=== PATIENT | male | born 1945 | race Caucasian/White ===

== ENCOUNTER → 2016-09-02 | Outpatient (CLI) | payer OTHER ==
[~2016-09-02] MED LIST: ADVIN25/60 INH; ADVIN25050 INH; CMBIN INH; IPRA1AER2 INH; LPT40 PO; LSN10 PO; LSX40 PO; MCRK20 PO; METO-217 PO; PRED10TA PO; TPRSR100 PO
[2016-09-02 17:03] LABS: BASO % 0.5 %; BASO ABS # 0.04 K/uL (0-0.2); COMPLETE YES; EOS % 3.8 %; HEMATOCRIT 44.5 % (42-52); IG% 0.3 %; LYMPH % 14.8 %; LYMPH ABS # 1.17 K/uL (1.2-3.4); MEAN CELL VOLUME 87.4 fL (80-100); MEAN CORPUSCULAR HEMOGLOBIN 29.3 pg (25-34); MEAN CORPUSCULAR HGB CONC 33.5 g/dl (32-36); MONO % 8.6 %; PLATELET COUNT 282 K/uL (130-400); RED BLOOD COUNT 5.09 M/uL (4.7-6.1); WHITE BLOOD COUNT 7.89 K/uL (4.8-10.8)
[2016-09-02 17:41] LABS: BLOOD UREA NITROGEN 13 mg/dl (7-18); BUN/CREATININE RATIO 15.2 (10-20); CALCIUM 9.3 mg/dl (8.5-10.1); CARBON DIOXIDE 27 mmol/L (21-32); CHLORIDE 104 mmol/L (98-107); CREATININE 0.88 mg/dl (0.60-1.40); GLUCOSE 67 mg/dl (70-99); POTASSIUM 4.9 mmol/L (3.5-5.1); SODIUM 141 mmol/L (136-145)
== END | disposition home or self-care (01) ==
LOC: C.LABBFT 17:10
PROVIDERS: ATTEND Internal Medicine
DX: Z00.00 Encounter for general adult medical examination without abnormal findings (principal); J44.9 Chronic obstructive pulmonary disease, unspecified; R06.09 Other forms of dyspnea; I10 Essential (primary) hypertension

== ENCOUNTER 2017-01-20 13:26 | Inpatient (IN) | payer OTHER ==
[~2017-01-20] VITALS: Ht 180.3 cm; Wt 111.7 kg
[~2017-01-20 13:26] MED LIST changes: -ADVIN25/60 INH; -LPT40 PO; -LSN10 PO; -LSX40 PO; -MCRK20 PO; -PRED10TA PO; -TPRSR100 PO
--- NOTE | 2017-01-20 14:25 | EMERGENCY ROOM VISIT NOTE ---
History Report prepared by George: Margarito Mariano Under the Supervision of: Dr. Tegan Jarrett D.O. First contact with patient: 14:00 Chief Complaint: SHORTNESS OF BREATH Stated Complaint: LEG SWELLING, SHORTNESS OF BREATH Nursing Triage Summary: triage note: pt to triage via wheelchair. pt reports "my legs are all swollen up and i can' t breathe i have inhalers but they are all empty, my leg swelling started about 1 week ago." pt reports hx of copd and chf. History of Present Illness The patient is a 71 year old male who presents to the Emergency Room with complaints of constant shortness of breath for the past week which is worsened with lying flat. Additionally, the patient states that he has been having leg swelling. The patient states that he has been coughing, and he is coughing up yellow-green and west sputum but this has been going on for weeks. He states that he uses inhalers, though one of them has run out. States as the week went on, he didn't feel that the nebs were helping as much. The patient states that he has been having some blood in his urine, though he does not have any hematochezia. The patient denies any history of CHF, and he states that his shortness of breath has never been this bad before. He states that he had heart surgery in 2000, and he had an AL and a CABG. The patient states that he is not on oxygen at home, and he is currently a smoker, down to 3 cigs per day. Pt denies headache, change in vision, fevers, chest pain, nausea, vomiting, diarrhea, pain with urination, and melena. Source of History: patient Onset: past week Position: other (global) Quality: other (shortness of breath) Timing: constant Modifying Factors (Worsening): other (lying flat) Note: Associated symptoms: Leg swelling Review of Systems See HPI for pertinent positives & negatives. A total of 10 systems reviewed and were otherwise negative. Past Medical & Surgical Medical Problems: (1) Chronic obstructive lung disease (2) Coronary artery bypass grafting (3) Coronary artery disease Social History Smoking Status: Current Every Day Smoker Marital Status: Occupation Status: employed Current/Historical Medications Scheduled Fluticasone Prop/Salmeterol (Advair Diskus 250/50 Mcg *), 1 PUFF INH BID Ipratropium-Albuterol (Combivent Respimat), 2 PUFFS INH QID Metoprolol Succinate (Toprol Xl), 100 MG PO DAILY Allergies Coded Allergies: Aspirin (Verified Allergy, Unknown, _, 12/16/14) TWO OCCASIONS OF RASH HAS TAKEN IT OTHER TIMES WITHOUT A RASH Physical Exam Vital Signs Date Time Temp Pulse Resp B/P (MAP) Pulse Ox O2 Delivery O2 Flow Rate FiO2 01/20/17 16:35 62 20 179/120 96 Nasal Cannula 1.0 01/20/17 15:17 61 20 142/87 96 Nasal Cannula 1.0 01/20/17 14:27 62 01/20/17 14:20 63 22 137/99 94 Room Air 01/20/17 14:20 94 Room Air 01/20/17 13:32 36.7 65 26 180/96 91 Room Air Physical Exam GENERAL: alert, well appearing, well nourished, no distress, non-toxic EYE EXAM: normal conjunctiva, PERRL and EOM's grossly intact OROPHARYNX: no exudate, no erythema, lips, buccal mucosa, and tongue normal and mucous membranes are moist NECK: supple, no nuchal rigidity, no adenopathy, non-tender LUNGS: Audible rales. Normal chest wall mechanics HEART: no murmurs, S1 normal and S2 normal ABDOMEN: abdomen soft, non-tender, normo-active bowel sounds, no masses, no rebound or guarding. BACK: Back is symmetrical on inspection and there is no deformity, no midline tenderness, no CVA tenderness. SKIN: no rashes and no bruising UPPER EXTREMITIES: upper extremities are grossly normal. LOWER EXTREMITIES: 3+ lower extremity edema. NEURO EXAM: Normal sensorium, cranial nerves II-XII grossly intact, normal speech, no gross weakness of arms, no gross weakness of legs. Gross sensation intact. Medical Decision & Procedures ER Provider Diagnostic Interpretation: Radiology results have been interpreted by the radiologist and reviewed by me. CHEST 2 VIEWS ROUTINE HISTORY: 71 years-old Male sob acute shortness of breath COMPARISON: Chest radiograph 03/14/2013 TECHNIQUE: AP and lateral views of the chest. FINDINGS: Cardiac silhouette is moderately enlarged. Prior median sternotomy. Atherosclerosis of the aorta. Lungs are hyperinflated and hyperlucent suggesting emphysema. Linear subsegmental opacities of the lung bases in the lateral mid lungs bilaterally suggest atelectasis with pleural parenchymal scarring. Mild blunting of the costophrenic angles suggests small effusions, unchanged. The bones of the chest are grossly intact. IMPRESSION: 1. Cardiomegaly without overt pulmonary edema. 2. Emphysema with unchanged blunting of the costophrenic angles suggesting scarring or trace effusions with bibasilar opacities likely reflecting atelectasis The above report was generated using voice recognition software. It may contain grammatical, syntax or spelling errors. Electronically signed by: Jose Mittal M.D. 01/20/2017 2:58 PM Dictated Date/Time: 01/20/2017 2:56 PM Laboratory Results 01/20/17 14:08 Red Blood Count 4.94, Mean Corpuscular Volume 90.3, Mean Corpuscular Hemoglobin 31.0, Mean Corpuscular Hemoglobin Concent 34.3, Mean Platelet Volume 10.1, Neutrophils (%) (Auto) 83.8, Lymphocytes (%) (Auto) 8.2, Monocytes (%) (Auto) 6.7, Eosinophils (%) (Auto) 0.9, Basophils (%) (Auto) 0.3, Neutrophils # (Auto) 8.03, Lymphocytes # (Auto) 0.79, Monocytes # (Auto) 0.64, Eosinophils # (Auto) 0.09, Basophils # (Auto) 0.03 01/20/17 14:08 Test 01/20/17 14:08 01/20/17 14:20 01/20/17 16:30 White Blood Count 9.59 K/uL (4.8-10.8) Red Blood Count 4.94 M/uL (4.7-6.1) Hemoglobin 15.3 g/dL (14.0-18.0) Hematocrit 44.6 % (42-52) Mean Corpuscular Volume 90.3 fL (80-100) Mean Corpuscular Hemoglobin 31.0 pg (25-34) Mean Corpuscular Hemoglobin Concent 34.3 g/dl (32-36) Platelet Count 216 K/uL (130-400) Mean Platelet Volume 10.1 fL (7.4-10.4) Neutrophils (%) (Auto) 83.8 % Lymphocytes (%) (Auto) 8.2 % Monocytes (%) (Auto) 6.7 % Eosinophils (%) (Auto) 0.9 % Basophils (%) (Auto) 0.3 % Neutrophils # (Auto) 8.03 K/uL (1.4-6.5) Lymphocytes # (Auto) 0.79 K/uL (1.2-3.4) Monocytes # (Auto) 0.64 K/uL (0.11-0.59) Eosinophils # (Auto) 0.09 K/uL (0-0.5) Basophils # (Auto) 0.03 K/uL (0-0.2) RDW Standard Deviation 48.9 fL (36.4-46.3) RDW Coefficient of Variation 14.8 % (11.5-14.5) Immature Granulocyte % (Auto) 0.1 % Immature Granulocyte # (Auto) 0.01 K/uL (0.00-0.02) Prothrombin Time 12.8 SECONDS (9.0-12.0) Prothromb Time International Ratio 1.2 (0.9-1.1) Anion Gap 9.0 mmol/L (3-11) Est Creatinine Clear Calc Drug Dose 97.6 ml/min Estimated GFR () 91.3 Estimated GFR (Non- 78.8 BUN/Creatinine Ratio 17.3 (10-20) Calcium Level 8.9 mg/dl (8.5-10.1) Magnesium Level 2.1 mg/dl (1.8-2.4) Total Bilirubin 1.1 mg/dl (0.2-1) Aspartate Amino Transf (AST/SGOT) 23 U/L (15-37) Alanine Aminotransferase (ALT/SGPT) 22 U/L (12-78) Alkaline Phosphatase 103 U/L (45-117) Troponin I 0.094 ng/ml (0-0.045) Pro-B-Type Natriuretic Peptide 87732 pg/ml (0-900) Total Protein 7.2 gm/dl (6.4-8.2) Albumin 3.7 gm/dl (3.4-5.0) Globulin 3.5 gm/dl (2.5-4.0) Albumin/Globulin Ratio 1.1 (0.9-2) Bedside Lactic Acid Venous 1.42 mmol/L (0.90-1.70) Urine Color YELLOW Urine Appearance CLEAR (CLEAR) Urine pH 5.5 (4.5-7.5) Urine Specific [place] 1.014 (1.000-1.030) Urine Protein TRACE (NEG) Urine Glucose (UA) NEG (NEG) Urine Ketones NEG (NEG) Urine Occult Blood NEG (NEG) Urine Nitrite NEG (NEG) Urine Bilirubin NEG (NEG) Urine Urobilinogen NEG (NEG) Urine Leukocyte Esterase NEG (NEG) Urine WBC (Auto) 0 /hpf (0-5) Urine RBC (Auto) 0-4 /hpf (0-4) Urine Hyaline Casts (Auto) 0 /lpf (0-5) Urine Epithelial Cells (Auto) 0-5 /lpf (0-5) Urine Bacteria (Auto) NEG (NEG) Laboratory results per my review. Medications Administered Medications (Trade) Dose Ordered Sig/Marni Route Start Time Stop Time Status Last Admin Dose Admin Furosemide (Lasix Inj) 40 mg NOW STAT IV 01/20/17 15:12 01/20/17 15:14 DC 01/20/17 15:22 40 MG ECG Indication: SOB/dyspnea Rate (beats per minute): 62 Rhythm: sinus rhythm Findings: PVC (occasional), RBBB, no acute ischemic change, left axis deviation , other (ST changes) Comparison ECG Date: 03/04/13 Change: ST changes are similar ED Course 1400: The patient was evaluated in room C4. A complete history and physical exam was performed. 1512: Lasix 40mg IV 1518: I reevaluated the patient, and I updated him on the treatment plan. He was agreeable and will be further evaluated. 1519: I reviewed the patient's case with Dr. Ash, [facility] [place]. She will evaluate the patient for further management. Medical Decision Differential diagnosis: Etiologies such as infections, reactive airway disease, pneumonia, pneumothorax , COPD, CHF, cardiac ischemia, pulmonary embolism, musculoskeletal, gastrointestinal, as well as others were entertained. Pt well appearing despite complaints. Doubt infectious etiology. Likely acute on chronic chf. Doubt acute COPD exacerbation although patient continues to smoke. No overt hypoxia at rest, however pt feels improved with minimal oxygen via nc. VS otw stable. Pt with ASA allergy. I feel elevated trop likely secondary to CHF, doubt primary ACS. Doubt PE. Small effusions chronic. Pt given dose of lasix in ER. Medication Reconcilliation Current Medication List: was personally reviewed by me Blood Pressure Screening Patient's blood pressure: Elevated blood pressure Monitored by the hospitalist Consults Time Called: [phone] Consulting Physician: SAVANA Cowan Returned Call: [phone] I reviewed the patient's case with SAVANA Cowan. She will evaluate the patient for further management. Impression Primary Impression: Dyspnea Additional Impressions: CHF (congestive heart failure) Elevated troponin Tobacco abuse Scribe Attestation The scribe's documentation has been prepared under my direction and personally reviewed by me in its entirety. I confirm that the note above accurately reflects all work, treatment, procedures, and medical decision making performed by me. Departure Information Dispostion Being Evaluated By Hospitalist Referrals Mary Kate Mireles M.D. (PCP) Patient Instructions [facility] Problem Qualifiers Primary Impression: Dyspnea Dyspnea type: dyspnea on exertion Qualified Codes: R06.09 - Other forms of dyspnea Additional Impressions: CHF (congestive heart failure) Congestive heart failure type: combined Congestive heart failure chronicity: acute on chronic Qualified Codes: I50.43 - Acute on chronic combined systolic (congestive) and diastolic (congestive) heart failure
[2017-01-20 14:29] LABS: BASO % 0.3 %; BASO ABS # 0.03 K/uL (0-0.2); COMPLETE YES; EOS % 0.9 %; HEMATOCRIT 44.6 % (42-52); IG% 0.1 %; LYMPH % 8.2 %; LYMPH ABS # 0.79 K/uL (1.2-3.4); MEAN CELL VOLUME 90.3 fL (80-100); MEAN CORPUSCULAR HGB CONC 34.3 g/dl (32-36); MEAN PLATELET VOLUME 10.1 fL (7.4-10.4); MONO % 6.7 %; NEUT % 83.8 %; PLATELET COUNT 216 K/uL (130-400); RED BLOOD COUNT 4.94 M/uL (4.7-6.1); WHITE BLOOD COUNT 9.59 K/uL (4.8-10.8)
[2017-01-20 14:38] LABS: INR 1.2 (0.9-1.1); PROTHROMBIN TIME (PATIENT) 12.8 SECONDS (9.0-12.0)
[2017-01-20 14:51] LABS: BUN/CREATININE RATIO 17.3 (10-20); CALCIUM 8.9 mg/dl (8.5-10.1); CREATININE 0.97 mg/dl (0.60-1.40); MAGNESIUM 2.1 mg/dl (1.8-2.4); POTASSIUM 4.1 mmol/L (3.5-5.1)
[2017-01-20 14:57] LABS: ALB/GLOB RATIO 1.1 (0.9-2)
--- NOTE | 2017-01-20 14:59 | DIAGNOSTIC IMAGING REPORT ---
CHEST 2 VIEWS ROUTINE HISTORY: 71 years-old Male sob acute shortness of breath COMPARISON: Chest radiograph 03/14/2013 TECHNIQUE: AP and lateral views of the chest. FINDINGS: Cardiac silhouette is moderately enlarged. Prior median sternotomy. Atherosclerosis of the aorta. Lungs are hyperinflated and hyperlucent suggesting emphysema. Linear subsegmental opacities of the lung bases in the lateral mid lungs bilaterally suggest atelectasis with pleural parenchymal scarring. Mild blunting of the costophrenic angles suggests small effusions, unchanged. The bones of the chest are grossly intact. IMPRESSION: 1. Cardiomegaly without overt pulmonary edema. 2. Emphysema with unchanged blunting of the costophrenic angles suggesting scarring or trace effusions with bibasilar opacities likely reflecting atelectasis The above report was generated using voice recognition software. It may contain grammatical, syntax or spelling errors. Electronically signed by: Jose Mittal M.D. 01/20/2017 2:58 PM Dictated Date/Time: 01/20/2017 2:56 PM
[2017-01-20] MEDS ORDERED: FUROSEMIDE 40 MG/4 ML VIAL IV STA (15:12)
[2017-01-20 16:46] LABS: MANUAL MICROSCOPIC REQUIRED? NO; REVIEW REQ? NO; URINE APPEARANCE CLEAR (CLEAR); URINE BILIRUBIN NEG (NEG); URINE COLOR YELLOW; URINE EPITHELIAL CELL AUTO 0-5 /lpf (0-5); URINE NITRITE NEG (NEG); URINE PH 5.5 (4.5-7.5); URINE SPECIFIC GRAVITY 1.014 (1.000-1.030); UROBILINOGEN NEG (NEG); ZZUR CULT IF INDIC CLEAN CATCH NO
[2017-01-20] MEDS ORDERED: ALUMINUM/MAGNESIUM/SIMETH (MAALOX MAX) 30 ML UDC PO PRN (18:45)
[2017-01-20] MEDS ORDERED: MAGNESIUM HYDROXIDE SUSP 30 ML UDC PO PRN (18:45)
[2017-01-20] MEDS ORDERED: ACETAMINOPHEN 325 MG TAB PO PRN (18:45)
[2017-01-20] MEDS ORDERED: POLYETHYLENE (MIRALAX) 17 GM PACK PO PRN (18:45)
[2017-01-20] MEDS ORDERED: ONDANSETRON INJ 2 MG/ML 2 ML VIAL IV PRN (18:45)
--- NOTE | 2017-01-20 18:58 | History and Physical ---
History & Physical Date & Time of Service: Jan 20, 2017 at 18:51 Chief Complaint: Leg Swelling, Shortness Of Breath Primary Care Physician: Mary Kate Mireles M.D. History of Present Illness Source: patient Mr. Gallego is a 71 y/o male with PMHx of CAD S/P IL and CABG (2000), COPD, and Neurocardiogenic Syncope who presents to the ED c/o progressive SOB x 1 week. Patient reports that he has had progressive CAMPO and orthopnea. He states he has some SOB at rest but is minimal. He states he can only walk about 3 steps before he needs to stop. During exam, he appeared SOB with limited movement in the bed. He states that his legs have been progressively swelling as well. He has been utilizing his home inhalers but reports that he had no relief from them. Also reports he currently ran out of medicine in them. He reports a cough that has been present for weeks and occasionally productive of green/yellow sputum. He feels that his chest is tight and cannot always expel sputum. He has noticed intermittent wheezing. He states he does not have a nebulizer machine at home. He currently smokes 3 cigarettes a day. He reports that he used to follow with cardiology for his syncopal episodes but denies knowledge of CHF. He reports taking a water pills for approx 8 days in the past but never on this type of medication [facility]. Per echocardiogram in 2009, patient has an EF 30-35% with moderate-severe global hypokinesis of LV, regional wall motion abnormalities, and apical akinesis. Patient reports starting Toprol XL for his syncopal episodes. He has not followed with cardiology since 2012. He received Lasix 40 mg IV x 1 dose in ED and diuresed for 2L and reporting improvement in symptoms. He also reports hematuria but denies further urinary symptoms. He denies fever/chills, CP, N/V, abdominal pain , diarrhea/constipation, melena/hematochezia. Past Medical/Surgical History Medical Problems: (1) Chronic obstructive lung disease Status: Chronic (2) Coronary artery bypass grafting Status: Chronic (3) Coronary artery disease Status: Chronic Neurocardiogenic syncope Chronic systolic CHF Family History Diabetes mellitus Heart Disese Hypertension Social History Smoking Status: Current Every Day Smoker (3 cigarettes a day) Alcohol Use: socially Drug Use: none Housing status: lives with friends (caregiver) Occupational Status: employed Immunizations History of Influenza Vaccine: No History of Tetanus Vaccine?: No History of Pneumococcal: No History of Hepatitis B Vaccine: No Multi-Drug Resistant Organisms History of MDRO: No Allergies Coded Allergies: Aspirin (Verified Allergy, Unknown, _, 12/16/14) TWO OCCASIONS OF RASH HAS TAKEN IT OTHER TIMES WITHOUT A RASH Home Medications Scheduled Fluticasone Prop/Salmeterol (Advair Diskus 250/50 Mcg *), 1 PUFF INH BID Ipratropium-Albuterol (Combivent Respimat), 2 PUFFS INH QID Metoprolol Succinate (Toprol Xl), 100 MG PO DAILY Review of Systems Constitutional: No fever, No chills ENT: No nasal symptoms, No sore throat, No trouble swallowing Respiratory: + cough, + sputum, + wheezing, + dyspnea on exertion, No dyspnea at rest, No hemoptysis Cardiovascular: + orthopnea, + edema (bilateral lower extremities), No chest pain, No palpitations Abdomen: No pain, No nausea, No vomiting, No diarrhea, No constipation, No GI bleeding Musculoskeletal: + swelling (bilateral lower extremities), No calf pain Genitourinary - Male: No dysuria Hematologic / Lymphatic: No abnormal bleeding/bruising, No clotting problems Integumentary: No rash Physical Exam Vital Signs Date Time Temp Pulse Resp B/P (MAP) Pulse Ox O2 Delivery O2 Flow Rate FiO2 01/20/17 18:28 68 01/20/17 18:06 65 20 164/101 95 Nasal Cannula 1.0 01/20/17 16:35 62 20 179/120 96 Nasal Cannula 1.0 01/20/17 15:17 61 20 142/87 96 Nasal Cannula 1.0 01/20/17 14:27 62 01/20/17 14:20 63 22 137/99 94 Room Air 01/20/17 14:20 94 Room Air 01/20/17 13:32 36.7 65 26 180/96 91 Room Air General Appearance: WD/WN, + mild distress (respiratory) Head: normocephalic, atraumatic Eyes: sclerae normal ENT: hearing grossly normal Neck: supple Respiratory/Chest: no accessory muscle use, + respiratory distress, + decreased breath sounds (diminished throughout), + wheezing, + pertinent finding (course breath sounds throughout) Cardiovascular: regular rate, rhythm, no gallop, no murmur Abdomen/GI: normal bowel sounds, non tender, soft Extremities/Musculoskelatal: no calf tenderness, + swelling (bilateral 3+ pitting edema extending to knees; skin dry and scaling) Neurologic/Psych: alert, oriented x 3, + facial droop (chronic L mouth) Skin: normal color, warm/dry Diagnostics Laboratory Results Results Past 24 Hours Test 01/20/17 14:08 01/20/17 14:20 01/20/17 16:30 Range/Units White Blood Count 9.59 4.8-10.8 K/uL Red Blood Count 4.94 4.7-6.1 M/uL Hemoglobin 15.3 14.0-18.0 g/dL Hematocrit 44.6 42-52 % Mean Corpuscular Volume 90.3 80-100 fL Mean Corpuscular Hemoglobin 31.0 25-34 pg Mean Corpuscular Hemoglobin Concent 34.3 32-36 g/dl Platelet Count 216 130-400 K/uL Mean Platelet Volume 10.1 7.4-10.4 fL Neutrophils (%) (Auto) 83.8 % Lymphocytes (%) (Auto) 8.2 % Monocytes (%) (Auto) 6.7 % Eosinophils (%) (Auto) 0.9 % Basophils (%) (Auto) 0.3 % Neutrophils # (Auto) 8.03 1.4-6.5 K/uL Lymphocytes # (Auto) 0.79 1.2-3.4 K/uL Monocytes # (Auto) 0.64 0.11-0.59 K/uL Eosinophils # (Auto) 0.09 0-0.5 K/uL Basophils # (Auto) 0.03 0-0.2 K/uL RDW Standard Deviation 48.9 36.4-46.3 fL RDW Coefficient of Variation 14.8 11.5-14.5 % Immature Granulocyte % (Auto) 0.1 % Immature Granulocyte # (Auto) 0.01 0.00-0.02 K/uL Prothrombin Time 12.8 9.0-12.0 SECONDS Prothromb Time International Ratio 1.2 0.9-1.1 Sodium Level 139 136-145 mmol/L Potassium Level 4.1 3.5-5.1 mmol/L Chloride Level 104 98-107 mmol/L Carbon Dioxide Level 26 21-32 mmol/L Anion Gap 9.0 3-11 mmol/L Blood Urea Nitrogen 17 7-18 mg/dl Creatinine 0.97 0.60-1.40 mg/dl Est Creatinine Clear Calc Drug Dose 97.6 ml/min Estimated GFR () 91.3 Estimated GFR (Non- 78.8 BUN/Creatinine Ratio 17.3 10-20 Random Glucose 70 70-99 mg/dl Calcium Level 8.9 8.5-10.1 mg/dl Magnesium Level 2.1 1.8-2.4 mg/dl Total Bilirubin 1.1 0.2-1 mg/dl Aspartate Amino Transf (AST/SGOT) 23 15-37 U/L Alanine Aminotransferase (ALT/SGPT) 22 12-78 U/L Alkaline Phosphatase 103 45-117 U/L Troponin I 0.094 0-0.045 ng/ml Pro-B-Type Natriuretic Peptide 98588 0-900 pg/ml Total Protein 7.2 6.4-8.2 gm/dl Albumin 3.7 3.4-5.0 gm/dl Globulin 3.5 2.5-4.0 gm/dl Albumin/Globulin Ratio 1.1 0.9-2 Bedside Lactic Acid Venous 1.42 0.90-1.70 mmol/L Urine Color YELLOW Urine Appearance CLEAR CLEAR Urine pH 5.5 4.5-7.5 Urine Specific [place] 1.014 1.000-1.030 Urine Protein TRACE NEG Urine Glucose (UA) NEG NEG Urine Ketones NEG NEG Urine Occult Blood NEG NEG Urine Nitrite NEG NEG Urine Bilirubin NEG NEG Urine Urobilinogen NEG NEG Urine Leukocyte Esterase NEG NEG Urine WBC (Auto) 0 0-5 /hpf Urine RBC (Auto) 0-4 0-4 /hpf Urine Hyaline Casts (Auto) 0 0-5 /lpf Urine Epithelial Cells (Auto) 0-5 0-5 /lpf Urine Bacteria (Auto) NEG NEG Diagnostic Radiology CHEST 2 VIEWS ROUTINE FINDINGS: Cardiac silhouette is moderately enlarged. Prior median sternotomy. Atherosclerosis of the aorta. Lungs are hyperinflated and hyperlucent suggesting emphysema. Linear subsegmental opacities of the lung bases in the lateral mid lungs bilaterally suggest atelectasis with pleural parenchymal scarring. Mild blunting of the costophrenic angles suggests small effusions, unchanged. The bones of the chest are grossly intact. IMPRESSION: 1. Cardiomegaly without overt pulmonary edema. 2. Emphysema with unchanged blunting of the costophrenic angles suggesting scarring or trace effusions with bibasilar opacities likely reflecting atelectasis EKG Sinus rhythm with occasional Premature ventricular complexes Right bundle branch block Left anterior fascicular block Bifascicular block Minimal voltage criteria for LVH, may be normal variant Septal infarct (cited on or before 21-APR-2011) Abnormal ECG When compared with ECG of 04-MAR-2013 12:19, T wave inversion no longer evident in Inferior leads T wave inversion less evident in Lateral leads Impression Assessment and Plan Mr. Gallego is a 71 y/o male with PMHx of CAD S/P IL and CABG (2000), COPD, and Neurocardiogenic Syncope who presents to the ED c/o progressive SOB x 1 week. Patient reports that he has had progressive CAMPO and orthopnea. Acute Systolic Congestive Heart Failure: - Echo from 2009 reveals EF 30-35% with global hypokinesis and wall motion abnormalities - Has been placed on Toprol XL for syncope episodes per his report - Obtain updated echo - results will help determine further medicinal intervention with possibe ACEI? - Daily weights and I&Os - continue heart healthy diet and low Na diet - Lasix 40 mg IV x 1 dose - diuresed for negative 2L - Consult cardiology - appreciate recommendations and re-establishment for outpatient management Acute COPD Exacerbation: Mild - Prednisone 60 mg po daily and taper over one week - Doxycycline 100 mg po BID - Duonebs [facility] and PRN - Mucinex BID Neurocardiogenic Syncope: - Toprol XL 100 mg daily DVT Prophylaxis: Heparin 5000 units SC Q8H Code Status: FULL RESUSCITATION Disposition: - Continue diuresis and await updated echo for further management - Patient lives at home with caregiver/friend Level of Care Telemetry Resuscitation Status FULL RESUSCITATION VTE Prophylaxis VTE Risk Assessment Done? Y/N: Yes Risk Level: Moderate Given or contraindicated: Unfractionated heparin SQ, SCD's Social Service Consult None Apply Reviewed: Pt Seen/Exam by Me History Physician Brand Activation Manager Supervision Note: I interviewed and examined the patient. Discussed with SHERRON Sanford and agree with findings and plan as documented in the note. Any exceptions or clarifications are listed here: This patient is a 71-year-old male with history of CAD and CABG in 2000, chronic systolic CHF, COPD, current smoker, who presents to the ER with 1 week of progressively worsening dyspnea on exertion, orthopnea, and lower extremity edema. He notes he is gained about 40 pounds in the last 9-10 months but a lot of that he thinks his fluid weight in the last week. He reports he always has a full 22 ounce water cup available for drinking when he is sitting in his chair watching TV. He also frequency the local bar couple times a week only drinking 3 beers at a sitting. He was found to be mildly hypoxic with a pulse ox of 91%, a markedly elevated proBNP of 27,000, chest x-ray with findings of CHF and small bilateral pleural effusions with cardiomegaly. He is being admitted for acute on chronic systolic CHF and likely COPD exacerbation as well. Chest x-ray, labs, and EKG all personally reviewed by me Vital signs reviewed No acute distress, obese Difficult to auscultate his heart sounds over diffuse rhonchi and wheezes, but no apparent murmur, regular rate and rhythm Lungs as above with diffuse extremity wheezes and with rhonchi, decreased breath sounds at the bases bilaterally Abdomen positive bowel sounds soft nontender nondistended obese Extremities 3+ pitting edema to the thighs bilaterally 71-year-old male with history of CAD and CABG, chronic systolic CHF, COPD, and current smoker, who is here with acute on chronic systolic CHF and COPD acute exacerbation. -Nebulizers, Solu-Medrol 1 dose now and then switched to by mouth prednisone in the morning, doxycycline for COPD exacerbation -Diurese with IV Lasix and he is artery responding nicely to the dose received in the ER -Follow renal function and electrolytes with diuresis -Strict I's and O's, daily weights, low sodium diet, fluid restriction- counseled patient on avoidance of excessive fluid especially with alcohol use -Strongly encouraged smoking cessation as well -Appreciate cardiology consultation -Updated echocardiogram in order -Heparin subcutaneous for DVT prophylaxis Documented By: Samantha Ash
[2017-01-20] MEDS ORDERED: ALBUT/IPRATROP 3MG/0.5MG NEB 3 ML VIAL INH PRN (19:00)
[2017-01-20] MEDS: ALBUT/IPRATROP 3MG/0.5MG NEB 3 ML VIAL NEB SCH (20:21)
[2017-01-20 20:25] VITALS: PULSE 82; O2SAT 94
[2017-01-20 20:47] VITALS: BP 166/95; PULSE 70; TEMP 36.5; O2SAT 98; Ht 180.3 cm; Wt 111.7 kg
[2017-01-20] MEDS ORDERED: INFLUENZA ADMINISTRATION CHARGE ONE (21:30)
[2017-01-20] MEDS ORDERED: INFLUENZA VACCINE HIGH DOSE 65+ 0.5 ML SYR IM. ONE (21:30)
[2017-01-20] MEDS ORDERED: PNEUMOCOCCAL ADMINISTRATION CHARGE ONE (21:30)
[2017-01-20] MEDS ORDERED: PNEUMOCOCCAL POLYSACCHARIDES 25 MCG/0.5 ML VIAL/SYR IM. ONE (21:30)
[2017-01-20] MEDS: DOXYCYCLINE HYCLATE 100 MG CAP PO SCH (22:23)
[2017-01-20] MEDS: FLUTICASONE/SALMETEROL 250/50 (ADVAIR) 14 PUFF/1 INHALER INH SCH (22:23)
[2017-01-20] MEDS: HEPARIN SOD 5000 UNIT/0.5 ML CARP SQ SCH (22:24)
[2017-01-20] MEDS ORDERED: METHYLPREDNISOLONE IV 125 MG in SYRINGE 0 ML IV SCH (23:00)
[2017-01-20 23:43] VITALS: BP 143/77; PULSE 78; TEMP 36.4; O2SAT 95
[2017-01-21] VITALS (14 sets, daily range): BP systolic 144–199; BP diastolic 79–143; PULSE 45–97; TEMP 36.2–36.9; O2SAT 91–98
[2017-01-21] MEDS: ALBUT/IPRATROP 3MG/0.5MG NEB 3 ML VIAL NEB SCH ×5 (02:57→19:24)
[2017-01-21] MEDS: HEPARIN SOD 5000 UNIT/0.5 ML CARP SQ SCH ×3 (06:24→20:56)
[2017-01-21 06:32] LABS: HEMATOCRIT 44.6 % (42-52); MEAN CELL VOLUME 89.9 fL (80-100); MEAN CORPUSCULAR HEMOGLOBIN 30.2 pg (25-34); MEAN CORPUSCULAR HGB CONC 33.6 g/dl (32-36); MEAN PLATELET VOLUME 10.2 fL (7.4-10.4); PLATELET COUNT 186 K/uL (130-400); RED BLOOD COUNT 4.96 M/uL (4.7-6.1); WHITE BLOOD COUNT 5.48 K/uL (4.8-10.8)
[2017-01-21 07:09] LABS: BUN/CREATININE RATIO 20.2 (10-20); CALCIUM 8.8 mg/dl (8.5-10.1); CREATININE 0.84 mg/dl (0.60-1.40); POTASSIUM 4.2 mmol/L (3.5-5.1)
[2017-01-21 07:13] LABS: CHOLESTEROL/HDL RATIO 3.7
[2017-01-21] MEDS: METOPROLOL SUCC 50MG EXT REL TAB PO SCH (07:34)
[2017-01-21] MEDS: FLUTICASONE/SALMETEROL 250/50 (ADVAIR) 14 PUFF/1 INHALER INH SCH ×2 (07:34→20:54)
[2017-01-21] MEDS: DOXYCYCLINE HYCLATE 100 MG CAP PO SCH ×2 (07:35→20:54)
[2017-01-21] MEDS: GUAIFENESIN 600 MG TABCR PO SCH ×2 (07:35→20:54)
[2017-01-21] MEDS: FUROSEMIDE INJ 40 MG in SYRINGE 0 ML IV SCH (07:46)
--- NOTE | 2017-01-21 10:55 | ECHOCARDIOGRAM REPORT ---
*NOTICE TO RECEIVING [employer] This information is strictly Confidential and protected under [place] law. [place] law prohibits you from making any further disclosure of this information unless further disclosure is expressly permitted by the written consent of the person to whom it pertains or is authorized by law. A general authorization for the release of medical or other information is not sufficient for this purpose. Hospital accepts no responsibility if the information is made available to any other person, INCLUDING THE PATIENT. Interpretation Summary * Name: ADRIA FERRERA Study Date: 01/21/2017 07:02 AM BP: 155/79 mmHg * Patient Location: .2T\S\S229\S\1 HR: 64 * : 1945 (M/d/yyy) Gender: Male Height: 72 in * Age: 71 yrs Ethnicity: CA Weight: 279 lb * Ordering Physician: Ana Rosa Sanford * Referring Physician: Mary Kate Mireles * Performed By: Latoya Sofia RDCS * * Reason For Study: Congestive heart failure * BSA: 2.5 m2 * -- Conclusions -- * 1. Left ventricle is not well visualized. Left ventricle appears moderately dilated with moderately to severely reduced systolic function. Estimated EF 35% (but poor image quality). Akinesis of apex, distal anterior, distal lateral, distal septal, and distal inferior wall segments. Otherwise, global hypokinesis. Type I diastolic dysfunction. * 2. Moderate to severe biatrial dilation. * 3. No significant valvular abnormalities visualized, but valves were not well seen. * 4. Technically difficult study with poor image quality. Image quality enhanced somewhat with IV Definity. * 5. Similar findings compared to prior study on 05/22/2009. Procedure Details * A complete two-dimensional transthoracic echocardiogram was performed (2D, M-mode, Doppler and color flow Doppler). * The study was technically limited. * The study was technically difficult. * Limited views were obtained. * There were technical limitations due to patient'sPoor acoustic windows secondary to severe lung disease. * A contrast injection of Definity was performed to improve assessment of LV function. * Contrast was injected into an intravenous site in the left arm. * One vial of Definity ultrasound contrast was diluted in normal saline to a total volume of 10 ml. A total of '3' ml of solution was administered during imaging. * Lot # [id number] of Definity utilized for procedure. * Expiration date MAR 13. * The attending nurse who injected the contrast agent was Leonard Graves RN. Left Ventricle * Left ventricle is not well visualized. Left ventricle appears moderately dilated with moderately to severely reduced systolic function. Estimated EF 35% (but poor image quality). Akinesis of apex, distal anterior, distal lateral, distal septal, and distal inferior wall segments. Type I diastolic dysfunction. Right Ventricle * The right ventricle is not well visualized. Atria * Moderate to severe left atrial dilation. * The right atrium is moderate to severely dilated. Mitral Valve * The mitral valve is grossly normal. * There is mild mitral annular calcification. * There is no mitral valve stenosis. * Significant mitral regurgitation is absent. Tricuspid Valve * The tricuspid valve is not well visualized. Aortic Valve * The aortic valve is not well visualized. * No hemodynamically significant valvular aortic stenosis. * There is no significant aortic regurgitation. Pulmonic Valve * The pulmonic valve is not well visualized. Great Vessels * The aortic root is not well visualized. Pericardium/Pleural * There is no pericardial effusion. Great Vessels * IVC not well visualized. Left Ventricular Diastolic Function * Grade I diastolic dysfunction, (abnormal relaxation pattern). MMode 2D Measurements and Calculations LVIDd 6.4 cm EDV(Teich) 205.4 ml EDV(cubed) 256.9 ml LVAd ap4 35.0 cm\S\2 LVLd ap4 8.6 cm EDV(MOD-sp4) 120.1 ml EDV(sp4-el) 121.5 ml LVAs ap4 27.8 cm\S\2 LVLs ap4 8.2 cm ESV(MOD-sp4) 76.5 ml ESV(sp4-el) 79.8 ml EF(MOD-sp4) 36.3 % EF(sp4-el) 34.3 % SV(MOD-sp4) 43.5 ml SI(MOD-sp4) 17.7 ml/m\S\2 SV(sp4-el) 41.7 ml SI(sp4-el) 17.0 ml/m\S\2 Doppler Measurements and Calculations MV E max jesse 76.2 cm/sec MV A max jesse 107.2 cm/sec MV E/A 0.71 MV dec time 0.12 sec Ao V2 max 103.9 cm/sec Ao max PG 4.3 mmHg Ao max PG (full) 2.1 mmHg LV V1 max PG 2.2 mmHg LV V1 max 74.2 cm/sec
[2017-01-21] MEDS ORDERED: LISINOPRIL 5 MG TAB PO ONE (11:45)
--- NOTE | 2017-01-21 12:42 | CARDIOLOGY CONSULTATION ---
DATE OF CONSULTATION: 01/21/2017 TIME: 11:49 a.m. PRIMARY SHEEP FARMER: Dr. Shane Skelton MD CONSULTING PHYSICIAN: Ana Rosa Sanford PA-C REASON FOR CONSULTATION: Systolic CHF. HISTORY OF PRESENT ILLNESS: Mr. Gallego is a pleasant 71-year-old gentleman with a history significant for CAD status post CABG x2 in 2000, ischemic cardiomyopathy, COPD, syncope, and hypertension. He had last been evaluated by Dr. Skelton in February of 2013 and has failed to show up to his last 2 scheduled appointments. He was seen acutely yesterday in the office of his PCP for shortness of breath. For the past week or so, he has had increased cough with yellow/west/green sputum, shortness of breath, orthopnea, PND, and edema. He estimates approximately 35-pound weight gain in the past few weeks. He states that he maintains a low sodium diet. He typically sleeps with 3 pillows, but has been sleeping in a recliner for the past week due to shortness of breath. Since being admitted, he has been given IV diuretics and is feeling somewhat better. Nursing staff reports that he is diuresing well. He has been diagnosed with neurocardiogenic syncope. He has not had a syncopal episode for at least 2 years. He states that syncope had improved following titration of beta giles therapy. He denies melena, hematochezia, hematuria, or other bleeding. He denies stroke, stroke-like symptoms, abdominal pain, nausea or vomiting. He has not required sleeping bag filler diuretic therapy in the past. He remembers being on diuretic transiently in the past when he had edema, but has not taken any standing doses of diuretics. REVIEW OF SYSTEMS: As above and review of systems negative or unremarkable. PAST MEDICAL HISTORY: 1. CAD status post CABG x2 in 2000. 2. Cardiac catheterization on 12/04/2000 demonstrated severe LMCA stenosis of 99% distally. There was also mild CAD involving the RCA. Collateral flow from the RCA to the LAD and circumflex marginal system. 3. Ischemic cardiomyopathy. 4. Syncope. 5. Hypertension. 6. COPD. 7. Tobacco abuse. 8. History of orthostatic hypotension. HOME MEDICATIONS: Include Advair Diskus, Combivent, and metoprolol succinate 100 mg daily. INPATIENT MEDICATIONS: Include Lasix 40 mg IV daily, heparin 5000 units subQ q. 8 hours, metoprolol succinate 100 mg daily, prednisone 60 mg daily, and Advair Diskus 1 puff b.i.d. ALLERGIES: LISTED ASPIRIN. HE STATES THAT HE TOOK MEDICATIONS WITH ASPIRIN IN THE PAST AND HAD RASH. He takes some medication products now with aspirin as well, but states he tolerates it. SOCIAL HISTORY: Continues to smoke approximately 3 cigarettes per day. He has smoked up to 1 pack per day in the past. Occasional alcohol. and lives with his . No children. Retired. Currently, unaccompanied in his hospital room. FAMILY HISTORY: Father had CAD. PHYSICAL EXAMINATION: VITAL SIGNS: Temperature 36.4 degrees, heart rate 97 beats per minute, respiratory rate 20, blood pressure 187/122 mmHg, and oxygen saturation 91% on room air. I's and O's negative 2 liters yesterday. Weight 118.7 kilograms down from 119.2 on presentation. GENERAL: In no acute distress. He is alert and oriented. HEENT: Anicteric sclerae. NECK: Thick. Hepatojugular reflux noted. No bruits. Normal carotid upstrokes bilaterally. CARDIAC EXAMINATION: PMI was nonpalpable. There was no ventricular heave. Regular with ectopy, normal S1 and S2. No audible murmurs, rubs or gallops. LUNGS: Expiratory wheezing bilaterally. ABDOMEN: Soft, nontender, and nondistended. Normoactive bowel sounds. No bruits noted. EXTREMITIES: 1+ bilateral lower extremity edema to above the knees. 2+ right radial pulse. Status post left radial artery harvest. Weak distal dorsalis pedis pulses bilaterally. No cyanosis. No palpable cords. PSYCHIATRIC: Affect appears appropriate. LABORATORY DATA: WBC 5.46, hemoglobin 15, and platelets 186. Sodium 140, potassium 4.2, BUN 17, and creatinine 0.84. Peak troponin 0.095. ProBNP 26,363. LDL 95, HDL 40, and triglycerides 66. Magnesium 2.1. Albumin 3.7. INR 1.2. Chest x-ray personally reviewed. No obvious infiltrate. Radiology as interpreted chest x-ray has cardiomegaly without overt pulmonary edema. Emphysema. Echocardiogram personally reviewed. Poor image quality, which may affect interpretation. Left ventricle appears moderately dilated with moderate to severe reduced systolic function. Estimated EF 35%. Distal wall segments and the apex appear akinetic. Otherwise, global hypokinesis. Type 1 diastolic dysfunction. Moderate to severe biatrial dilation. No significant valvular abnormalities visualized, but the valves are not well seen. ECG personally reviewed. ECG on 01/20/2017 at 14:19 demonstrated sinus rhythm with occasional PVCs. Right bundle branch block. Left anterior fascicular block. Telemetry personally reviewed. He had approximately 7 seconds of sinus bradycardia in the low 30s overnight. Otherwise, sinus with PVCs. No arrhythmia. ASSESSMENT AND PLAN: 1. Acute systolic congestive heart failure: It does not appear as though he has had heart failure issues in the past except for potentially one transient episode years ago. Low sodium diet, less than 2000 mg daily discussed and recommended. Check daily weights and strict I's and O's. Continue IV diuretic. Goal I's and O's negative 1-2 liters per day over the next 24 hours. Continue beta giles. TSH ordered. 2. Ischemic cardiomyopathy: Difficult to quantitate LV systolic function. EF was approximately 35%. Would recommend optimization of medications and repeat echo. If echocardiogram does not demonstrate improvement, would consider ICD for primary prevention. Continue metoprolol succinate at current dose. Start lisinopril. Consider Entresto in place of MAIKOL inhibitor if affordable. 3. Hypertension: MAIKOL inhibitor initiated today as noted above. Titrate medications as appropriate. 4. Coronary artery disease status post CABG x2: No angina. There is a concern for aspirin allergy; however, it is not known if he is truly allergic to aspirin. Recommend high intensity statin therapy. He is agreeable to try statins. He does not recall trying statin therapy in the past. Therefore, atorvastatin 40 mg once daily will be initiated. Continue beta giles. 5. Tobacco abuse: Recommended that he stop smoking. 6. Disposition: Continue diuresis and titration of medications as above. He apparently does have a history of orthostatic hypotension and therefore, we will titrate medications, assess for orthostatic symptoms. We will continue to follow. Thank you for allowing me to participate in care of Mr. Gallego. DON
--- NOTE | 2017-01-21 13:12 | Hospitalist Progress Note ---
Hospitalist Progress Note Date of Service Jan 21, 2017. (Ana Rosa Sanford PA-C) Subjective Pt evaluation today including: conversation w/ patient, physical exam, chart review, lab review, review of studies, review of inpatient medication list Patient seen and evaluated. Diuresed for - 2.2 L. Reporting improvement in respiratory status and legs overnight. Still requiring supplemental O2 and will wean as tolerated. Looks more comfortable respiratory diaz compared to yesterday. Troponins are trending down and likely demand ischemia. Patient verbalizes no other complaints. Constitutional: No fever, No chills Respiratory: + cough, + sputum, + dyspnea on exertion, No wheezing, No dyspnea at rest Abdomen: No pain, No nausea, No vomiting Male : No dysuria Heme: No abnormal bleeding/bruising Skin: No rash (Ana Rosa Sanford PA-C) Medications Current Inpatient Medications Medications (Trade) Dose Ordered Sig/Marni Route Start Time Stop Time Status Last Admin Dose Admin Heparin Sodium (Porcine) (Heparin Sq 5000 Unit/0.5ml) 5,000 unit Q8 SQ 01/20/17 22:00 02/19/17 21:59 01/21/17 06:24 5,000 UNIT Acetaminophen (Tylenol Tab) 650 mg Q4H PRN PO 01/20/17 18:45 02/19/17 18:44 Al Hydrox/Mg Hydrox/Simethicone (Maalox Max Susp) 15 ml Q4H PRN PO 01/20/17 18:45 02/19/17 18:44 Magnesium Hydroxide (Milk Of Magnesia Susp) 30 ml Q12H PRN PO 01/20/17 18:45 02/19/17 18:44 Ondansetron HCl (Zofran Inj) 4 mg Q6H PRN IV 01/20/17 18:45 02/19/17 18:44 Polyethylene (Miralax Powder Packet) 17 gm DAILY PRN PO 01/20/17 18:45 02/19/17 18:44 Albuterol/ Ipratropium (Duoneb) 3 ml Q6R NEB 01/20/17 21:00 02/19/17 20:59 01/21/17 02:57 3 ML Salmeterol Xinafoate/ Fluticasone (Advair Diskus 250/50 Inh) 1 puff BID INH 01/20/17 21:00 02/19/17 20:59 01/21/17 07:34 1 PUFF Metoprolol Succinate (Toprol Xl Tab) 100 mg DAILY PO 01/21/17 09:00 02/20/17 08:59 01/21/17 07:34 100 MG Furosemide 40 mg/ Syringe 4 ml @ 4 mls/min DAILY IV 01/21/17 09:00 02/20/17 08:59 01/21/17 07:46 4 MLS/MIN Albuterol/ Ipratropium (Duoneb) 3 ml Q2H PRN INH 01/20/17 19:00 02/19/17 18:59 Prednisone (PredniSONE TAB) 60 mg DAILY PO 01/21/17 09:00 02/20/17 08:59 01/21/17 07:35 60 MG Doxycycline Hyclate (Vibramycin Cap) 100 mg BID PO 01/20/17 21:00 01/27/17 20:59 01/21/17 07:35 100 MG Guaifenesin (Mucinex Contr Rel Tab) 600 mg Q12 PO 01/21/17 09:00 02/20/17 08:59 01/21/17 07:35 600 MG Lisinopril (Zestril Tab) 5 mg QAM PO 01/22/17 09:00 02/21/17 08:59 Atorvastatin Calcium (Lipitor Tab) 40 mg HS PO 01/21/17 21:00 02/20/17 20:59 (Ana Rosa Sanford, LANAC) Objective Vital Signs Date Time Temp Pulse Resp B/P (MAP) Pulse Ox O2 Delivery O2 Flow Rate FiO2 01/21/17 12:00 95 Nasal Cannula 2.0 01/21/17 11:41 36.4 97 20 187/122 (143) 91 Room Air 01/21/17 08:00 95 Nasal Cannula 2.0 01/21/17 07:46 36.2 86 22 199/143 (161) 95 Nasal Cannula 2.0 01/21/17 04:00 98 Room Air 2.0 Nasal Cannula 01/21/17 03:30 36.9 64 16 155/79 (104) 94 01/21/17 02:59 62 16 93 Nasal Cannula 1.5 01/21/17 00:00 98 Room Air 2.0 Nasal Cannula 01/20/17 23:43 36.4 78 18 143/77 (99) 95 2.0 01/20/17 20:47 36.5 70 18 166/95 98 Room Air 01/20/17 20:25 82 20 94 Room Air 01/20/17 20:08 75 22 157/110 95 01/20/17 18:28 68 01/20/17 18:06 65 20 164/101 95 Nasal Cannula 1.0 01/20/17 16:35 62 20 179/120 96 Nasal Cannula 1.0 01/20/17 15:17 61 20 142/87 96 Nasal Cannula 1.0 01/20/17 14:27 62 01/20/17 14:20 63 22 137/99 94 Room Air 01/20/17 14:20 94 Room Air 01/20/17 13:32 36.7 65 26 180/96 91 Room Air (Ana Rosa Sanford, PA-C) Physical Exam General Appearance: WD/WN, no apparent distress Eyes: sclerae normal ENT: hearing grossly normal Neck: supple, no JVD, trachea midline Respiratory/Chest: no respiratory distress, no accessory muscle use, + decreased breath sounds (diminished at bases with ) Cardiovascular: regular rate, rhythm, no gallop, no murmur Abdomen: normal bowel sounds, non tender, soft Extremities: + pertinent finding (chronic venous stasis findings with 2+ pitting edema b/l) Neurologic/Psychiatric: alert Skin: normal color, warm/dry (Ana Rosa Sanford, PA-C) Laboratory Results Last 24 Hours Test 01/20/17 14:08 01/20/17 14:20 01/20/17 16:30 01/20/17 21:07 White Blood Count 9.59 K/uL Red Blood Count 4.94 M/uL Hemoglobin 15.3 g/dL Hematocrit 44.6 % Mean Corpuscular Volume 90.3 fL Mean Corpuscular Hemoglobin 31.0 pg Mean Corpuscular Hemoglobin Concent 34.3 g/dl Platelet Count 216 K/uL Mean Platelet Volume 10.1 fL Neutrophils (%) (Auto) 83.8 % Lymphocytes (%) (Auto) 8.2 % Monocytes (%) (Auto) 6.7 % Eosinophils (%) (Auto) 0.9 % Basophils (%) (Auto) 0.3 % Neutrophils # (Auto) 8.03 K/uL Lymphocytes # (Auto) 0.79 K/uL Monocytes # (Auto) 0.64 K/uL Eosinophils # (Auto) 0.09 K/uL Basophils # (Auto) 0.03 K/uL RDW Standard Deviation 48.9 fL RDW Coefficient of Variation 14.8 % Immature Granulocyte % (Auto) 0.1 % Immature Granulocyte # (Auto) 0.01 K/uL Prothrombin Time 12.8 SECONDS Prothromb Time International Ratio 1.2 Sodium Level 139 mmol/L Potassium Level 4.1 mmol/L Chloride Level 104 mmol/L Carbon Dioxide Level 26 mmol/L Anion Gap 9.0 mmol/L Blood Urea Nitrogen 17 mg/dl Creatinine 0.97 mg/dl Est Creatinine Clear Calc Drug Dose 97.6 ml/min Estimated GFR () 91.3 Estimated GFR (Non- 78.8 BUN/Creatinine Ratio 17.3 Random Glucose 70 mg/dl Calcium Level 8.9 mg/dl Magnesium Level 2.1 mg/dl Total Bilirubin 1.1 mg/dl Aspartate Amino Transf (AST/SGOT) 23 U/L Alanine Aminotransferase (ALT/SGPT) 22 U/L Alkaline Phosphatase 103 U/L Troponin I 0.094 ng/ml 0.095 ng/ml Pro-B-Type Natriuretic Peptide 91434 pg/ml Total Protein 7.2 gm/dl Albumin 3.7 gm/dl Globulin 3.5 gm/dl Albumin/Globulin Ratio 1.1 Bedside Lactic Acid Venous 1.42 mmol/L Urine Color YELLOW Urine Appearance CLEAR Urine pH 5.5 Urine Specific [place] 1.014 Urine Protein TRACE Urine Glucose (UA) NEG Urine Ketones NEG Urine Occult Blood NEG Urine Nitrite NEG Urine Bilirubin NEG Urine Urobilinogen NEG Urine Leukocyte Esterase NEG Urine WBC (Auto) 0 /hpf Urine RBC (Auto) 0-4 /hpf Urine Hyaline Casts (Auto) 0 /lpf Urine Epithelial Cells (Auto) 0-5 /lpf Urine Bacteria (Auto) NEG Test 01/21/17 02:10 01/21/17 06:17 Troponin I 0.094 ng/ml 0.072 ng/ml White Blood Count 5.48 K/uL Red Blood Count 4.96 M/uL Hemoglobin 15.0 g/dL Hematocrit 44.6 % Mean Corpuscular Volume 89.9 fL Mean Corpuscular Hemoglobin 30.2 pg Mean Corpuscular Hemoglobin Concent 33.6 g/dl RDW Standard Deviation 48.4 fL RDW Coefficient of Variation 14.6 % Platelet Count 186 K/uL Mean Platelet Volume 10.2 fL Sodium Level 140 mmol/L Potassium Level 4.2 mmol/L Chloride Level 104 mmol/L Carbon Dioxide Level 26 mmol/L Anion Gap 10.0 mmol/L Blood Urea Nitrogen 17 mg/dl Creatinine 0.84 mg/dl Est Creatinine Clear Calc Drug Dose 107.2 ml/min Estimated GFR () 102.8 Estimated GFR (Non- 88.7 BUN/Creatinine Ratio 20.2 Random Glucose 119 mg/dl Calcium Level 8.8 mg/dl Triglycerides Level 66 mg/dl Cholesterol Level 148 mg/dl HDL Cholesterol 40 mg/dl LDL Cholesterol, Calculated 95 mg/dl VLDL Cholesterol, Calculated 13 mg/dl Cholesterol/HDL Ratio 3.7 (Ana Rosa Sanford, PA-C) Assessment and Plan Mr. Gallego is a 71 y/o male with PMHx of CAD S/P [place] and CABG (2000), COPD, and Neurocardiogenic Syncope who presents to the ED c/o progressive SOB x 1 week. Patient reports that he has had progressive CAMPO and orthopnea. Mixed Acute Systolic and Diastolic Congestive Heart Failure: IMPROVING - Echo with similar findings to previous - difficulty study but continued EF 30 % and type 1 diastolic dysfunction - Has been placed on Toprol XL for syncope episodes per his report and will continue with Toprol XL 100 mg daiy - Daily weights and I&Os - continue heart healthy diet and low Na diet - Lasix 40 mg IV daily - Consult cardiology - initiation of ACEI and atorvastatin Acute COPD Exacerbation: Mild - IMPROVING - Prednisone 60 mg po daily and taper over one week - Doxycycline 100 mg po BID - Neil MARNI and PRN - Mucinex BID Neurocardiogenic Syncope: - Toprol XL 100 mg daily DVT Prophylaxis: Heparin 5000 units SC Q8H Code Status: FULL RESUSCITATION Disposition: - Continue diuresis and monitor for new medication tolerance; possible D/C 1-[address] [facility] stay due to: multiple IV medications needed Discharge planning: home (Ana Rosa Sanford, PA-C) i personally examined pt and verified all yoo points w Yuli Sanford PAC feeling better breathing better vitals noted nad breathing unlabored acute on chronic systolic CHF - improving, diurese COPD exacerbation - improving, continue current management otherwise as above (Gaston Allen D.O.)
--- NOTE | 2017-01-21 15:26 | ECHOCARDIOGRAM REPORT ---
*NOTICE TO RECEIVING [employer] This information is strictly Confidential and protected under [place] law. [place] law prohibits you from making any further disclosure of this information unless further disclosure is expressly permitted by the written consent of the person to whom it pertains or is authorized by law. A general authorization for the release of medical or other information is not sufficient for this purpose. Hospital accepts no responsibility if the information is made available to any other person, INCLUDING THE PATIENT. Interpretation Summary * Name: ADRIA FERRERA Study Date: 01/21/2017 07:02 AM BP: 155/79 mmHg * Patient Location: .2T\S\S229\S\1 HR: 64 * : 1945 (M/d/yyy) Gender: Male Height: 72 in * Age: 71 yrs Ethnicity: [place] Weight: 279 lb * Ordering Physician: Ana Rosa Sanford * Referring Physician: Mary Kate Mireles * Performed By: Latoya Sofia RDCS * * Reason For Study: Congestive heart failure * BSA: 2.5 m2 * -- Conclusions -- * 1. Left ventricle is not well visualized. Left ventricle appears moderately dilated with moderately to severely reduced systolic function. Estimated EF 35% (but poor image quality). Akinesis of apex, distal anterior, distal lateral, distal septal, and distal inferior wall segments. Otherwise, global hypokinesis. Type I diastolic dysfunction. * 2. Moderate to severe biatrial dilation. * 3. No significant valvular abnormalities visualized, but valves were not well seen. * 4. Technically difficult study with poor image quality. Image quality enhanced somewhat with IV Definity. * 5. Similar findings compared to prior study on 05/22/2009. Procedure Details * A complete two-dimensional transthoracic echocardiogram was performed (2D, M-mode, Doppler and color flow Doppler). * The study was technically limited. * The study was technically difficult. * Limited views were obtained. * There were technical limitations due to patient'sPoor acoustic windows secondary to severe lung disease. * A contrast injection of Definity was performed to improve assessment of LV function. * Contrast was injected into an intravenous site in the left arm. * One vial of Definity ultrasound contrast was diluted in normal saline to a total volume of 10 ml. A total of '3' ml of solution was administered during imaging. * Lot # [id number] of Definity utilized for procedure. * Expiration date MAR 13. * The attending nurse who injected the contrast agent was Leonard Graves RN. Left Ventricle * Left ventricle is not well visualized. Left ventricle appears moderately dilated with moderately to severely reduced systolic function. Estimated EF 35% (but poor image quality). Akinesis of apex, distal anterior, distal lateral, distal septal, and distal inferior wall segments. Otherwise, global hypokinesis. Type I diastolic dysfunction. Right Ventricle * The right ventricle is not well visualized. Atria * Moderate to severe left atrial dilation. * The right atrium is moderate to severely dilated. Mitral Valve * The mitral valve is grossly normal. * There is mild mitral annular calcification. * There is no mitral valve stenosis. * Significant mitral regurgitation is absent. Tricuspid Valve * The tricuspid valve is not well visualized. Aortic Valve * The aortic valve is not well visualized. * No hemodynamically significant valvular aortic stenosis. * There is no significant aortic regurgitation. Pulmonic Valve * The pulmonic valve is not well visualized. Great Vessels * The aortic root is not well visualized. Pericardium/Pleural * There is no pericardial effusion. Great Vessels * IVC not well visualized. Left Ventricular Diastolic Function * Grade I diastolic dysfunction, (abnormal relaxation pattern). MMode 2D Measurements and Calculations LVIDd 6.4 cm EDV(Teich) 205.4 ml EDV(cubed) 256.9 ml LVAd ap4 35.0 cm\S\2 LVLd ap4 8.6 cm EDV(MOD-sp4) 120.1 ml EDV(sp4-el) 121.5 ml LVAs ap4 27.8 cm\S\2 LVLs ap4 8.2 cm ESV(MOD-sp4) 76.5 ml ESV(sp4-el) 79.8 ml EF(MOD-sp4) 36.3 % EF(sp4-el) 34.3 % SV(MOD-sp4) 43.5 ml SI(MOD-sp4) 17.7 ml/m\S\2 SV(sp4-el) 41.7 ml SI(sp4-el) 17.0 ml/m\S\2 Doppler Measurements and Calculations MV E max jesse 76.2 cm/sec MV A max jesse 107.2 cm/sec MV E/A 0.71 MV dec time 0.12 sec Ao V2 max 103.9 cm/sec Ao max PG 4.3 mmHg Ao max PG (full) 2.1 mmHg LV V1 max PG 2.2 mmHg LV V1 max 74.2 cm/sec
[2017-01-21] MEDS: ATORVASTATIN 40 MG TAB PO SCH (20:54)
[2017-01-22] VITALS (13 sets, daily range): BP systolic 120–155; BP diastolic 71–80; PULSE 50–91; TEMP 36.5–36.8; O2SAT 91–98
[2017-01-22] MEDS: ALBUT/IPRATROP 3MG/0.5MG NEB 3 ML VIAL NEB SCH ×4 (02:20→19:19)
[2017-01-22] MEDS: HEPARIN SOD 5000 UNIT/0.5 ML CARP SQ SCH ×3 (05:59→21:32)
[2017-01-22 06:35] LABS: MEAN CELL VOLUME 89.5 fL (80-100); MEAN CORPUSCULAR HEMOGLOBIN 29.8 pg (25-34); MEAN CORPUSCULAR HGB CONC 33.3 g/dl (32-36); MEAN PLATELET VOLUME 9.8 fL (7.4-10.4); PLATELET COUNT 172 K/uL (130-400); RED BLOOD COUNT 4.47 M/uL (4.7-6.1); WHITE BLOOD COUNT 9.05 K/uL (4.8-10.8)
[2017-01-22 07:09] LABS: CALCIUM 8.4 mg/dl (8.5-10.1); CREATININE 0.83 mg/dl (0.60-1.40); POTASSIUM 3.5 mmol/L (3.5-5.1)
[2017-01-22] MEDS: GUAIFENESIN 600 MG TABCR PO SCH ×2 (07:34→21:31)
[2017-01-22] MEDS: DOXYCYCLINE HYCLATE 100 MG CAP PO SCH ×2 (07:34→21:31)
[2017-01-22] MEDS: METOPROLOL SUCC 50MG EXT REL TAB PO SCH (07:35)
[2017-01-22] MEDS: FLUTICASONE/SALMETEROL 250/50 (ADVAIR) 14 PUFF/1 INHALER INH SCH ×2 (07:35→21:31)
[2017-01-22] MEDS: LISINOPRIL 5 MG TAB PO SCH (07:35)
[2017-01-22] MEDS: FUROSEMIDE INJ 40 MG in SYRINGE 0 ML IV SCH (07:54)
[2017-01-22] MEDS: POTASSIUM CHLORIDE 20 MEQ TABCR PO SCH (09:08)
--- NOTE | 2017-01-22 09:24 | Hospitalist Progress Note ---
Hospitalist Progress Note Date of Service Jan 22, 2017. (Ana Rosa Sanford PA-C) Subjective Pt evaluation today including: conversation w/ patient, physical exam, chart review, lab review, review of studies, review of inpatient medication list Patient seen and evaluated. Had 15 beat run of VT x 2 overnight. Reports he does not recall any symptoms when these occurred and believes he was asleep. He is currently off supplemental oxygen and feeling marked improvement in respiratory status. He has diuresed -4.6 L. Discussed with cardiology about possible need for ICD and increase in medications. Patient had some questions about the added medications and explained the reasoning for them and understands. He reports no further issues at this time. Constitutional: No fever, No chills Respiratory: + cough, + sputum, + dyspnea on exertion, No dyspnea at rest Cardiovascular: No chest pain, No palpitations Abdomen: No pain, No nausea, No vomiting Male : No dysuria Heme: No abnormal bleeding/bruising (Ana Rosa Sanford PA-C) Medications Current Inpatient Medications Medications (Trade) Dose Ordered Sig/Marni Route Start Time Stop Time Status Last Admin Dose Admin Heparin Sodium (Porcine) (Heparin Sq 5000 Unit/0.5ml) 5,000 unit Q8 SQ 01/20/17 22:00 02/19/17 21:59 01/22/17 05:59 5,000 UNIT Acetaminophen (Tylenol Tab) 650 mg Q4H PRN PO 01/20/17 18:45 02/19/17 18:44 Al Hydrox/Mg Hydrox/Simethicone (Maalox Max Susp) 15 ml Q4H PRN PO 01/20/17 18:45 02/19/17 18:44 Magnesium Hydroxide (Milk Of Magnesia Susp) 30 ml Q12H PRN PO 01/20/17 18:45 02/19/17 18:44 Ondansetron HCl (Zofran Inj) 4 mg Q6H PRN IV 01/20/17 18:45 02/19/17 18:44 Polyethylene (Miralax Powder Packet) 17 gm DAILY PRN PO 01/20/17 18:45 02/19/17 18:44 Albuterol/ Ipratropium (Duoneb) 3 ml Q6R NEB 01/20/17 21:00 02/19/17 20:59 01/22/17 07:12 3 ML Salmeterol Xinafoate/ Fluticasone (Advair Diskus 250/50 Inh) 1 puff BID INH 01/20/17 21:00 02/19/17 20:59 01/22/17 07:35 1 PUFF Furosemide 40 mg/ Syringe 4 ml @ 4 mls/min DAILY IV 01/21/17 09:00 02/20/17 08:59 01/22/17 07:54 4 MLS/MIN Albuterol/ Ipratropium (Duoneb) 3 ml Q2H PRN INH 01/20/17 19:00 02/19/17 18:59 Prednisone (PredniSONE TAB) 60 mg DAILY PO 01/21/17 09:00 02/20/17 08:59 01/22/17 07:35 60 MG Doxycycline Hyclate (Vibramycin Cap) 100 mg BID PO 01/20/17 21:00 01/27/17 20:59 01/22/17 07:34 100 MG Guaifenesin (Mucinex Contr Rel Tab) 600 mg Q12 PO 01/21/17 09:00 02/20/17 08:59 01/22/17 07:34 600 MG Lisinopril (Zestril Tab) 5 mg QAM PO 01/22/17 09:00 02/21/17 08:59 01/22/17 07:35 5 MG Atorvastatin Calcium (Lipitor Tab) 40 mg HS PO 01/21/17 21:00 02/20/17 20:59 01/21/17 20:54 40 MG Potassium Chloride (Klor-Con Tab) 20 meq QAM PO 01/22/17 09:00 02/21/17 08:59 01/22/17 09:08 20 MEQ Metoprolol Succinate (Toprol Xl Tab) 150 mg DAILY PO 01/23/17 09:00 02/20/17 08:59 (Ana Rosa Sanford, PAAmosC) Objective Vital Signs Date Time Temp Pulse Resp B/P (MAP) Pulse Ox O2 Delivery O2 Flow Rate FiO2 01/22/17 08:00 95 Nasal Cannula 2.0 01/22/17 07:41 36.5 91 22 155/77 (103) 97 Nasal Cannula 2.0 01/22/17 07:16 75 16 98 Nasal Cannula 2.0 01/22/17 05:12 36.5 50 18 129/71 (90) 96 Nasal Cannula 2.0 01/22/17 04:00 Nasal Cannula 2.0 01/22/17 02:20 63 16 93 Nasal Cannula 2.0 01/22/17 00:00 Nasal Cannula 2.0 01/21/17 23:08 36.5 45 20 144/89 (107) 97 Nasal Cannula 2.0 01/21/17 20:13 36.5 77 20 147/86 (106) 94 Nasal Cannula 2.0 01/21/17 20:00 Room Air 2.0 Nasal Cannula 01/21/17 19:26 72 16 94 Nasal Cannula 2.0 01/21/17 16:00 95 Nasal Cannula 2.0 01/21/17 15:22 36.6 72 20 153/96 (115) 96 Nasal Cannula 2.0 01/21/17 14:27 86 16 96 Nasal Cannula 2.0 01/21/17 12:00 95 Nasal Cannula 2.0 01/21/17 11:41 36.4 97 20 187/122 (143) 91 Room Air (Ana Rosa Sanford, PA-C) Physical Exam General Appearance: WD/WN, no apparent distress Neck: supple, no JVD, trachea midline Respiratory/Chest: no respiratory distress, no accessory muscle use, + crackles (bases bilat) Cardiovascular: regular rate, rhythm, no gallop, no murmur Abdomen: normal bowel sounds, non tender, soft Extremities: + swelling (bilateral lower extremity edema) Neurologic/Psychiatric: alert Skin: normal color (Ana Rosa aSnford, PA-C) Laboratory Results Last 24 Hours Test 01/21/17 16:19 01/22/17 06:22 Bedside Glucose 130 mg/dl White Blood Count 9.05 K/uL Red Blood Count 4.47 M/uL Hemoglobin 13.3 g/dL Hematocrit 40.0 % Mean Corpuscular Volume 89.5 fL Mean Corpuscular Hemoglobin 29.8 pg Mean Corpuscular Hemoglobin Concent 33.3 g/dl RDW Standard Deviation 48.3 fL RDW Coefficient of Variation 14.8 % Platelet Count 172 K/uL Mean Platelet Volume 9.8 fL Sodium Level 138 mmol/L Potassium Level 3.5 mmol/L Chloride Level 100 mmol/L Carbon Dioxide Level 32 mmol/L Anion Gap 6.0 mmol/L Blood Urea Nitrogen 20 mg/dl Creatinine 0.83 mg/dl Est Creatinine Clear Calc Drug Dose 108.0 ml/min Estimated GFR () 103.3 Estimated GFR (Non- 89.2 BUN/Creatinine Ratio 24.0 Random Glucose 107 mg/dl Calcium Level 8.4 mg/dl (Ana Rosa Sanford, PA-C) Assessment and Plan Mr. Gallego is a 71 y/o male with PMHx of CAD S/P OR and CABG (2000), COPD, and Neurocardiogenic Syncope who presents to the ED c/o progressive SOB x 1 week. Patient reports that he has had progressive CAMPO and orthopnea. Mixed Acute Systolic and Diastolic Congestive Heart Failure/Ischemic Cardiomyopathy/CAD S/P OR and CABG: IMPROVING - Echo with similar findings to previous - difficulty study but continued EF 30 % and type 1 diastolic dysfunction - Toprol XL 150 mg daily (increased 01/22) - Daily weights and I&Os - continue heart healthy diet and low Na diet - Lasix 40 mg IV daily - diuresed negative 4.6 L - continue to maintain 1-2 L diureses/day - Cardiology following - discussed with Dr. Strange - increased Metoprolol and continue ACEI and statin Acute COPD Exacerbation: Mild - IMPROVING - Prednisone 40 mg daily with taper - Doxycycline 100 mg po BID - Duonebs MARNI and PRN - Mucinex BID Non-Sustained Ventricular Tachycardia: - Patient unaware of episodes and believes he was sleeping when it happened - Continue to monitor on tele - may need ICD placement Neurocardiogenic Syncope: - Toprol XL 150 mg daily DVT Prophylaxis: Heparin 5000 units SC Q8H Code Status: FULL RESUSCITATION Disposition: - Continue diuresis of 1-2 L/day and possible need for ICD Continued [facility] stay due to: multiple IV medications needed Discharge planning: home (Ana Rosa Sanford, PA-C) i personally examined pt and verified all yoo points w Yuli Sanford PAC feeling better but still tight cough but otherwise breathing improved vitals noted nad breathing unlabored CHF exac - improving, as above COPD exac - improving, as above vtach - with cardiomyopathy, concerning - cardiology to continue to follow for ? ICD DVT proph - heparin SQ (Gaston Allen D.O.)
[2017-01-22] MEDS ORDERED: METOPROLOL SUCC 50MG EXT REL TAB PO STA (10:26)
--- NOTE | 2017-01-22 11:02 | CARDIOLOGY PROGRESS NOTE ---
DATE: 01/22/2017 TIME: 10:32 a.m. SUBJECTIVE: Mr. Gallego states that his breathing is better but not yet back to baseline. He did not try to lay flat in bed. He denies chest pain, syncope, near syncope, palpitations. He was asymptomatic during 2 episodes of ventricular tachycardia, this morning. He had 2 separate 15-beat runs earlier this morning. OBJECTIVE: VITAL SIGNS: Temperature 36.5 degrees, heart rate 91 beats per minute, respiration rate 22, blood pressure 155/77 mmHg, oxygen saturation 97% on 2 liters per nasal cannula. I's and O's negative 2.5 liters yesterday. Weight is 117.6 kg, down from admission rate of 119.2 kg. GENERAL: No acute distress. He is alert and oriented x3. NECK: Thick neck, no appreciable JVD. CARDIAC: No ventricular heave. Regular, normal S1, S2. No audible murmurs, rubs or gallops. LUNGS: Decreased breath sounds throughout with some expiratory wheezing and rales at bilateral bases. ABDOMEN: Soft, nontender, nondistended. Normoactive bowel sounds. EXTREMITIES: 1+ bilateral lower extremity edema to the knees. No cyanosis. PSYCHIATRIC: Affect appears appropriate. MEDICATIONS: Include atorvastatin 40 mg at bedtime, Lasix 40 mg IV daily, lisinopril 5 mg daily, metoprolol succinate 100 mg daily, potassium chloride 20 mEq daily, prednisone 60 mg daily, and Advair Diskus 1 puff b.i.d. TELEMETRY: Personally reviewed. Sinus rhythm with ectopy. Two separate episodes of ventricular tachycardia of 15 beats each. LABORATORY DATA: Sodium 138, potassium 3.5, BUN 20, creatinine 0.83. White blood cell count 9.05, hemoglobin 13.3, platelets 172. ASSESSMENT AND PLAN: 1. Acute systolic congestive heart failure: Still hypervolemic on exam. Continue Lasix. Goal negative fluid balance 1-2 liters today. If needs additional 40 mg of Lasix to reach that goal, this can be given by the hospitalist service later today. This was communicated with Ana Rosa Sanford of the primary hospitalist service. Low sodium diet, strict I's and O's and daily weights. TSH was unremarkable at 0.826. 2. Ischemic cardiomyopathy: Consider implantable cardioverter defibrillator. Continue optimization of medications. Will increase metoprolol succinate to 150 mg daily, given ventricular his tachycardia. Lisinopril was initiated yesterday and could be further titrated. Consider Entresto as an outpatient, if patient is agreeable and if the medication is reasonably affordable for him. 3. Hypertension: Metoprolol succinate increased. MAIKOL inhibitor started yesterday. 4. Coronary artery disease status post coronary artery bypass grafting x2: No angina. Aspirin is listed as an allergy; however, it is not clear if he is truly allergic to aspirin. This is according to him that he may not be truly allergic. This can be further considered by his primary media coordinator, Dr. Skelton when he returns tomorrow. Continue high intensity statin therapy which was started yesterday. Titrating beta giles as above. 5. Tobacco abuse: Stop smoking. 6. Ventricular tachycardia: Increasing beta giles to metoprolol succinate 150 mg once daily. This can be further titrated if tolerated. 7. Disposition: Dr. Skelton will return tomorrow and continue to follow from a cardiology standpoint. Plan of care discussed with Ana Rosa Sanford of the hospitalist service.
[2017-01-22] MEDS: ATORVASTATIN 40 MG TAB PO SCH (21:31)
[2017-01-23] VITALS (10 sets, daily range): BP systolic 121–157; BP diastolic 67–93; PULSE 50–69; TEMP 36.5–37; O2SAT 92–95
[2017-01-23] MEDS: ALBUT/IPRATROP 3MG/0.5MG NEB 3 ML VIAL NEB SCH ×4 (02:08→19:25)
[2017-01-23 05:41] LABS: HEMATOCRIT 40.8 % (42-52); MEAN CELL VOLUME 89.7 fL (80-100); MEAN CORPUSCULAR HEMOGLOBIN 29.7 pg (25-34); MEAN CORPUSCULAR HGB CONC 33.1 g/dl (32-36); MEAN PLATELET VOLUME 10.4 fL (7.4-10.4); PLATELET COUNT 194 K/uL (130-400); RED BLOOD COUNT 4.55 M/uL (4.7-6.1); WHITE BLOOD COUNT 8.93 K/uL (4.8-10.8)
[2017-01-23] MEDS: HEPARIN SOD 5000 UNIT/0.5 ML CARP SQ SCH ×3 (05:44→21:24)
[2017-01-23 06:00] LABS: BUN/CREATININE RATIO 24.3 (10-20); CALCIUM 8.5 mg/dl (8.5-10.1); CREATININE 0.92 mg/dl (0.60-1.40); POTASSIUM 3.9 mmol/L (3.5-5.1)
[2017-01-23] MEDS: POTASSIUM CHLORIDE 20 MEQ TABCR PO SCH (08:05)
[2017-01-23] MEDS: FLUTICASONE/SALMETEROL 250/50 (ADVAIR) 14 PUFF/1 INHALER INH SCH ×2 (08:05→21:21)
[2017-01-23] MEDS: LISINOPRIL 5 MG TAB PO SCH (08:06)
[2017-01-23] MEDS: METOPROLOL SUCC 50MG EXT REL TAB PO SCH (08:06)
[2017-01-23] MEDS: GUAIFENESIN 600 MG TABCR PO SCH ×2 (08:06→21:21)
[2017-01-23] MEDS: FUROSEMIDE INJ 40 MG in SYRINGE 0 ML IV SCH (08:07)
[2017-01-23] MEDS: DOXYCYCLINE HYCLATE 100 MG CAP PO SCH ×2 (08:07→21:21)
--- NOTE | 2017-01-23 09:27 | CARDIOLOGY PROGRESS NOTE ---
DATE: 01/23/2017 SUBJECTIVE: Mr. Gallego is resting comfortably in bed without complaints of chest pain or dyspnea. He feels that his edema is improving. He has been ambulatory without complaints. OBJECTIVE: VITAL SIGNS: Blood pressure 134/79 with a regular pulse of 55. Respiratory rate is 18. The patient is afebrile at 36.5 degrees Celsius. Saturations 93% on room air. Weight is 118 kg, down 8.7 kilograms. NECK: Supple with full carotid upstrokes. No obvious bruits. Jugular venous pressure is flat at 90 degrees. No thyromegaly. CARDIOVASCULAR: Reveals a regular rhythm with distant heart sounds. No obvious murmurs. LUNGS: Note decreased breath sounds at the bases but no rales, rhonchi, or wheezes. ABDOMEN: Obese without bruits. EXTREMITIES: Reveal 1+ pitting edema to the mid thighs bilaterally. LABORATORY DATA: CBC notes hemoglobin of 13.5, hematocrit 40.8, white count 8.9, platelet count 194,000. Electrolytes note a sodium of 139, potassium 3.9, chloride 101, bicarb 31, BUN 22, creatinine 0.9, glucose 103. satellite project site monitor notes PVCs and nonsustained ventricular tachycardia. IMPRESSION AND PLAN: 1. Acute on chronic systolic congestive heart failure -- patient continues to diurese. I suspect he is still significantly above his "dry" weight. Would continue intravenous furosemide. Tolerating increased dose of beta giles and his lisinopril. 2. Ischemic cardiomyopathy -- with an ejection fraction of 35% and a QRS duration shinto of 150 milliseconds. I have discussed the possibility of an implantable device; however, the patient refuses to proceed due to his insurance status. He may consider this in a later date. 3. Hypertension -- controlled. 4. Coronary artery disease -- status post coronary artery bypass graft x2. Apparently ALLERGIC TO ASPIRIN. May consider desensitization as an outpatient. 5. Ventricular dysrhythmia -- beta giles recently increased. We will continue to follow. 6. Tobacco abuse. MTDD
[2017-01-23] MEDS ORDERED: FUROSEMIDE INJ 40 MG in SYRINGE 0 ML IV ONE ×2 (12:30→17:00)
--- NOTE | 2017-01-23 14:04 | Hospitalist Progress Note ---
Hospitalist Progress Note Date of Service Jan 23, 2017. (Ana Rosa Sanford PA-C) Subjective Pt evaluation today including: conversation w/ patient, physical exam, chart review, lab review, review of studies, review of inpatient medication list Patient seen and evaluated. No acute events overnight. Had 3 beat PVC overnight. Continues to be NSR with PACs and PVCs. Bradycardic overnight. Reporting breathing at rest is almost to baseline but states he hasn't been moving much to assess CAMPO. Continues to adequately oxygenate on RA. At this time he does not want to pursue ICD implantation. Will add an additional Lasix dose today as he had a minimal negative balance. He remains -4.6 L during this admission. PT evaluated patient and recommends he can return home but to place two-step. Constitutional: No fever, No chills Respiratory: + cough, + sputum (intermittent but still difficulty expelling) , + wheezing (reports almost always has some wheezing), + dyspnea at rest ( [place] - not at baseline) Cardiovascular: No chest pain, No palpitations Abdomen: No pain, No nausea, No vomiting Heme: No abnormal bleeding/bruising (Ana Rosa Sanford PA-C) Medications Current Inpatient Medications Medications (Trade) Dose Ordered Sig/Marni Route Start Time Stop Time Status Last Admin Dose Admin Heparin Sodium (Porcine) (Heparin Sq 5000 Unit/0.5ml) 5,000 unit Q8 SQ 01/20/17 22:00 02/19/17 21:59 01/23/17 05:44 5,000 UNIT Acetaminophen (Tylenol Tab) 650 mg Q4H PRN PO 01/20/17 18:45 02/19/17 18:44 Al Hydrox/Mg Hydrox/Simethicone (Maalox Max Susp) 15 ml Q4H PRN PO 01/20/17 18:45 02/19/17 18:44 Magnesium Hydroxide (Milk Of Magnesia Susp) 30 ml Q12H PRN PO 01/20/17 18:45 02/19/17 18:44 Ondansetron HCl (Zofran Inj) 4 mg Q6H PRN IV 01/20/17 18:45 02/19/17 18:44 Polyethylene (Miralax Powder Packet) 17 gm DAILY PRN PO 01/20/17 18:45 02/19/17 18:44 Albuterol/ Ipratropium (Duoneb) 3 ml Q6R NEB 01/20/17 21:00 02/19/17 20:59 01/23/17 07:03 3 ML Salmeterol Xinafoate/ Fluticasone (Advair Diskus 250/50 Inh) 1 puff BID INH 01/20/17 21:00 02/19/17 20:59 01/23/17 08:05 1 PUFF Furosemide 40 mg/ Syringe 4 ml @ 4 mls/min DAILY IV 01/21/17 09:00 02/20/17 08:59 01/23/17 08:07 4 MLS/MIN Albuterol/ Ipratropium (Duoneb) 3 ml Q2H PRN INH 01/20/17 19:00 02/19/17 18:59 Doxycycline Hyclate (Vibramycin Cap) 100 mg BID PO 01/20/17 21:00 01/27/17 20:59 01/23/17 08:07 100 MG Guaifenesin (Mucinex Contr Rel Tab) 600 mg Q12 PO 01/21/17 09:00 02/20/17 08:59 01/23/17 08:06 600 MG Lisinopril (Zestril Tab) 5 mg QAM PO 01/22/17 09:00 02/21/17 08:59 01/23/17 08:06 5 MG Atorvastatin Calcium (Lipitor Tab) 40 mg HS PO 01/21/17 21:00 02/20/17 20:59 01/22/17 21:31 40 MG Potassium Chloride (Klor-Con Tab) 20 meq QAM PO 01/22/17 09:00 02/21/17 08:59 01/23/17 08:05 20 MEQ Metoprolol Succinate (Toprol Xl Tab) 150 mg DAILY PO 01/23/17 09:00 02/20/17 08:59 01/23/17 08:06 150 MG Prednisone (PredniSONE TAB) 40 mg Taper DAILY PO 01/23/17 09:00 01/31/17 08:59 01/23/17 08:06 40 MG Furosemide 40 mg/ Syringe 4 ml @ 4 mls/min 1700 ONCE IV 01/23/17 17:00 01/23/17 17:01 (Ana Rosa Sanford, LANAC) Objective Vital Signs Date Time Temp Pulse Resp B/P (MAP) Pulse Ox O2 Delivery O2 Flow Rate FiO2 01/23/17 12:00 Room Air 01/23/17 11:24 36.5 50 19 143/83 (103) 94 Room Air 01/23/17 08:00 Room Air 01/23/17 07:35 36.5 54 19 134/79 (97) 93 Room Air 01/23/17 07:07 59 16 93 Room Air 01/23/17 04:30 37.0 69 20 141/78 (99) 95 Room Air 01/23/17 04:00 Room Air 01/23/17 02:08 61 16 95 Room Air 01/23/17 00:02 Room Air 01/22/17 23:15 36.6 59 18 135/80 (98) 93 Room Air 01/22/17 20:00 Room Air 01/22/17 19:35 36.8 57 20 139/80 (99) 94 Room Air 01/22/17 19:21 59 16 94 Room Air 01/22/17 16:18 36.8 63 20 135/78 (97) 91 Room Air 01/22/17 16:00 95 Nasal Cannula 2.0 01/22/17 14:08 68 16 93 Room Air (Ana Rosa Sanford PA-C) Physical Exam General Appearance: WD/WN, no apparent distress Eyes: sclerae normal Neck: supple, no JVD, trachea midline Respiratory/Chest: no respiratory distress, no accessory muscle use, + crackles (bases b/l), + wheezing (b/l from bases to mid-lung) Cardiovascular: regular rate, rhythm, no gallop, no murmur Abdomen: normal bowel sounds, non tender, soft Extremities: + swelling (2+ pitting edema b/l with chronic venous stasis) Skin: normal color, warm/dry (Ana Rosa Sanford PA-C) Laboratory Results Last 24 Hours Test 01/23/17 05:13 White Blood Count 8.93 K/uL Red Blood Count 4.55 M/uL Hemoglobin 13.5 g/dL Hematocrit 40.8 % Mean Corpuscular Volume 89.7 fL Mean Corpuscular Hemoglobin 29.7 pg Mean Corpuscular Hemoglobin Concent 33.1 g/dl RDW Standard Deviation 47.9 fL RDW Coefficient of Variation 14.7 % Platelet Count 194 K/uL Mean Platelet Volume 10.4 fL Sodium Level 139 mmol/L Potassium Level 3.9 mmol/L Chloride Level 101 mmol/L Carbon Dioxide Level 31 mmol/L Anion Gap 7.0 mmol/L Blood Urea Nitrogen 22 mg/dl Creatinine 0.92 mg/dl Est Creatinine Clear Calc Drug Dose 97.4 ml/min Estimated GFR () 97.3 Estimated GFR (Non- 84.0 BUN/Creatinine Ratio 24.3 Random Glucose 103 mg/dl Calcium Level 8.5 mg/dl (Ana Rosa Sanford PA-C) Assessment and Plan Mr. Gallego is a 71 y/o male with PMHx of CAD S/P [place] and CABG (2000), COPD, and Neurocardiogenic Syncope who presents to the ED c/o progressive SOB x 1 week. Patient reports that he has had progressive CAMPO and orthopnea. Mixed Acute Systolic and Diastolic Congestive Heart Failure/Ischemic Cardiomyopathy/CAD S/P IL and CABG: IMPROVING - Echo with similar findings to previous - difficulty study but continued EF 30 % and type 1 diastolic dysfunction - Toprol XL 150 mg daily (increased 01/22) - Daily weights and I&Os - continue heart healthy diet and low Na diet - Lasix 40 mg IV daily - diuresed negative 4.6 L - continue to maintain 1-2 L diureses/day -- Will add an additional dose Lasix this evening - continue to monitor BMP - Cardiology following - recommending continued ACEI, BB, statin; discussed ICD but patient does not want to pursue at this time Acute COPD Exacerbation: Mild - IMPROVING - Prednisone taper over the next few days - Doxycycline 100 mg po BID - Neil [facility] and PRN - Mucinex BID Non-Sustained Ventricular Tachycardia: - Initially 15 beat x 2 episodes on 01/22 - tele today with 3 beat run PVCs - Continue to monitor on tele Neurocardiogenic Syncope: - Toprol XL 150 mg daily DVT Prophylaxis: Heparin 5000 units SC Q8H Code Status: FULL RESUSCITATION Disposition: - Continued diuresis and should obtain 2-step prior to D/C Continued [facility] stay due to: multiple IV medications needed Discharge planning: home (Ana Rosa Sanford PA-C) Reviewed: Pt Seen/Exam by Me (Samantha Ash MD) History Physician Oil Dipper Supervision Note: I interviewed and examined the patient. Discussed with SHERRON Sanford and agree with findings and plan as documented in the note. Any exceptions or clarifications are listed here: This patient is a 71-year-old male with history of CAD and CABG in 2000, chronic systolic CHF, COPD, current smoker, who presents to the ER with 1 week of progressively worsening dyspnea on exertion, orthopnea, and lower extremity edema. He notes he is gained about 40 pounds in the last 9-10 months but a lot of that he thinks his fluid weight in the last week. He reports he always has a full 22 ounce water cup available for drinking when he is sitting in his chair watching TV. He also frequency the local bar couple times a week only drinking 3 beers at a sitting. He was found to be mildly hypoxic with a pulse ox of 91%, a markedly elevated proBNP of 27,000, chest x-ray with findings of CHF and small bilateral pleural effusions with cardiomegaly. He was admitted for acute on chronic systolic CHF and likely COPD exacerbation as well. Today the patient reports he still coughing up a lot of yellow sputum, breathing feels better, he remains off oxygen. We discussed the indications for and benefits versus risks of ICD placement. He seems more open to it, but would like us to check into coverage by his insurance and says we would have to discuss the procedure with his . Vital signs reviewed No acute distress, obese Regular rate and rhythm, no murmurs gallops or rubs Lungs with a few scattered expiratory wheezes and crackles at the bases bilaterally, much improved air movement compared to on admission Abdomen positive bowel sounds soft nontender nondistended obese Extremities decreased to 1+ pitting edema to the knees bilaterally 71-year-old male with history of CAD and CABG, chronic systolic CHF, COPD, and current smoker, who is here with acute on chronic systolic CHF and COPD acute exacerbation. -Continue Nebulizers, prednisone taper, doxycycline for COPD exacerbation 7 days -Continue to Diurese with IV Lasix , however is much improved overall -Follow renal function and electrolytes with diuresis -Strict I's and O's, daily weights, low sodium diet, fluid restriction- counseled patient on avoidance of excessive fluid especially with alcohol use -Strongly encouraged smoking cessation as well -Appreciate cardiology consultation -Patient considering ICD placement-would like us to inquire with his insurance about coverage -Heparin subcutaneous for DVT prophylaxis Documented By: Samantha Ash (Samantha Ash MD)
[2017-01-23] MEDS: ATORVASTATIN 40 MG TAB PO SCH (21:21)
[2017-01-24] VITALS (9 sets, daily range): BP systolic 114–157; BP diastolic 69–96; PULSE 51–68; TEMP 36.4–36.8; O2SAT 90–98
[2017-01-24] MEDS: ALBUT/IPRATROP 3MG/0.5MG NEB 3 ML VIAL NEB SCH ×4 (01:53→21:24)
[2017-01-24] MEDS: HEPARIN SOD 5000 UNIT/0.5 ML CARP SQ SCH ×3 (05:54→21:13)
[2017-01-24 07:15] LABS: BUN/CREATININE RATIO 24.3 (10-20); CALCIUM 8.6 mg/dl (8.5-10.1); POTASSIUM 4.2 mmol/L (3.5-5.1)
[2017-01-24] MEDS: POTASSIUM CHLORIDE 20 MEQ TABCR PO SCH (08:14)
[2017-01-24] MEDS: FLUTICASONE/SALMETEROL 250/50 (ADVAIR) 14 PUFF/1 INHALER INH SCH ×2 (08:14→20:25)
[2017-01-24] MEDS: GUAIFENESIN 600 MG TABCR PO SCH ×2 (08:14→20:24)
[2017-01-24] MEDS: DOXYCYCLINE HYCLATE 100 MG CAP PO SCH ×2 (08:14→20:24)
[2017-01-24] MEDS: FUROSEMIDE INJ 40 MG in SYRINGE 0 ML IV SCH (08:15)
[2017-01-24] MEDS: LISINOPRIL 5 MG TAB PO SCH (08:15)
[2017-01-24] MEDS: METOPROLOL SUCC 50MG EXT REL TAB PO SCH (08:21)
--- NOTE | 2017-01-24 09:16 | CARDIOLOGY PROGRESS NOTE ---
DATE: 01/24/2017 SUBJECTIVE: Mr. Gallego is resting comfortably in bed without complaints of chest pain or dyspnea. He has been ambulatory without difficulty. OBJECTIVE: VITAL SIGNS: Blood pressure 145/78 with a regular pulse of 60. Respiratory rate is 16. The patient is afebrile at 36.4 degrees Celsius. Saturations 96% on room air. NECK: Supple with full carotid upstrokes. No carotid bruits. Jugular venous pressure is flat at 90 degrees. There is no thyromegaly. CARDIOVASCULAR: Reveals a regular rhythm with an occasional extrasystole. Heart sounds are distant. No obvious murmurs. LUNGS: Note decreased breath sounds at the bases but no rales, rhonchi, or wheezes. ABDOMEN: Obese without bruits. EXTREMITIES: Reveal 1+ pitting edema to the thighs bilaterally. DATA: Electrolytes note a sodium of 140, potassium 4.2, chloride 99, bicarbonate 35, BUN 24, creatinine 1.0, glucose 72. cad draftsman notes frequent PVCs, but no ventricular tachycardia. IMPRESSION AND PLAN: 1. Acute on chronic systolic congestive heart failure -- continues to diurese on intravenous furosemide. He is tolerating increased dose of beta glies and also his lisinopril. 2. Ischemic cardiomyopathy -- ejection fraction of 35% and the QRS duration of 150 milliseconds. I have again discussed the possibility of an implantable device, patient refuses at this time. Would like to consider it later as an outpatient. 3. Hypertension -- controlled. 4. Coronary artery disease -- status post coronary artery bypass graft x2. May consider aspirin desensitization as an outpatient. 5. Ventricular dysrhythmia -- beta giles increased. 6. Tobacco abuse.
--- NOTE | 2017-01-24 10:06 | DIAGNOSTIC IMAGING REPORT ---
TWO VIEW CHEST CLINICAL HISTORY: Follow-up CHF. Dyspnea.. FINDINGS: PA and lateral chest radiographs are compared to study dated 01/20/2017. The patient is status post midline sternotomy. The heart is enlarged and there is atherosclerotic calcification of the thoracic aorta. The pulmonary vascular structures noncongested. Enlargement the central pulmonary vessels suggests pulmonary artery hypertension. Emphysema is suspected. There is chronic interstitial thickening. Scarring is noted in the right midlung and at the right lung base. No airspace consolidation is seen typical for pneumonia. Nodularity is question the right midlung. Trace pleural effusions are suggested on the lateral view. There is no pneumothorax. The skeletal structures are osteopenic. Degenerative change is present in the spine. IMPRESSION: 1. Cardiomegaly. Mild pulmonary vascular congestion has resolved from 01/20/2017. 2. Suspect emphysema. 3. Trace pleural effusions are identified. 4. Suspect emphysema. A nodular density is questioned in the right midlung an age related to scarring. Correlation with a chest CT is recommended to exclude underlying pulmonary lesion. Electronically signed by: Brijesh Marx M.D. 01/24/2017 10:05 AM Dictated Date/Time: 01/24/2017 9:32 AM
--- NOTE | 2017-01-24 13:58 | Progress Note ---
Subjective Date of Service: Jan 24, 2017. Subjective Pt evaluation today including: conversation w/ patient, physical exam, chart review, lab review, review of studies, review of inpatient medication list Resting comfortably in bed No chest pain or shortness of breath Tolerating IV lasix No concerns noted at this time Pt reports he will consider defibrillator as outpatient Problem List Medical Problems: (1) CHF (congestive heart failure) Status: Acute (2) Dyspnea Status: Acute (3) Elevated troponin Status: Acute (4) Tobacco abuse Status: Acute Review of Systems Constitutional: No fever, No chills, No sweats, No weight loss ENT: No hearing loss, No unusual epistaxis, No nasal symptoms, No sore throat Respiratory: No cough, No sputum, No wheezing, No shortness of breath Cardiac: + edema, No chest pain, No orthopnea, No PND Abdomen: No pain, No nausea, No vomiting, No diarrhea, No constipation Musculoskeletal: No joint pain, No muscle pain, No swelling, No calf pain Male : No dysuria, No urinary frequency, No incontinence, No slowing stream Neurologic: No memory loss, No paralysis, No weakness, No numbness/tingling Psychiatric: No depression symptoms, No anhedonism, No anxiety, No insomnia Endo: No fatigue, No excessive thirst, No excessive urination Skin: No rash, No itch Objective Vital Signs Date Time Temp Pulse Resp B/P (MAP) Pulse Ox O2 Delivery O2 Flow Rate FiO2 01/24/17 12:00 Room Air 01/24/17 11:43 36.4 53 18 114/69 (84) 94 Room Air 01/24/17 08:00 Room Air 01/24/17 07:37 54 16 96 Room Air 01/24/17 07:16 36.4 52 19 145/78 (100) 93 Room Air 01/24/17 04:00 Room Air 01/24/17 03:46 36.6 68 20 146/96 (113) 93 Room Air 01/24/17 01:53 54 16 96 Room Air 01/24/17 00:00 Room Air 93 01/23/17 23:14 36.5 54 20 157/90 (112) 93 Room Air 01/23/17 20:00 Room Air 01/23/17 19:58 36.5 52 18 121/67 (85) 94 Room Air 01/23/17 19:25 57 16 94 Room Air 01/23/17 16:00 Room Air 01/23/17 15:22 36.7 50 20 147/93 (111) 93 Room Air 01/23/17 14:08 68 16 92 Room Air Physical Exam General Appearance: WD/WN, no apparent distress Eyes: normal inspection, PERRL, EOMI, sclerae normal Neck: supple, no adenopathy, thyroid normal, no JVD Respiratory/Chest: chest non-tender, lungs clear, normal breath sounds, no respiratory distress Cardiovascular: no gallop, no JVD, no murmur Abdomen: normal bowel sounds, non tender, soft, no organomegaly Extremities: normal range of motion, non-tender, normal inspection, + pedal edema Neurologic/Psychiatric: no motor/sensory deficits, alert, normal mood/affect, oriented x 3 Laboratory Results Last 24 Hours Test 01/24/17 05:33 Sodium Level 140 mmol/L Potassium Level 4.2 mmol/L Chloride Level 99 mmol/L Carbon Dioxide Level 35 mmol/L Anion Gap 6.0 mmol/L Blood Urea Nitrogen 24 mg/dl Creatinine 1.00 mg/dl Est Creatinine Clear Calc Drug Dose 88.3 ml/min Estimated GFR () 88.0 Estimated GFR (Non- 75.9 BUN/Creatinine Ratio 24.3 Random Glucose 72 mg/dl Calcium Level 8.6 mg/dl Assessment and Plan Mr. Gallego is a 71 y/o male with PMHx of CAD S/P NC and CABG (2000), COPD, and Neurocardiogenic Syncope who presents to the ED c/o progressive SOB x 1 week. Patient reports that he has had progressive CAMPO and orthopnea. Mixed Acute Systolic and Diastolic Congestive Heart Failure/Ischemic Cardiomyopathy/CAD S/P NC and CABG: IMPROVING - Echo with similar findings to previous - difficulty study but continued EF 30 % and type 1 diastolic dysfunction - Toprol XL 150 mg daily (increased 01/22) - Daily weights and I&Os - continue heart healthy diet and low Na diet - Lasix 40 mg IV daily - can likely switch to PO dosing soon, appropriate diuresis at this time - Cardiology following - recommending continued ACEI, BB, statin; discussed ICD but patient does not want to pursue at this time - Due to severe CHF, pt will require hospital bed at home as head of bed must be elevated over 30 degrees. Acute COPD Exacerbation: Mild - Resolved - Prednisone taper over the next few days - Doxycycline 100 mg po BID x 5 days total - Duonebs BENJI and PRN - Mucinex BID Non-Sustained Ventricular Tachycardia: - Initially 15 beat x 2 episodes on 01/22 - tele today with 3 beat run PVCs - Continue to monitor on tele Neurocardiogenic Syncope: - Toprol XL 150 mg daily DVT Prophylaxis: Heparin 5000 units SC Q8H Code Status: FULL RESUSCITATION Continued [facility] stay due to: multiple IV medications needed Discharge planning: home
[2017-01-24] MEDS: ATORVASTATIN 40 MG TAB PO SCH (20:24)
[2017-01-25] VITALS (11 sets, daily range): BP systolic 119–150; BP diastolic 65–84; PULSE 49–65; TEMP 36.5–36.8; O2SAT 91–98
[2017-01-25] MEDS: ALBUT/IPRATROP 3MG/0.5MG NEB 3 ML VIAL NEB SCH ×4 (02:01→19:10)
[2017-01-25] MEDS: HEPARIN SOD 5000 UNIT/0.5 ML CARP SQ SCH ×3 (05:42→20:02)
[2017-01-25 06:43] LABS: BUN/CREATININE RATIO 24.8 (10-20); CALCIUM 8.9 mg/dl (8.5-10.1); CREATININE 0.99 mg/dl (0.60-1.40); POTASSIUM 4.3 mmol/L (3.5-5.1)
[2017-01-25] MEDS: FUROSEMIDE INJ 40 MG in SYRINGE 0 ML IV SCH (08:05)
[2017-01-25] MEDS: FLUTICASONE/SALMETEROL 250/50 (ADVAIR) 14 PUFF/1 INHALER INH SCH ×2 (08:05→20:00)
[2017-01-25] MEDS: GUAIFENESIN 600 MG TABCR PO SCH ×2 (08:06→20:00)
[2017-01-25] MEDS: METOPROLOL SUCC 50MG EXT REL TAB PO SCH (08:06)
[2017-01-25] MEDS: DOXYCYCLINE HYCLATE 100 MG CAP PO SCH ×2 (08:07→20:00)
[2017-01-25] MEDS: POTASSIUM CHLORIDE 20 MEQ TABCR PO SCH (08:08)
[2017-01-25] MEDS: LISINOPRIL 10 MG TAB PO SCH (08:08)
--- NOTE | 2017-01-25 09:44 | CARDIOLOGY PROGRESS NOTE ---
DATE: 01/25/2017 SUBJECTIVE: Mr. Gallego is resting comfortably in bed without complaints of chest pain or dyspnea. He is anxious for hospital discharge. We have again discussed an implantable device. He would like to discuss this further with his . OBJECTIVE: VITAL SIGNS: Blood pressure is 150/70 with a regular pulse of 50. Respiratory rate is 20 and the patient is afebrile at 36.7 degrees Celsius. Saturation is 93% on room air. NECK: Supple with full carotid upstrokes. There are no carotid bruits. Jugular venous pressure is flat at 90 degrees. There is no thyromegaly. CARDIOVASCULAR: Reveals a regular rhythm with occasional extrasystole. Heart sounds are distant. No obvious murmurs. LUNGS: Clear without rales, rhonchi, or wheezes. ABDOMEN: Soft and nontender without bruits. EXTREMITIES: Reveal intact radial artery pulses bilaterally. 1+ pretibial edema is noted bilaterally. LABORATORY DATA: PRP notes a sodium of 170, potassium 4.3, chloride 99, bicarb 37, BUN 25, creatinine 0.99, and glucose of 70. adobe developer notes sinus bradycardia with frequent PACs and PVCs. No runs of ventricular tachycardia. IMPRESSION AND PLAN: 1. Acute on chronic systolic congestive heart failure -- the patient converted to oral furosemide. He continues a brisk diuresis. He is tolerating increased doses of metoprolol succinate and lisinopril. 2. Ischemic cardiomyopathy -- ejection fraction of 35% with a QRS duration of 150 milliseconds. As above, he would like to discuss the possibility of an implantable device with his family. 3. Hypertension -- controlled. 4. Coronary artery disease -- status post coronary artery bypass grafting x2. May consider aspirin desensitization as an outpatient. 5. Ventricular dysrhythmia -- beta giles increased. 6. Tobacco abuse.
--- NOTE | 2017-01-25 14:53 | Progress Note ---
Subjective Date of Service: Jan 25, 2017. Subjective Pt evaluation today including: conversation w/ patient, physical exam, chart review, lab review, review of studies, review of inpatient medication list Resting comfortably in bed Tolerating diuresis No shortness of breath or chest pain Reports lower extremity swelling improved No further concerns Problem List Medical Problems: (1) CHF (congestive heart failure) Status: Acute (2) Dyspnea Status: Acute (3) Elevated troponin Status: Acute (4) Tobacco abuse Status: Acute Review of Systems Constitutional: No fever, No chills, No sweats, No weakness Eyes: No worsening of vision, No eye pain, No redness, No discharge ENT: No hearing loss, No unusual epistaxis Respiratory: No cough, No sputum, No wheezing, No shortness of breath, No dyspnea on exertion Cardiac: + edema, No chest pain, No orthopnea, No PND, No claudication Abdomen: No pain, No nausea, No vomiting, No diarrhea, No constipation Musculoskeletal: No joint pain, No muscle pain, No swelling, No calf pain Male : No dysuria, No urinary frequency, No incontinence, No slowing stream Neurologic: No memory loss, No paralysis, No weakness, No numbness/tingling Psychiatric: No depression symptoms, No anhedonism, No anxiety, No insomnia Endo: No fatigue, No excessive thirst Skin: No rash, No itch Objective Vital Signs Date Time Temp Pulse Resp B/P (MAP) Pulse Ox O2 Delivery O2 Flow Rate FiO2 01/25/17 14:19 57 16 94 Room Air 01/25/17 12:00 Room Air 01/25/17 11:29 36.8 55 20 124/73 (90) 92 Room Air 01/25/17 08:00 Room Air 01/25/17 07:49 36.7 49 20 150/69 (96) 93 Room Air 01/25/17 07:17 63 16 98 Room Air 01/25/17 04:44 36.7 53 18 147/77 (100) 94 Room Air 01/25/17 04:00 Room Air 01/25/17 02:01 58 16 95 Room Air 01/25/17 00:07 36.8 60 18 147/84 (105) 95 Room Air 01/25/17 00:01 Room Air 01/24/17 21:24 55 16 94 Room Air 01/24/17 20:00 Room Air 01/24/17 19:54 36.8 51 19 137/71 (93) 94 Room Air 01/24/17 16:00 Room Air 01/24/17 15:46 36.7 60 22 157/79 (105) 90 Room Air Physical Exam General Appearance: WD/WN, no apparent distress Eyes: normal inspection, PERRL, EOMI, sclerae normal Neck: supple, no adenopathy, thyroid normal, no JVD Respiratory/Chest: chest non-tender, normal breath sounds, no respiratory distress, + decreased breath sounds Cardiovascular: regular rate, rhythm, no gallop, no JVD, no murmur Abdomen: normal bowel sounds, non tender, soft, no organomegaly Extremities: normal range of motion, non-tender, normal inspection, no pedal edema, + pedal edema Neurologic/Psychiatric: no motor/sensory deficits, alert, normal mood/affect, oriented x 3 Skin: normal color, warm/dry, no rash Lymphatic: no adenopathy Laboratory Results Last 24 Hours Test 01/25/17 05:23 Sodium Level 140 mmol/L Potassium Level 4.3 mmol/L Chloride Level 99 mmol/L Carbon Dioxide Level 37 mmol/L Anion Gap 4.0 mmol/L Blood Urea Nitrogen 25 mg/dl Creatinine 0.99 mg/dl Est Creatinine Clear Calc Drug Dose 88.9 ml/min Estimated GFR () 89.1 Estimated GFR (Non- 76.8 BUN/Creatinine Ratio 24.8 Random Glucose 70 mg/dl Calcium Level 8.9 mg/dl Chemistry Specimen Hemolysis Assessment and Plan Mr. Gallego is a 71 y/o male with PMHx of CAD S/P IN and CABG (2000), COPD, and Neurocardiogenic Syncope who presents to the ED c/o progressive SOB x 1 week. Patient reports that he has had progressive CAMPO and orthopnea. Mixed Acute Systolic and Diastolic Congestive Heart Failure/Ischemic Cardiomyopathy/CAD S/P IN and CABG: IMPROVING - Echo with similar findings to previous - difficulty study but continued EF 30 % and type 1 diastolic dysfunction - Toprol XL 150 mg daily (increased 01/22), increased lisinopril to 10 mg PO daily - Daily weights and I&Os - continue heart healthy diet and low Na diet - Lasix 40 mg IV daily now switched to lasix 20 mg PO daily, appropriate diuresis at this time, wt 119 kg -->113 kg - Cardiology following - recommending continued ACEI, BB, statin; discussed ICD but patient does not want to pursue at this time - Due to severe CHF, pt will require hospital bed at home as head of bed must be elevated over 30 degrees. Acute COPD Exacerbation: Mild - Resolved - Prednisone taper over the next few days - Doxycycline 100 mg po BID x 5 days total - Duonebs BENJI and PRN - Mucinex BID Non-Sustained Ventricular Tachycardia: - Initially 15 beat x 2 episodes on 01/22 - tele today with 3 beat run PVCs - Continue to monitor on tele Neurocardiogenic Syncope: - Toprol XL 150 mg daily DVT Prophylaxis: Heparin 5000 units SC Q8H Code Status: FULL RESUSCITATION Continued [facility] stay due to: multiple IV medications needed Discharge planning: home
[2017-01-25] MEDS: ATORVASTATIN 40 MG TAB PO SCH (20:00)
[2017-01-26] MEDS: ALBUT/IPRATROP 3MG/0.5MG NEB 3 ML VIAL NEB SCH ×2 (02:14→07:00)
[2017-01-26 03:45] VITALS: BP 122/71; PULSE 60; TEMP 36.6; O2SAT 94
[2017-01-26] MEDS: HEPARIN SOD 5000 UNIT/0.5 ML CARP SQ SCH (06:11)
[2017-01-26 06:29] LABS: HEMATOCRIT 42.7 % (42-52); MEAN CELL VOLUME 90.5 fL (80-100); MEAN CORPUSCULAR HEMOGLOBIN 29.7 pg (25-34); MEAN CORPUSCULAR HGB CONC 32.8 g/dl (32-36); MEAN PLATELET VOLUME 11.1 fL (7.4-10.4); PLATELET COUNT 191 K/uL (130-400); RED BLOOD COUNT 4.72 M/uL (4.7-6.1); WHITE BLOOD COUNT 7.56 K/uL (4.8-10.8)
[2017-01-26 07:01] VITALS: PULSE 64; O2SAT 95
[2017-01-26 07:07] LABS: BUN/CREATININE RATIO 28.3 (10-20); CALCIUM 8.5 mg/dl (8.5-10.1); CREATININE 0.88 mg/dl (0.60-1.40); POTASSIUM 3.9 mmol/L (3.5-5.1)
[2017-01-26] MEDS: DOXYCYCLINE HYCLATE 100 MG CAP PO SCH (07:21)
[2017-01-26] MEDS: FLUTICASONE/SALMETEROL 250/50 (ADVAIR) 14 PUFF/1 INHALER INH SCH (07:21)
[2017-01-26] MEDS: GUAIFENESIN 600 MG TABCR PO SCH (07:22)
[2017-01-26] MEDS: METOPROLOL SUCC 50MG EXT REL TAB PO SCH (07:22)
[2017-01-26] MEDS: POTASSIUM CHLORIDE 20 MEQ TABCR PO SCH (07:23)
[2017-01-26] MEDS: LISINOPRIL 10 MG TAB PO SCH (07:23)
[2017-01-26 08:19] VITALS: BP 153/94; PULSE 51; TEMP 36.7; O2SAT 94
[2017-01-26] MEDS ORDERED: LSN10 PO (08:41)
[2017-01-26] MEDS ORDERED: MCRK20 PO (08:41)
[2017-01-26] MEDS ORDERED: PRED10TA PO ×2 (08:41→08:51)
[2017-01-26] MEDS ORDERED: TPRSR100 PO (08:41)
[2017-01-26] MEDS ORDERED: LSX40 PO (08:41)
[2017-01-26] MEDS ORDERED: LPT40 PO (08:41)
--- NOTE | 2017-01-26 08:50 | Discharge Instructions ---
Discharge Instructions Date of Service Jan 26, 2017. Admission Reason for Admission: CHF Discharge Discharge Diagnosis / Problem: Acute on Chronic Systolic and Diastolic Congestive Heart Failure Discharge Goals Goal(s): Decrease discomfort, Improve function, Increase independence Activity Recommendations Activity Limitations: as noted below Lifting Limitations: gradually increase as tolerated Exercise/Sports Limitations: gradually increase as tolerated . Instructions / Follow-Up Instructions / Follow-Up Mixed Acute Systolic and Diastolic Congestive Heart Failure - IMPROVING - You were started on medications to help prevent issues with retaining fluids - These medications mostly are blood pressure medications but help with heart failure. -- These medications are used to ease the work burden of the heart. - Your metoprolol was increased from 100 mg daily to 150 mg daily - You were started on Lisinopril 10 mg daily - this is a blood pressure medication that will help your heart do what it needs to easier - Atorvastatin was started. This is a medication to help control cholesterol and reduce the risk of plaque build up in the vessels of your heart and throughout your body. Ventricular Tachycardia: - You had a rhythm on monitor called ventricular tachycardia. This can be a serious rhythm as it does not allow your body to get good blood circulating. - Please discuss with your and talk with your watch and clock maker and repairer about getting an ICD (implantable cardioverter defibrillator) - this device will monitor your heart rhythm and when a bad rhythm happens it can help shock it back into a good rhythm COPD Exacerbation: - You were also treated for a COPD exacerbation. You have finished a course of antibiotics. - You will need to complete a steroid taper -- Take 20 mg (2 tablets) on 01/27 and 01/28 -- Take 10 mg (1 tablet) on 01/29 and 01/30 "Please, follow up at [facility] with Linn Harrington PA-C on MondayFebruary 03 at 12:00 pm. *If you need to change this appointment you can call their office at . Please, follow up at [facility] with Dr. Skelton's medical records assistant, Nancy Uriarte PA-C, on MondayFebruary 13 at 1:00 pm. *If you need to change this appointment you can call the office at [phone]. " Call your Primary Care doctor if any of the following symptoms or problems start or get worse: * Shortness of breath or difficulty breathing * Wake up at night short of breath * Chest pain * Cough * Swelling of your hands, feet, or legs * More fatigued or tired with your normal activity * Palpitations - sudden fast heart beats WEIGHT * Weigh yourself every morning after using the bathroom. * Use the same scale. * Wear the same amount of clothing. * Write your weight down on a chart. * Call your Primary Care doctor if you gain more than 2-3 pounds in 1-2 days. MEDICATIONS * Use this discharge instruction sheet for medication instructions. * Take your medications at the time your doctor ordered. * Do not skip a dose of your medicines. * If you miss a dose of medicine, take it as soon as possible, but DO NOT DOUBLE A DOSE. * Read your medicine information when you get home. * Know all of the side effects of your medicine. If in doubt, ask your pharmacist * Call your Primary Care doctor's office if you have any side effects. * Be sure all of your doctors know what medicine and herbs you take (including cold, flu, and herbal medicine). Take the following with you to your follow-up doctor appointments: * Weight Chart * Medication List * List of questions Do not drink excessive alcohol, beer or wine. Current Hospital Diet Patient's current hospital diet: AHA Diet (Heart Healthy), Low Sodium Diet (2gm Na) Discharge Diet Recommended Diet: AHA Diet (Heart Healthy), Low Sodium Diet (2gm Na) Fluid Restriction: 1800 ml (7 cups) Pending Studies Studies pending at discharge: no Laboratory Results Lipid Panel Test 01/21/17 06:17 Range/Units Triglycerides Level 66 0-150 mg/dl Cholesterol Level 148 0-200 mg/dl HDL Cholesterol 40 mg/dl Cholesterol/HDL Ratio 3.7 LDL Cholesterol, Calculated 95 mg/dl Medical Emergencies . Who to Call and When: Call 911 or go to the Emergency Room if: * If at any time you feel your situation is an emergency * You have tightness or pain in your chest that does not go away with rest or Nitroglycerin * You are very short of breath even with rest . Non-Emergent Contact Non-Emergency issues call your: Primary Care Provider Call Non-Emergent contact if: you have a fever, your pain is concerning you, you have any medication questions . . "Provider Documentation" section prepared by Ana Rosa Sanford. . VTE Core Measure Inpt VTE Proph given/why not?: Unfractionated heparin SQ, SCD's
[2017-01-26] MEDS ORDERED: FUROSEMIDE 40 MG TAB PO SCH (09:00)
--- NOTE | 2017-01-26 09:37 | CARDIOLOGY PROGRESS NOTE ---
DATE: 01/26/2017 SUBJECTIVE: Mr. Gallego is resting comfortably in bed without complaints of chest pain, dyspnea, or palpitations. OBJECTIVE: VITAL SIGNS: Blood pressure is 150/90 with a regular pulse of 50-60. Respiratory rate is 18. The patient is afebrile at 36.7 degrees Celsius. Saturations 94% on room air. NECK: Supple with full carotid upstrokes. There are no carotid bruits. Jugular venous pressure is flat at 90 degrees. There is no thyromegaly. CARDIOVASCULAR: Reveals a regular rhythm with distant heart sounds. No obvious murmurs. LUNGS: Clear without rales, rhonchi, or wheezes. ABDOMEN: Soft, nontender without bruits. EXTREMITIES: Reveal intact radial artery pulses bilaterally. 1+ pretibial edema is noted. LABORATORY DATA: CBC notes hemoglobin 14.0, hematocrit 42.7, white count 7.5, platelet count 191,000. Electrolytes note a sodium of 139, potassium 3.9, chloride 100, bicarbonate 34, BUN 25, creatinine 0.88, glucose 69. assembler latches and springs notes sinus rhythm with occasional PACs and PVCs. No sustained ventricular tachycardia. IMPRESSION AND PLAN: 1. Acute on chronic systolic congestive heart failure -- the patient continues to diurese on oral furosemide. Tolerating metoprolol succinate and lisinopril without difficulty. 2. Ischemic cardiomyopathy -- ejection fraction of 35% with a QRS duration of 156 milliseconds. He is not interested in proceeding with a device at this time. He will discuss this further with his family and at our next office visit. 3. Hypertension -- controlled. 4. Coronary artery disease -- status post coronary artery bypass graft x2. May consider aspirin desensitization as an outpatient. 5. Ventricular dysrhythmia -- improved since increasing beta giles dose. 6. Tobacco abuse.
[2017-01-26] MEDS ORDERED: ADVIN25/60 INH (10:48)
[2017-01-26] MEDS ORDERED: IPRA1AER2 INH (10:48)
[2017-01-26 11:05] VITALS: BP 122/71; PULSE 51; TEMP 36.7; O2SAT 94
[2017-01-26 11:06] VITALS: BP 108/60; PULSE 54; TEMP 36.6; O2SAT 93
--- NOTE | 2017-01-26 14:53 | Discharge Summary ---
Discharge Summary Date of Service Jan 26, 2017. (Ana Rosa Sanford PA-C) Discharge Summary Admission Date: Jan 20, 2017 at 18:49 Discharge Date: Jan 26, 2017 Discharge Disposition: Home Principal Diagnosis: Acute Mixed Systolic and Diastolic CHF Problems/Secondary Diagnoses: 1. CAD S/P VA and CABG (2000) 2. COPD 3. Neurocardiogenic Syncope 4. Ventricular Tachycardia Immunizations: Have You Had Influenza Vaccine: No History of Tetanus Vaccine?: No History of Pneumococcal: No History of Hepatitis B Vaccine: No Procedures: CHEST 2 VIEWS ROUTINE FINDINGS: Cardiac silhouette is moderately enlarged. Prior median sternotomy. Atherosclerosis of the aorta. Lungs are hyperinflated and hyperlucent suggesting emphysema. Linear subsegmental opacities of the lung bases in the lateral mid lungs bilaterally suggest atelectasis with pleural parenchymal scarring. Mild blunting of the costophrenic angles suggests small effusions, unchanged. The bones of the chest are grossly intact. IMPRESSION: 1. Cardiomegaly without overt pulmonary edema. 2. Emphysema with unchanged blunting of the costophrenic angles suggesting scarring or trace effusions with bibasilar opacities likely reflecting atelectasis TWO VIEW CHEST FINDINGS: PA and lateral chest radiographs are compared to study dated 01/20/2017. The patient is status post midline sternotomy. The heart is enlarged and there is atherosclerotic calcification of the thoracic aorta. The pulmonary vascular structures noncongested. Enlargement the central pulmonary vessels suggests pulmonary artery hypertension. Emphysema is suspected. There is chronic interstitial thickening. Scarring is noted in the right midlung and at the right lung base. No airspace consolidation is seen typical for pneumonia. Nodularity is question the right midlung. Trace pleural effusions are suggested on the lateral view. There is no pneumothorax. The skeletal structures are osteopenic. Degenerative change is present in the spine. IMPRESSION: 1. Cardiomegaly. Mild pulmonary vascular congestion has resolved from 01/20/2017. 2. Suspect emphysema. 3. Trace pleural effusions are identified. 4. Suspect emphysema. A nodular density is questioned in the right midlung an age related to scarring. Correlation with a chest CT is recommended to exclude underlying pulmonary lesion. Consultations: 1. Cardiology (Ana Rosa Sanford PA-C) Medication Reconciliation New Medications: Atorvastatin (Atorvastatin Calcium) 40 Mg Tab 40 MG PO HS for 30 Days, #30 TAB Fluticasone Prop/Salmeterol (Advair Diskus 250/50 60 Dose) 1 Ea Aerp 1 PUFFS INH BID, #1 INHALER 0 Refills Furosemide (Furosemide) 40 Mg Tab 40 MG PO QAM for 30 Days, #30 TAB Lisinopril (Zestril) 10 Mg Tab 10 MG PO QAM for 30 Days, #30 TAB Potassium Chloride (Klor-Con M20) 20 Meq Tabcr 20 MEQ PO QAM for 30 Days, #30 TABS Prednisone Tab (Prednisone) 10 Mg Tab 10 MG PO DAILY, #6 TAB Take 2 tabs on 01/27- and then one tablet on 01/29- and stop Changed Medications: Metoprolol Succinate (Toprol Xl) 100 Mg Tabcr 150 MG PO DAILY for 30 Days, #45 TAB 0 Refills (Changed from: Metoprolol Succinate (Toprol Xl) 50 Mg Tabcr 100 Mg PO DAILY) Continued Medications: Ipratropium-Albuterol (Combivent Respimat) 1 Aer Aer 2 PUFFS INH QID, #1 INH (This prescription has been renewed) Discontinued Medications: Fluticasone Prop/Salmeterol (Advair Diskus 250/50 Mcg *) Aerp 1 PUFF INH BID, 0 Refills Discharge Exam Review of Systems: Constitutional: No fever, No chills ENT: No nasal symptoms, No sore throat, No trouble swallowing Respiratory: + cough, + sputum, No dyspnea on exertion, No dyspnea at rest Cardiovascular: No chest pain, No palpitations Abdomen: No pain, No nausea, No vomiting, No diarrhea, No constipation Musculoskeletal: + swelling (bilateral lower extremities - improving), No calf pain Genitourinary - Male: No dysuria Hematologic / Lymphatic: No abnormal bleeding/bruising Physical Exam: General Appearance: WD/WN, no apparent distress Eyes: sclerae normal ENT: hearing grossly normal Neck: supple, no JVD, trachea midline Respiratory/Chest: no respiratory distress, no accessory muscle use, + wheezing Cardiovascular: regular rate, rhythm, no gallop, no murmur Abdomen / GI: normal bowel sounds, non tender, soft Extremities: + swelling (bilateral pitting edema of lower extremities) Neurologic/Psychiatric: alert, oriented x 3 Skin: normal color, warm/dry (Ana Rosa Sanford, PA-C) Hospital Course ADMISSION: Mr. Gallego is a 71 y/o male with PMHx of CAD S/P VA and CABG ( 2000), COPD, and Neurocardiogenic Syncope who presents to the ED c/o progressive SOB x 1 week. Patient reports that he has had progressive CAMPO and orthopnea. He states he has some SOB at rest but is minimal. He states he can only walk about 3 steps before he needs to stop. During exam, he appeared SOB with limited movement in the bed. He states that his legs have been progressively swelling as well. He has been utilizing his home inhalers but reports that he had no relief from them. Also reports he currently ran out of medicine in them. He reports a cough that has been present for weeks and occasionally productive of green/yellow sputum. He feels that his chest is tight and cannot always expel sputum. He has noticed intermittent wheezing. He states he does not have a nebulizer machine at home. He currently smokes 3 cigarettes a day. He reports that he used to follow with cardiology for his syncopal episodes but denies knowledge of CHF. 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 Per echocardiogram in 2009, patient has an EF 30-35% with moderate-severe global hypokinesis of LV, regional wall motion abnormalities, and apical akinesis. Patient reports starting Toprol XL for his syncopal episodes. He has not followed with cardiology since 2012. He received Lasix 40 mg IV x 1 dose in ED and diuresed for 2L and reporting improvement in symptoms. He also reports hematuria but denies further urinary symptoms. He denies fever/chills, CP, N/V, abdominal pain, diarrhea/constipation, melena/hematochezia. HOSPITAL COURSE: Mr. Gallego was admitted for Acute Mixed Systolic and Diastolic Congestive Heart Failure and Mild COPD Exacerbation. Echocardiogram largely unchanged from 2010 which shows evidence of EF 30% and type 1 diastolic dysfunction. He diuresed for a negative balance of 11.6 L and is reporting baseline respiratory status. During admission he was noted to have two episodes of a 15 beat VT. This has improved since increased Toprol XL. ICD placement was discussed with him and he would like to discuss this further with his . He will be continued on Toprol XL 150 mg daily, Lisinopril 10 mg daily, Atorvastatin 40 mg daily, and Lasix 40 mg daily with K supplementation. He appeared to have a mild COPD exacerbation and will finish a short prednisone taper and completed Doxycycline 100 mg BID x 5 days. Patient is at baseline respiratory status and optimal for D/C home with PCP follow-up and cardiology follow-up. Total Time Spent: Greater than 30 minutes This includes examination of the patient, discharge planning, medication reconciliation, and communication with other providers. (Ana Rosa Sanford, CHANDLER) I agree with PA assessment and plan and have seen and examined pt myself Resting comfortably in bed No distress noted VSS Labs reviewed Acute exacerbation mixed CHF Diuresed well with IV lasix, converted to PO Increased lisinopril to 10 mg on DC as well Can f/u with cardiology on discharge (Tenzin Farris, D.O.) Discharge Instructions Please refer to the electronic Patient Visit Report (Discharge Instructions) for additional information. (Ana Rosa Sanford PA-C) Additional Copies To Mary Kate Mireles M.D.; Nancy Uriarte PA-C; Linn Harrington PA
== END 2017-01-26 15:01 | disposition home or self-care (01) | DRG 292 ==
LOC: C.EDB 13:28 → C.2T 18:49 → ENRESERV 19:37
PROVIDERS: ADMIT Family Medicine; ATTEND Hospitalist
DX: I50.43 Acute on chronic combined systolic (congestive) and diastolic (congestive) heart failure (principal); J44.1 Chronic obstructive pulmonary disease with (acute) exacerbation; I25.10 Atherosclerotic heart disease of native coronary artery without angina pectoris; I25.5 Ischemic cardiomyopathy; I25.2 Old myocardial infarction; R55 Syncope and collapse; F17.210 Nicotine dependence, cigarettes, uncomplicated; Z79.899 Other long term (current) drug therapy; Z95.1 Presence of aortocoronary bypass graft

== ENCOUNTER → 2017-02-15 | Outpatient (CLI) | payer OTHER ==
[~2017-02-15] MED LIST changes: +ADVIN25/60 INH; -ADVIN25050 INH; -CMBIN INH; +LPT40 PO; +LSN10 PO; +LSX40 PO; +MCRK20 PO; -METO-217 PO; +PRED10TA PO; +TPRSR100 PO
[2017-02-15 15:10] LABS: BLOOD UREA NITROGEN 25 mg/dl (7-18); BUN/CREATININE RATIO 25.9 (10-20); CALCIUM 9.2 mg/dl (8.5-10.1); CARBON DIOXIDE 28 mmol/L (21-32); CHLORIDE 102 mmol/L (98-107); CREATININE 0.95 mg/dl (0.60-1.40); GLUCOSE 78 mg/dl (70-99); POTASSIUM 4.7 mmol/L (3.5-5.1); SODIUM 137 mmol/L (136-145)
== END | disposition home or self-care (01) ==
LOC: C.LAB1850 12:54
PROVIDERS: ATTEND Internal Medicine
DX: I42.9 Cardiomyopathy, unspecified (principal)

== ENCOUNTER → 2017-04-10 | Outpatient (CLI) | payer OTHER ==
[2017-04-10 13:12] LABS: ALBUMIN 3.8 gm/dl (3.4-5.0); ALT/SGPT 30 U/L (12-78); AST/SGOT 20 U/L (15-37); BLOOD UREA NITROGEN 23 mg/dl (7-18); CALCIUM 9.4 mg/dl (8.5-10.1); CARBON DIOXIDE 28 mmol/L (21-32); GLUCOSE 95 mg/dl (70-99); POTASSIUM 4.4 mmol/L (3.5-5.1); SODIUM 137 mmol/L (136-145)
[2017-04-10 13:14] LABS: ALKALINE PHOSPHATASE 128 U/L (45-117); TOTAL PROTEIN 7.6 gm/dl (6.4-8.2)
== END | disposition home or self-care (01) ==
LOC: C.LABBFT 11:15
PROVIDERS: ATTEND Physician Assistant
DX: I42.9 Cardiomyopathy, unspecified (principal)

== ENCOUNTER 2018-05-17 11:57 | Inpatient (IN) ==
[2018-05-17] MEDS ORDERED: FUROSEMIDE 40 MG/4 ML VIAL IV STA (12:44)
[2018-05-17] MEDS ORDERED: NITROGLYCERIN 2% OINTMENT 30GM TUBE EXT STA (12:44)
[2018-05-17 13:04] LABS: Appearance Urine Clear (Clear); Blood Urine Negative (Negative); Color Urine Dark Yellow; Epithelial Cell Urine Auto 20-30 /lpf (0-5); Glucose Urine UA Negative (Negative); Ketones Urine Trace (Negative); Leukocyte Esterase Urine Negative (Negative); Nitrite Urine Positive (Negative); Protein Urine 2+ (Negative); RBC Urine Automated 0-4 /hpf (0-4); Specific Gravity Urine 1.029 (1.000-1.030); Urobilinogen Urine Negative (Negative)
[2018-05-17 13:08] LABS: Bilirubin Urine Negative (Negative); Ictotest Urine Negative (Negative)
[2018-05-17 13:13] LABS: Basophils # (auto) 0.02 K/uL (0-0.2); Basophils % (auto) 0.3 %; Eosinophils # (auto) 0.18 K/uL (0-0.5); Eosinophils % (auto) 2.4 %; Hematocrit (blood only) 44.1 % (42-52); Hemoglobin 14.4 g/dL (14.0-18.0); Immature Granulocytes # (auto) 0.02 K/uL (0.00-0.02); Immature Granulocytes % (auto) 0.3 %; Lymphocytes # (auto) 0.56 K/uL (1.2-3.4); Lymphocytes % (auto) 7.3 %; Mean Corpuscular Hgb Conc 32.7 g/dL (32-36); Mean Corpuscular Volume 91.7 fL (80-100); Mean Platelet Volume 10.2 fL (7.4-10.4); Monocytes % (auto) 7.9 %; Neutrophils # (auto) 6.26 K/uL (1.4-6.5); Neutrophils % (auto) 81.8 %; Platelet Count 239 K/uL (130-400); RDW Coefficient of Variation 15.3 % (11.5-14.5); RDW Standard Deviation 51.8 fL (36.4-46.3); Red Blood Count 4.81 M/uL (4.7-6.1); White Blood Count 7.64 K/uL (4.8-10.8)
--- NOTE | 2018-05-17 13:16 | XRay Report ---
XR chest 1V portable HISTORY: shortness of breath COMPARISON: Chest 01/13/2018. FINDINGS: No pneumothorax. Stable blunting of the costophrenic sulci, right greater the left. The hea rt remains moderately enlarged. There are poststernotomy changes. The upper lung zones are clear. Sca ttered linear densities within the bilateral mid to lower lung zones persist. No new focal lung conso lidations. No evidence for pulmonary edema. Overall, improved aeration within the lung bases compared to the prior study. IMPRESSION: 1. Overall, improved aeration within the lung bases. Persistent scarlike densities within the mid to lower lung zones are again noted. 2. Stable moderate cardiomegaly. Electronically signed by: Lio Gates M.D. 05/17/2018 1:14 PM
[2018-05-17 13:22] LABS: Albumin Level 3.2 gm/dl (3.4-5.0); BUN Creatinine Ratio 23.8 (10-20); Calcium 8.2 mg/dl (8.5-10.1); Creatinine Clr Calc Pharmacy 103.8 ml/min; Est GFR (African American) 99.5; Est GFR (Non-African American) 85.8; Magnesium 1.8 mg/dl (1.8-2.4); Potassium 4.2 mmol/L (3.5-5.1)
[2018-05-17 13:27] LABS: Albumin Globulin Ratio 0.9 (0.9-2); Bilirubin,Total 1.7 mg/dl (0.2-1); Globulin 3.4 gm/dl (2.5-4.0); Total Protein 6.6 gm/dl (6.4-8.2); Troponin I 0.062 ng/ml (0-0.045)
[2018-05-17 13:27] LABS: Cast Urine Automated >30 /lpf (0-5); Mucus Urine Present (None Prsent)
[2018-05-17 13:28] LABS: Bacteria Urine Automated 1+ (Negative)
[2018-05-17 13:34] LABS: INR 1.3 (0.9-1.1); Partial Thromboplastin Ratio 1.1; Partial Thromboplastin Time 30.6 Seconds (21.0-31.0); Prothrombin Time 13.3 Seconds (9.0-12.0)
[2018-05-17] MEDS ORDERED: cefTRIAXone SODIUM 1,000 MG/50 ML BAG IV STA (13:58)
--- NOTE | 2018-05-17 14:51 | History & Physical Report ---
Date of Service May 17, 2018 Assessment & Plan (1) Acute exacerbation of CHF (congestive heart failure): acute on chronic combined diastolic and systolic HF, last EF 35% markedly volume overloaded, weight is 275lbs, previous baseline 230lbs? that may not be true pitting edema to knees bilaterally will aggressively diurese with Lasix 40mg IV q6, place vazquez for accurate output daily weights in the morning, needs to be on standing scale fluid restriction to 1500cc/day continue Lisinopril, hold Metoprolol due to bradycardia check transthoracic echo consult cardiology, [facility] needs follow up with heart failure clinic concerned that patient cannot be in charge of his medications case management consulted (2) Cellulitis: right leg is very red and warm will treat with Rocephin and watch for clinical response (3) Hypertension: BP stable continue Lisinopril, Lasix hold Metoprolol due to bradycardia (4) Hyperlipidemia: continue statin (5) Mild cognitive impairment: has a history of such certainly has issues remembering medications did not understand the serious problem of being out of his medications for his heart failure patient really should not be in charge of his medications at home certainly needs home nursing at first but family member would need to take over that responsibility if possible (6) COPD (chronic obstructive pulmonary disease): patient has a mild productive cough, no wheezing he is not sure if he is out of his inhalers will resume Incruse Ellipta, Combivent, Advair (7) Arrhythmia: on the monitor there are occasional P waves but they are not there at other times has PVC's frequently will monitor on tele over night, try to determine rhythm, whether or not he has afib consistently defer to cardiology for further recommendations holding Metoprolol initially due to rates in 40-50's at times unsure that he has even been taking it at home (8) Abnormal urinalysis: ED gave patient a dose of Rocephin only 1-5 WBC so low suspicion for infection, no symptoms follow up on urine culture (9) DVT prophylaxis: Lovenox History of Present Illness Chief Complaint: I ran out of my medications Primary Care Provider: Mary Kate Mireles MD 73 yo male with history of combined heart failure, EF of 35% and COPD presents to the ED complaining of shortness of breath that has progressed over the past several days. He was seen in October of 2018 for the exact same presentation, his weight was up at 275lbs from reported baseline of 230lbs, he was diuresed 2.5 liters and discharged to home on increased dose of Lasix 60mg, up from 40mg. He says that over the past week or so he has felt more short of breath. He says that over the past few weeks he has seen more and more swelling in his legs and that over the past week the right leg has turned red. No fever or chills. When asked if he is taking his medications he says that he ran out of most of his medications. I asked him how long he has been out of them and he said he did not know. When asked why he ran out he said it was an issue with his insurance provider, something had changed. I asked if he saw his PCP for prescriptions and he said he did not know. He apparently is in charge of his own medications but he could not tell me what he is supposed to be taking. He admits that he drinks a lot of water during the day as well as black coffee in the morning and soda occasionally, always decaffeinated. He says he never adds salt to his food, but cannot tell me if he eats foods high in sodium. He does not weigh himself at home. In the ED he was obviously volume overloaded with pitting edema above the knees bilaterally. Lung sounds were diminished but he had rales. CXR with cardiomegaly and bilateral pulmonary edema. He was given a dose of Lasix 40mg IV and he urinated about 500cc total in one hour. Asked him who his application development specialist is, he first said Dr. Mcclain. Explained that he was a lung doctor who no longer practices here. He then said that he thinks he used to see Dr. Odonnell, but cannot remember the last time he saw him. He denies any chest pain or pressure today. No fever or chills. No abdominal pain, nausea, vomiting, diarrhea or constipation. He has the edema bilaterally and redness in his legs. Allergies Allergy/AdvReac Type Severity Reaction Status Date / Time aspirin Allergy Severe Hives Verified 05/17/18 13:07 Home Medications Home Medications Medication Instructions Recorded Confirmed Type atorvastatin 80 mg PO HS 01/14/18 05/17/18 History fluticasone-salmeterol [Advair 1 inh INHALATION BID 01/14/18 05/17/18 History Diskus] ipratropium-albuterol [Combivent 1 puff INHALATION Q4 01/14/18 05/17/18 History Respimat] lisinopril 20 mg PO QAM 01/14/18 05/17/18 History metoprolol succinate 200 mg PO QAM 01/14/18 05/17/18 History furosemide [Lasix] 40 mg PO QAM 05/17/18 05/17/18 History umeclidinium [Incruse Ellipta] 1 inh INHALATION QAM 05/17/18 05/17/18 History Past Med/Surg History Medical History COPD (chronic obstructive pulmonary disease) CHF (congestive heart failure) combined systolic and diastolic, last documented EF 35% Surgical History History of heart surgery Family History Other CAD (coronary artery disease) HTN (hypertension) Social History Current Living Situation: Spouse Feels Safe at Home: Yes Smoking Status: Current every day smoker Cigarettes per Day: 5 Second Hand Exposure: No ( quit smoking) Hx Alcohol Use: Yes Alcohol type: beer Alcohol Intake Frequency: a few times a week Hx Substance Use: No Beliefs That Will Affect Care: None Preferred Language: [place] Visual Impairment: No Limitations Review of Systems All systems reviewed & are unremarkable except as noted in HPI & below Physical Exam 2 Vital Signs (Past 24 Hours): Last Vital Signs Temp 36.7 C 05/17/18 12:17 Pulse 78 05/17/18 14:01 Resp 22 05/17/18 14:01 BP 160/89 H 05/17/18 14:01 Pulse Ox 93 05/17/18 14:01 Constitutional: WD/WN, vitals as above + obese Eyes: PERRL, conjunctivae normal, anicteric sclerae ENMT: external ear and nose normal, oropharynx normal Neck: trachea midline, no thyromegaly Respiratory: normal respiratory effort and + cough Auscultation: + diminished lung sounds and + rales (bases); no rhonchi and no wheezes Cardiovascular: Rate/Rhythm: + bradycardic; + abnormal rhythm (frequent PVCs) Heart Sounds: normal S1 and normal S2; no murmur Vessels: + JVD; no carotid bruit Extremities: + edema (pitting to knees bilaterally) Gastrointestinal (Abdomen): normal bowel sounds, soft, nontender, no hepatosplenomegaly Musculoskeletal: no cyanosis or clubbing, extremities motor strength 5/5 Skin: no rashes, warm and dry Neurologic: patellar DTR's 2+ bilat, sensation intact and PERRL, EOMI, accommodation nl, no face palsy, no dysarthria normal touch/pain/ proprioception Psychiatric: A+Ox3, euthymic affect Cognition: + recent memory not intact ( poor memory about medications, physicians) Insight: + limited insight Lymphatic: no cervical or axillary lymphadenopathy Results & Data Laboratory Results Laboratory Results - last 24 hr 05/17/18 05/17/18 05/17/18 12:20 12:45 12:45 WBC 7.64 RBC 4.81 Hgb 14.4 Hct 44.1 MCV 91.7 MCH 29.9 MCHC 32.7 RDW Std Deviation 51.8 H RDW Coeff of [place] 15.3 H Plt Count 239 MPV 10.2 Immature Gran % (Auto) 0.3 Neut % (Auto) 81.8 Lymph % (Auto) 7.3 [place] % (Auto) 7.9 Eos % (Auto) 2.4 Baso % (Auto) 0.3 Immature Gran # (Auto) 0.02 Neut # (Auto) 6.26 Lymph # (Auto) 0.56 L [place] # (Auto) 0.60 H Eos # (Auto) 0.18 Baso # (Auto) 0.02 PT 13.3 H INR 1.3 H APTT 30.6 PTT Ratio 1.1 Sodium Potassium Chloride Carbon Dioxide Anion Gap BUN Creatinine Est Cr Clr Drug Dosing Est GFR ( Amer) Est GFR (Non-Af Amer) BUN/Creatinine Ratio Glucose Calcium Magnesium Total Bilirubin AST ALT Alkaline Phosphatase Troponin I Total Protein Albumin Globulin Albumin/Globulin Ratio Specimen Hemolysis Urine Color Dark Yellow Urine Appearance Clear Urine pH 5.0 Ur Specific [place] 1.029 Urine Protein 2+ H Urine Glucose (UA) Negative Urine Ketones Trace H Urine Blood Negative Urine Nitrite Positive H Urine Bilirubin Negative Urine Urobilinogen Negative Ur Leukocyte Esterase Negative Urine WBC (Auto) 1-5 Urine RBC (Auto) 0-4 U Hyaline Cast (Auto) >30 H U Epithel Cells (Auto) 20-30 H Urine Bacteria (Auto) 1+ H Granular Casts 5-10 H Urine Mucus Present H 05/17/18 12:45 WBC RBC Hgb Hct MCV MCH MCHC RDW Std Deviation RDW Coeff of [place] Plt Count MPV Immature Gran % (Auto) Neut % (Auto) Lymph % (Auto) [place] % (Auto) Eos % (Auto) Baso % (Auto) Immature Gran # (Auto) Neut # (Auto) Lymph # (Auto) [place] # (Auto) Eos # (Auto) Baso # (Auto) PT INR APTT PTT Ratio Sodium 136 Potassium 4.2 Chloride 104 Carbon Dioxide 27 Anion Gap 5.0 BUN 21 H Creatinine 0.88 Est Cr Clr Drug Dosing 103.8 Est GFR ( Amer) 99.5 Est GFR (Non-Af Amer) 85.8 BUN/Creatinine Ratio 23.8 H Glucose 74 Calcium 8.2 L Magnesium 1.8 Total Bilirubin 1.7 H AST 22 ALT 19 Alkaline Phosphatase 107 Troponin I 0.062 H* Total Protein 6.6 Albumin 3.2 L Globulin 3.4 Albumin/Globulin Ratio 0.9 Specimen Hemolysis Urine Color Urine Appearance Urine pH Ur Specific [place] Urine Protein Urine Glucose (UA) Urine Ketones Urine Blood Urine Nitrite Urine Bilirubin Urine Urobilinogen Ur Leukocyte Esterase Urine WBC (Auto) Urine RBC (Auto) U Hyaline Cast (Auto) U Epithel Cells (Auto) Urine Bacteria (Auto) Granular Casts Urine Mucus Diagnostic Findings XR chest 1V portable HISTORY: shortness of breath COMPARISON: Chest 01/13/2018. FINDINGS: No pneumothorax. Stable blunting of the costophrenic sulci, right greater the left. The heart remains moderately enlarged. There are poststernotomy changes. The upper lung zones are clear. Scattered linear densities within the bilateral mid to lower lung zones persist. No new focal lung consolidations. No evidence for pulmonary edema. Overall, improved aeration within the lung bases compared to the prior study. IMPRESSION: 1. Overall, improved aeration within the lung bases. Persistent scarlike densities within the mid to lower lung zones are again noted. 2. Stable moderate cardiomegaly. ECG Indication: SOB/dyspnea Rhythm: other (rhythm undetermined, difficult to see P waves, frequent PVC) Code Status & VTE Plan Code Status full code VTE Prophylaxis Plan VTE Prophylaxis will be ordered: Yes _ (1) Acute exacerbation of CHF (congestive heart failure) Heart failure type: combined systolic and diastolic Qualified Code(s): I50.43 - Acute on chronic combined systolic (congestive) and diastolic ( congestive) heart failure
--- NOTE | 2018-05-17 15:28 | Emergency Department Note ---
Entered by Addy Pimentel acting as a scribe for Hector Ornelas MD ED Provider Note CHIEF COMPLAINT: Shortness of Breath and Dyspnea HISTORY OF PRESENT ILLNESS: Patient is a 73 year old male who presents himself the ER via EMS with complains of shortness of breath which has been going on for couple years. He has been to the ER for this same complaint 3-4 times before. Upon EMS arrival his pulse oximeter was noted at 89% and the patient also notes running out of his Lasix pills this last March. The EMS gave him nitro in the ambulance and that seemed to help. He currently states a 40 pound weight gain in the last 2 months. His PCP is Dr Mary Kate Mireles in [facility]. Pt denies, fevers, chills, diaphoresis, visual changes, neck pain,breathing difficulties, nausea, vomiting, abdominal pain, back pain, melena, hematochezia, urinary symptoms, numbness, weakness, lymphadenopathy, rash, or other complaints. REVIEW OF SYSTEMS: See HPI for pertinent positives and negatives. A total of ten systems were reviewed and were otherwise negative. PMHx/PSHx: -COPD -CHF SOCIAL HISTORY: Patient lives at home. PHYSICAL EXAM: GENERAL: Awake, alert, well-appearing, in no distress HENT: Normocephalic, atraumatic. Oropharynx unremarkable. EYES: Normal conjunctiva. Sclera non-icteric. NECK: Inspection normal. Non-tender. Supple. No nuchal rigidity. FROM. No masses. RESPIRATORY: Rales Bilaterally. No wheezes. No rales. Normal respiratory effort and Scattered Rales CARDIAC: Bradychardic irregular. Normal rhythm. No murmurs. No rubs. Extremities warm and well perfused. Pulses equal. No JVD. GI: Soft, non-distended. No tenderness to palpation. No rebound or guarding. No masses. RECTAL: Deferred. MUSCULOSKELETAL: Atraumatic. Chest examination reveals no tenderness. The back is symmetrical on inspection without obvious abnormality. There is no CVA tenderness to palpation. No joint edema. LOWER EXTREMITIES: Calves are equal size bilaterally and non-tender, 3+ Fitting edema to the knee. No discoloration. NEURO: Normal sensorium. No sensory or motor deficits noted. SKIN: No rash or jaundice noted. EMERGENCY DEPARTMENT COURSE: 1240: Past medical records reviewed. The patient was evaluated in room A12, and a complete history and physical examination were performed. 1400: I discussed the treatment with , [facility]. I reevaluated the patient and he is feeling better after his Lasixs pills were administered. 1405: I discussed the treatment plan with the patient and they verbalized agreement. The patient will be admitted under Dr. Callejas's care. MEDICAL DECISION MAKING: Triage Nursing notes reviewed. The patient's presentation and history were concerning for shortness of breath, leg swelling, and weight gain. Etiologies such as CHF, cardiac ischemia, pneumonia, reactive airway disease, pulmonary embolism, pneumothorax, COPD, musculoskeletal, infections, gastrointestinal, as well as others were entertained. Patient was evaluated. He was short of breath. EMS noted a saturation of 89% on room air. He was doing well on supplemental oxygen. He received nitro prehospital. The patient was given Nitropaste and IV Lasix here. He had significant lower extremity edema on examination. Chest x-ray does not reveal any evidence of significant pulmonary edema. Prior records were reviewed. The patient has been admitted in the past for CHF. Previous documentation noted an EF of 35%. He has not been taking his diuretic at home. After the IV Lasix the patient did urinate twice. The patient was feeling somewhat better. His ECG was concerning for a junctional rhythm. His troponin was mildly elevated. Chemistry panel revealed a normal creatinine. Urinalysis was concerning for infection. The patient was given IV Rocephin. There was no evidence of pneumonia on chest x-ray. Further evaluation and management will be necessary in the hospital. Consultation was made with Dr. Callejas of [facility] internal medicine. The patient was evaluated in the ER and admitted for further treatment. IMPRESSION: Acute CHF Lower Extremity Edema Elevated Troponin UTI PLAN: Admit The scribe's documentation has been prepared under my direction and personally reviewed by me in its entirety. I confirm that the note above accurately reflects all work, treatment, procedures, and medical decision making performed by me. 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, last documented EF 35% Surgical History History of heart surgery Family History Other CAD (coronary artery disease) HTN (hypertension) Social History Current Living Situation: Spouse Other Information That Helps Us Care for You: No Feels Safe at Home: Yes Safety Concerns: Feels Safe At This Time Smoking Status: Current every day smoker Tobacco Type: cigarettes Do You Dip or Chew Tobacco: No Tobacco Cessation Education Requested by Patient: No Hx Alcohol Use: Yes Alcohol type: beer Alcohol Intake Frequency: a few times a week Hx Substance Use: No Beliefs That Will Affect Care: None Preferred Language: Guyanese Communication Ability: Effective Continuous Improvement Coach Required: No Results & Data Vital Signs Vital Signs - 24 hr 05/17/18 12:05 05/17/18 12:15 05/17/18 12:17 Temperature 36.7 C Temperature Source Oral Sepsis Recent Fever Within 48 Hours No Sepsis Action Taken by Nursing No Action Required Pulse Rate 68 62 63 Pulse Rate [Radial] Pulse Rate from SpO2 Sensor 66 Pulse Rhythm Respiratory Rate 19 17 22 Respiratory Effort / Characteristics Respiratory Depth Respiratory Pattern Blood Pressure 153/97 H 153/97 H Blood Pressure [Left Arm] Blood Pressure [Right Arm] Blood Pressure Mean 115 115 Blood Pressure Mean [Left Arm] Blood Pressure Mean [Right Arm] Blood Pressure Position [Left Arm] Blood Pressure Position [Right Arm] Pulse Oximetry 98 89 L Oxygen Delivery Method Room Air Oxygen Flow Rate 05/17/18 12:30 05/17/18 12:53 05/17/18 13:00 Temperature Temperature Source Sepsis Recent Fever Within 48 Hours Sepsis Action Taken by Nursing Pulse Rate 59 L 70 Pulse Rate [Radial] Pulse Rate from SpO2 Sensor 49 L Pulse Rhythm Regular Respiratory Rate 22 20 Respiratory Effort / Characteristics Respiratory Depth Respiratory Pattern Blood Pressure Blood Pressure [Left Arm] Blood Pressure [Right Arm] Blood Pressure Mean Blood Pressure Mean [Left Arm] Blood Pressure Mean [Right Arm] Blood Pressure Position [Left Arm] Blood Pressure Position [Right Arm] Pulse Oximetry 97 99 Oxygen Delivery Method Nasal Cannula Nasal Cannula Oxygen Flow Rate 4 4 05/17/18 13:22 05/17/18 13:30 05/17/18 13:31 Temperature Temperature Source Sepsis Recent Fever Within 48 Hours Sepsis Action Taken by Nursing Pulse Rate 49 L 55 L 48 L Pulse Rate [Radial] Pulse Rate from SpO2 Sensor 48 L 57 L 42 L Pulse Rhythm Respiratory Rate 19 19 21 Respiratory Effort / Characteristics Respiratory Depth Respiratory Pattern Blood Pressure 147/75 H 133/64 Blood Pressure [Left Arm] Blood Pressure [Right Arm] Blood Pressure Mean 99 87 Blood Pressure Mean [Left Arm] Blood Pressure Mean [Right Arm] Blood Pressure Position [Left Arm] Blood Pressure Position [Right Arm] Pulse Oximetry 99 99 98 Oxygen Delivery Method Nasal Cannula Oxygen Flow Rate 4 05/17/18 14:00 05/17/18 14:01 05/17/18 16:09 Temperature 36.8 C Temperature Source Oral Sepsis Recent Fever Within 48 Hours Sepsis Action Taken by Nursing Pulse Rate 88 78 Pulse Rate [Radial] Pulse Rate from SpO2 Sensor 78 Pulse Rhythm Respiratory Rate 24 22 16 Respiratory Effort / Characteristics Non-Labored Respiratory Depth Normal Respiratory Pattern Regular Blood Pressure 160/89 H Blood Pressure [Left Arm] Blood Pressure [Right Arm] 148/60 H Blood Pressure Mean 112 Blood Pressure Mean [Left Arm] Blood Pressure Mean [Right Arm] 89 Blood Pressure Position [Left Arm] Blood Pressure Position [Right Arm] Sitting Pulse Oximetry 93 97 Oxygen Delivery Method Nasal Cannula Nasal Cannula Oxygen Flow Rate 4 4 05/17/18 17:15 05/17/18 18:36 Temperature 36.6 C Temperature Source Oral Sepsis Recent Fever Within 48 Hours Sepsis Action Taken by Nursing Pulse Rate Pulse Rate [Radial] 60 Pulse Rate from SpO2 Sensor Pulse Rhythm Respiratory Rate 18 Respiratory Effort / Characteristics Non-Labored Spontaneous Short of Breath SOB on Exertion Respiratory Depth Normal Respiratory Pattern Regular Blood Pressure Blood Pressure [Left Arm] 125/63 Blood Pressure [Right Arm] Blood Pressure Mean Blood Pressure Mean [Left Arm] 83 Blood Pressure Mean [Right Arm] Blood Pressure Position [Left Arm] Lying Blood Pressure Position [Right Arm] Pulse Oximetry 91 Oxygen Delivery Method Nasal Cannula Room Air Oxygen Flow Rate 3 Home Medications Current Medication List: was personally reviewed by me Laboratory Data Attestation: I reviewed the patient's lab results. Result diagrams: 05/17/18 12:45 05/17/18 12:45 Lab Results 05/17/18 05/17/18 05/17/18 Range/Units 12:20 12:45 12:45 WBC 7.64 (4.8-10.8) K/uL RBC 4.81 (4.7-6.1) M/uL Hgb 14.4 (14.0-18.0) g/dL Hct 44.1 (42-52) % MCV 91.7 (80-100) fL MCH 29.9 (25-34) pg MCHC 32.7 (32-36) g/dL RDW Std Deviation 51.8 H (36.4-46.3) fL RDW Coeff of Ryanne 15.3 H (11.5-14.5) % Plt Count 239 (130-400) K/uL MPV 10.2 (7.4-10.4) fL Immature Gran % (Auto) 0.3 % Neut % (Auto) 81.8 % Lymph % (Auto) 7.3 % [place] % (Auto) 7.9 % Eos % (Auto) 2.4 % Baso % (Auto) 0.3 % Immature Gran # (Auto) 0.02 (0.00-0.02) K/uL Neut # (Auto) 6.26 (1.4-6.5) K/uL Lymph # (Auto) 0.56 L (1.2-3.4) K/uL [place] # (Auto) 0.60 H (0.11-0.59) K/uL Eos # (Auto) 0.18 (0-0.5) K/uL Baso # (Auto) 0.02 (0-0.2) K/uL PT 13.3 H (9.0-12.0) Seconds INR 1.3 H (0.9-1.1) APTT 30.6 (21.0-31.0) Seconds PTT Ratio 1.1 Sodium (136-145) mmol/L Potassium (3.5-5.1) mmol/L Chloride (98-107) mmol/L Carbon Dioxide (21-32) mmol/L Anion Gap (3-11) BUN (7-18) mg/dl Creatinine (0.6-1.4) mg/dl Est Cr Clr Drug Dosing ml/min Est GFR ( Amer) Est GFR (Non-Af Amer) BUN/Creatinine Ratio (10-20) Glucose (70-99) mg/dl Calcium (8.5-10.1) mg/dl Magnesium (1.8-2.4) mg/dl Total Bilirubin (0.2-1) mg/dl AST (15-37) U/L ALT (12-78) U/L Alkaline Phosphatase (45-117) U/L Troponin I (0-0.045) ng/ml Total Protein (6.4-8.2) gm/dl Albumin (3.4-5.0) gm/dl Globulin (2.5-4.0) gm/dl Albumin/Globulin Ratio (0.9-2) Specimen Hemolysis Urine Color Dark Yellow Urine Appearance Clear (Clear) Urine pH 5.0 (4.5-7.5) Ur Specific [place] 1.029 (1.000-1.030) Urine Protein 2+ H (Negative) Urine Glucose (UA) Negative (Negative) Urine Ketones Trace H (Negative) Urine Blood Negative (Negative) Urine Nitrite Positive H (Negative) Urine Bilirubin Negative (Negative) Urine Urobilinogen Negative (Negative) Ur Leukocyte Esterase Negative (Negative) Urine WBC (Auto) 1-5 (0-5) /hpf Urine RBC (Auto) 0-4 (0-4) /hpf U Hyaline Cast (Auto) >30 H (0-5) /lpf U Epithel Cells (Auto) 20-30 H (0-5) /lpf Urine Bacteria (Auto) 1+ H (Negative) Granular Casts 5-10 H (0) /lpf Urine Mucus Present H (None Prsent) 05/17/18 Range/Units 12:45 WBC (4.8-10.8) K/uL RBC (4.7-6.1) M/uL Hgb (14.0-18.0) g/dL Hct (42-52) % MCV (80-100) fL MCH (25-34) pg MCHC (32-36) g/dL RDW Std Deviation (36.4-46.3) fL RDW Coeff of Ryanne (11.5-14.5) % Plt Count (130-400) K/uL MPV (7.4-10.4) fL Immature Gran % (Auto) % Neut % (Auto) % Lymph % (Auto) % [place] % (Auto) % Eos % (Auto) % Baso % (Auto) % Immature Gran # (Auto) (0.00-0.02) K/uL Neut # (Auto) (1.4-6.5) K/uL Lymph # (Auto) (1.2-3.4) K/uL [place] # (Auto) (0.11-0.59) K/uL Eos # (Auto) (0-0.5) K/uL Baso # (Auto) (0-0.2) K/uL PT (9.0-12.0) Seconds INR (0.9-1.1) APTT (21.0-31.0) Seconds PTT Ratio Sodium 136 (136-145) mmol/L Potassium 4.2 (3.5-5.1) mmol/L Chloride 104 (98-107) mmol/L Carbon Dioxide 27 (21-32) mmol/L Anion Gap 5.0 (3-11) BUN 21 H (7-18) mg/dl Creatinine 0.88 (0.6-1.4) mg/dl Est Cr Clr Drug Dosing 103.8 ml/min Est GFR ( Amer) 99.5 Est GFR (Non-Af Amer) 85.8 BUN/Creatinine Ratio 23.8 H (10-20) Glucose 74 (70-99) mg/dl Calcium 8.2 L (8.5-10.1) mg/dl Magnesium 1.8 (1.8-2.4) mg/dl Total Bilirubin 1.7 H (0.2-1) mg/dl AST 22 (15-37) U/L ALT 19 (12-78) U/L Alkaline Phosphatase 107 (45-117) U/L Troponin I 0.062 H* (0-0.045) ng/ml Total Protein 6.6 (6.4-8.2) gm/dl Albumin 3.2 L (3.4-5.0) gm/dl Globulin 3.4 (2.5-4.0) gm/dl Albumin/Globulin Ratio 0.9 (0.9-2) Specimen Hemolysis Urine Color Urine Appearance (Clear) Urine pH (4.5-7.5) Ur Specific [place] (1.000-1.030) Urine Protein (Negative) Urine Glucose (UA) (Negative) Urine Ketones (Negative) Urine Blood (Negative) Urine Nitrite (Negative) Urine Bilirubin (Negative) Urine Urobilinogen (Negative) Ur Leukocyte Esterase (Negative) Urine WBC (Auto) (0-5) /hpf Urine RBC (Auto) (0-4) /hpf U Hyaline Cast (Auto) (0-5) /lpf U Epithel Cells (Auto) (0-5) /lpf Urine Bacteria (Auto) (Negative) Granular Casts (0) /lpf Urine Mucus (None Prsent) Administered Medications Albuterol (Combivent Respimat) 1 puffs INH Q4 BENJI Stop: 06/16/18 16:06 Last Admin: 05/17/18 20:33 Dose: 1 puffs Admin: 05/17/18 19:15 Dose: 1 puffs Atorvastatin Calcium (Lipitor) 80 mg PO HS BENJI Stop: 06/16/18 20:59 Last Admin: 05/17/18 20:34 Dose: 80 mg Enoxaparin Sodium (Lovenox) 40 mg SQ Q24H BENJI Stop: 06/16/18 17:59 Last Admin: 05/17/18 19:13 Dose: 40 mg Furosemide 40 mg/ Syringe 4 mls @ 4 mls/min IV Q6H BENJI Stop: 06/16/18 17:59 Last Admin: 05/17/18 19:13 Dose: 4 mls/min Miscellaneous (Order Awaiting Action) 1 ea N/A QS BENJI Stop: 06/16/18 15:59 Last Admin: 05/17/18 19:04 Dose: Not Given Fluticasone/Salmeterol (Advair Diskus 250/50) 1 puffs INH BID BENJI Stop: 06/16/18 20:59 Last Admin: 05/17/18 19:16 Dose: Not Given Discontinued Medications Furosemide (Lasix) 40 mg IV NOW STA Stop: 05/17/18 12:45 Last Admin: 05/17/18 13:15 Dose: 40 mg Ceftriaxone Sodium (Rocephin) 1,000 mg in 50 mls @ 100 mls/hr IV NOW STA Stop: 05/17/18 14:27 Last Infusion: 05/17/18 14:50 Dose: 0 mls/hr Admin: 05/17/18 14:13 Dose: 100 mls/hr Nitroglycerin (Nitro-Bid 2%) 0.5 inch EXT NOW STA Stop: 05/17/18 12:45 Last Admin: 05/17/18 13:15 Dose: 0.5 inch Imaging Data Attestation: I personally reviewed and interpreted this imaging study as follows : Radiologist's Impression: Radiology results as stated below per my review and the radiologist's interpretation: XR chest 1V portable HISTORY: shortness of breath COMPARISON: Chest 01/13/2018. FINDINGS: No pneumothorax. Stable blunting of the costophrenic sulci, right greater the left. The heart remains moderately enlarged. There are poststernotomy changes. The upper lung zones are clear. Scattered linear densities within the bilateral mid to lower lung zones persist. No new focal lung consolidations. No evidence for pulmonary edema. Overall, improved aeration within the lung bases compared to the prior study. IMPRESSION: 1. Overall, improved aeration within the lung bases. Persistent scarlike densities within the mid to lower lung zones are again noted. 2. Stable moderate cardiomegaly. Electronically signed by: Lio Gates M.D. 05/17/2018 1:14 PM ECG Data Attestation: I personally reviewed and interpreted this ECG as follows: Indication: SOB/dyspnea Rate (beats per minute): 61 Rhythm: junctional Findings: + other (left axis deviation ), + PVC and + RBBB; no ST elevation Blood Pressure Blood Pressure Findings: Elevated blood pressure Blood Pressure Disposition: Referred to patients primary care provider Discharge Plan Visit Data *Final* Discharge Date/Time: 05/17/18 15:31 Chief Complaint: Shortness of Breath/Dyspnea Stated Complaint: respiratory distress ED Provider: Hector Ornelas Discharge Problem: Acute CHF, Bilateral edema of lower extremity, Elevated troponin, Acute UTI Patient Disposition: Admitted As Inpatient Discharge Instructions Interventions: ED Discharge Assessment Last Done: 05/17/18 15:31 The scribe's documentation has been prepared under my direction and personally reviewed by me in its entirety. I confirm that the note above accurately reflects all work, treatment, procedures, and medical decision making performed by me.
[2018-05-17] MEDS ORDERED: POLYETHYLENE (MIRALAX) 17 GM PACK PO PRN (16:07)
[2018-05-17] MEDS ORDERED: ACETAMINOPHEN 325 MG TAB PO PRN (16:07)
[2018-05-17] MEDS ORDERED: ONDANSETRON INJ 2 MG/ML 2 ML VIAL IV PRN (16:07)
[2018-05-17] MEDS: FUROSEMIDE 40 MG in SYRINGE 0 ML IV SCH ×2 (19:13→23:28)
[2018-05-17] MEDS: ENOXAPARIN INJ 40 MG/0.4 ML SYR SQ SCH (19:13)
[2018-05-17] MEDS: IPRATROPIUM BROMIDE/ALBUTEROL respimat INH INH SCH ×3 (19:15→23:27)
[2018-05-17] MEDS: FLUTICASONE/SALMETEROL 250/50 (ADVAIR) 14 PUFF/1 INHALER INH SCH (19:16)
[2018-05-17] MEDS: ATORVASTATIN 40 MG TAB PO SCH (20:34)
[2018-05-18] MEDS: IPRATROPIUM BROMIDE/ALBUTEROL respimat INH INH SCH ×6 (04:43→23:11)
[2018-05-18] MEDS: FUROSEMIDE 40 MG in SYRINGE 0 ML IV SCH ×4 (06:05→23:11)
[2018-05-18 06:31] LABS: Basophils # (auto) 0.06 K/uL (0-0.2); Basophils % (auto) 0.9 %; Eosinophils # (auto) 0.23 K/uL (0-0.5); Eosinophils % (auto) 3.5 %; Hematocrit (blood only) 39.5 % (42-52); Immature Granulocytes # (auto) 0.01 K/uL (0.00-0.02); Immature Granulocytes % (auto) 0.2 %; Lymphocytes # (auto) 0.71 K/uL (1.2-3.4); Lymphocytes % (auto) 10.8 %; Mean Corpuscular Hgb Conc 32.9 g/dL (32-36); Mean Platelet Volume 9.7 fL (7.4-10.4); Monocytes # (auto) 0.68 K/uL (0.11-0.59); Monocytes % (auto) 10.4 %; Neutrophils # (auto) 4.88 K/uL (1.4-6.5); Neutrophils % (auto) 74.2 %; Platelet Count 178 K/uL (130-400); RDW Coefficient of Variation 14.9 % (11.5-14.5); RDW Standard Deviation 50.5 fL (36.4-46.3); Red Blood Count 4.34 M/uL (4.7-6.1); White Blood Count 6.57 K/uL (4.8-10.8)
[2018-05-18 07:07] LABS: Calcium 7.9 mg/dl (8.5-10.1); Creatinine Clr Calc Pharmacy 93.1 ml/min; Est GFR (African American) 91.2; Est GFR (Non-African American) 78.7; Potassium 3.3 mmol/L (3.5-5.1)
[2018-05-18] MEDS ORDERED: POTASSIUM CHLORIDE 20 MEQ TABCR PO ONE (08:30)
[2018-05-18] MEDS ORDERED: PERFLUTREN LIPID MICROSPHERE (DEFINITY) IV ONE (08:52)
[2018-05-18] MEDS: LISINOPRIL 20 MG TAB PO SCH (09:19)
[2018-05-18] MEDS: FLUTICASONE/SALMETEROL 250/50 (ADVAIR) 14 PUFF/1 INHALER INH SCH ×2 (09:19→20:27)
[2018-05-18] MEDS: POTASSIUM CHLORIDE 20 MEQ TABCR PO SCH ×2 (10:17→20:23)
[2018-05-18] MEDS: cefTRIAXone SODIUM 1,000 MG in SODIUM CHLOR 0.9% AD-VAN 50 ML IV SCH (13:00)
--- NOTE | 2018-05-18 15:41 | Cardiology Consultation ---
Date of Consultation May 18, 2018 Assessment & Plan (1) Acute on chronic systolic CHF (congestive heart failure): He appears to be significantly hypervolemic, likely secondary to the fact that he has been noncompliant with medical therapy. Current diuretic dose appears reasonable as long as he continues to diurese. Would try to achieve at least 2 L negative fluid balance each day. If current diuretic regimen does not achieve this goal, would recommend increasing Lasix to 80 mg, or could also consider a Lasix drip. We discussed importance of a low-sodium diet. Check daily weights. Strict I&Os. Azul Johnson of the Heart failure program was asked to meet with him today so that she can be involved in his discharge process as well as follow-up care. Replete potassium as appropriate. Will defer potassium supplementation to primary service. (2) CAD (coronary artery disease), [place] coronary artery: No angina. He is not on aspirin secondary to aspirin allergy. Will resume beta-giles therapy in the form of metoprolol succinate 50 mg daily. His home doses 200 mg daily but he was significantly bradycardic this morning. Can further titrate beta-gilse as tolerated.Continue high-intensity statin therapy. (3) Tobacco abuse: Recommended that he stop smoking. (4) Hypertension: Blood pressure has been normotensive to mildly hypertensive. This should improve with further diuresis. Continue MAIKOL-inhibitor. Resume beta-giles if no contraindications. (5) Ventricular tachycardia: He gives a history of syncope without beta-giles therapy. He does have nonsustained ventricular tachycardia. Resume metoprolol succinate at lower dose , 50 mg once daily. This can be further titrated if his heart rate allows. (6) Ischemic cardiomyopathy: Image quality for echocardiogram was poor. LV systolic function appeared to be mildly reduced when visualized. Continue MAIKOL-inhibitor. Resume beta- giles as above. Disposition: Dr. Allen was contacted and we discussed patient care. I will be away from the hospital for the next [address] Zamarripa will be available for any assistance. Please call him for questions or concerns. Dr. Skelton will resume his cardiology care when he returns next week. Close follow-up with heart failure transitional program recommended. Thank you for allowing me to participate in the care of your patient. Please call for any other questions or concerns. Sincerely, Zain Strange M.D. History of Present Illness Reason for Consultation: Acute on chronic CHF Requesting Physician: Dr. Callejas Attending Physician: Gaston Allen DO History of Present Illness Mr. Gallego is a pleasant 73-year-old gentleman with a history significant for CAD status post CABG x2 in 2000, ischemic cardiomyopathy, COPD, syncope, systolic CHF, and hypertension. His primary neurophysiological technician is Dr. Skelton. He is not compliant with medical therapy or follow-up. He was last seen in the cardiology office on 04/20/2017. He did not show up for scheduled echo in June 2017, follow-up with Dr. Skelton in June of 2017, and then canceled his reschedule appointment in August of 2017 both for his echo and appointment with Dr. Skelton. He was last hospitalized for heart failure in December of 2017. He was diuresed and negative fluid balance of 2.5 L during a 2-3 hospital day stay. Since that time, he has not been compliant with medical therapy. He reports taking Combivent, Advair, as well as beta-giles. He does not believe that he has been taking his diuretic but cannot recall how long it has been since he took his diuretic. He states that he is having difficulty obtaining his medications from a financial standpoint. He maintains a low-sodium diet. He weighs himself and has gained approximately 40 -45 lb. He has noted increased lower extremity edema, orthopnea, PND, dyspnea with exertion. He denies chest pain, syncope, near-syncope, palpitations, melena, hematochezia. He has had occasional hematuria. He diuresed negative fluid balance of 2.3 L yesterday with intravenous diuretic therapy in the form of Lasix 40 mg IV Q 6 hours. He has not noted any significant improvement in his presenting symptoms as of yet. Review of systems: As above. Review of systems otherwise negative/ unremarkable. Social history: He smokes occasionally, but not every day. No alcohol or drugs. He lives at home with his . No children. There were no family members present at the bedside. Family history: Father had CAD. Allergies Allergy/AdvReac Type Severity Reaction Status Date / Time aspirin Allergy Severe Hives Verified 05/17/18 13:07 Home Medications Home Medications Medication Instructions Recorded Confirmed Type atorvastatin 80 mg PO HS 01/14/18 05/17/18 History fluticasone-salmeterol [Advair 1 inh INHALATION BID 01/14/18 05/17/18 History Diskus] ipratropium-albuterol [Combivent 1 puff INHALATION Q4 01/14/18 05/17/18 History Respimat] lisinopril 20 mg PO QAM 01/14/18 05/17/18 History metoprolol succinate 200 mg PO QAM 01/14/18 05/17/18 History furosemide [Lasix] 40 mg PO QAM 05/17/18 05/17/18 History umeclidinium [Incruse Ellipta] 1 inh INHALATION QAM 05/17/18 05/17/18 History Patient History Medical History COPD (chronic obstructive pulmonary disease) CHF (congestive heart failure) combined systolic and diastolic, last documented EF 35% CAD (coronary artery disease), [place] coronary artery Hypertension Ischemic cardiomyopathy Surgical History History of heart surgery S/P CABG x 2 Family History Other CAD (coronary artery disease) HTN (hypertension) Social History marital status: Current Living Situation: Spouse Other Information That Helps Us Care for You: No Feels Safe at Home: Yes Safety Concerns: Feels Safe At This Time Smoking Status: Current every day smoker Tobacco Type: cigarettes Do You Dip or Chew Tobacco: No Tobacco Cessation Education Requested by Patient: No Hx Alcohol Use: Yes Alcohol type: beer Alcohol Intake Frequency: a few times a week Hx Substance Use: No Beliefs That Will Affect Care: None Communication Ability: Effective Physical Exam 2 Vital Signs (Past 24 Hours): Last Vital Signs Temp 36.6 C 05/18/18 15:07 Pulse 58 L 05/18/18 15:07 Resp 18 05/18/18 15:07 BP 136/76 05/18/18 15:07 Pulse Ox 95 05/18/18 15:07 Intake & Output 05/16/18 05/17/18 05/18/18 05/19/18 06:59 06:59 06:59 06:59 Intake Total 480 / 480 865 / 865 Output Total 2775 / 2775 675 / 675 Balance -2295 / -2295 190 / 190 Weight 120.3 kg Physical Exam: Gen.: No acute distress. Alert and oriented. HEENT: Anicteric sclera. Neck: Thick neck but JVD alf to the mandible sitting nearly upright. No bruits. Normal carotid upstrokes bilaterally. Cardiac: PMI was nonpalpable . No ventricular heave. Regular with ectopy. Normal S1-S2. No murmurs, rubs, or gallops. Pulmonary: Bilateral expiratory wheezing. Abdomen: Soft, nontender, nondistended, with normoactive bowel sounds. No bruits noted. Extremities: 2+ right radial pulse. Status post left radial artery harvest. 2 + posterior tibialis pulses bilaterally. 3+ bilateral lower extremity edema to the knees. 1+ bilateral lower extremity edema from the knees to the hips. No cyanosis. Psychiatric: Affect appears appropriate. Results & Data Laboratory Results Laboratory Results - last 24 hr 05/18/18 05/18/18 06:00 06:00 WBC 6.57 RBC 4.34 L Hgb 13.0 L Hct 39.5 L MCV 91.0 MCH 30.0 MCHC 32.9 RDW Std Deviation 50.5 H RDW Coeff of Ryanne 14.9 H Plt Count 178 MPV 9.7 Immature Gran % (Auto) 0.2 Neut % (Auto) 74.2 Lymph % (Auto) 10.8 [place] % (Auto) 10.4 Eos % (Auto) 3.5 Baso % (Auto) 0.9 Immature Gran # (Auto) 0.01 Neut # (Auto) 4.88 Lymph # (Auto) 0.71 L [place] # (Auto) 0.68 H Eos # (Auto) 0.23 Baso # (Auto) 0.06 Sodium 139 Potassium 3.3 L D Chloride 104 Carbon Dioxide 29 Anion Gap 6.0 BUN 22 H Creatinine 0.96 Est Cr Clr Drug Dosing 93.1 Est GFR ( Amer) 91.2 Est GFR (Non-Af Amer) 78.7 BUN/Creatinine Ratio 23.0 H Glucose 65 L Calcium 7.9 L Diagnostic Findings Telemetry personally reviewed: Probable sinus rhythm. Sinus bradycardia in the 40s at 7:26 a.m.. Eight beat run of V-tach. Three beat run of V-tach. ECG personally reviewed: ECG 05/17/2018: For probable sinus rhythm with frequent PVCs. Left axis deviation. RBBB. Lateral T-wave inversion. Similar findings compared to 01/13. Chest x-ray 05/17/2018: Stable moderate cardiomegaly. Improved aeration within the lung bases per Radiology. No evidence of pulmonary edema. Echo 05/18/18: LV not well visualized. Probable mildly reduced systolic funcdtion. EF 40-45%. Akinesis of apex, mid to distal inferoseptum, and distal inferior wall. Otherwise, global HK with relative sparing of base to mid anterolateral wall. Dilated RV with reduced systolic function. Moderate left atrial dilation. Severe right atrial dilation. Valves were not well seen. No significant . Medications Administered Current Inpatient Medications Acetaminophen (Tylenol) 650 mg PO Q4H PRN PRN Reason: Pain or Fever Stop: 06/16/18 16:06 Albuterol (Combivent Respimat) 1 puffs INH Q4 [facility] Stop: 06/16/18 16:06 Last Admin: 05/18/18 12:05 Dose: 1 puffs Atorvastatin Calcium (Lipitor) 80 mg PO HS [facility] Stop: 06/16/18 20:59 Last Admin: 05/17/18 20:34 Dose: 80 mg Enoxaparin Sodium (Lovenox) 40 mg SQ Q24H [facility] Stop: 06/16/18 17:59 Last Admin: 05/17/18 19:13 Dose: 40 mg Furosemide 40 mg/ Syringe 4 mls @ 4 mls/min IV Q6H [facility] Stop: 06/16/18 17:59 Last Admin: 05/18/18 12:04 Dose: 4 mls/min Ceftriaxone Sodium 1,000 mg/ (Sodium Chloride) 50 mls @ 100 mls/hr IV Q24H [facility] Stop: 05/28/18 13:59 Last Infusion: 05/18/18 13:35 Dose: Infused Lisinopril (Zestril) 20 mg PO QAM [facility] Stop: 06/17/18 08:59 Last Admin: 05/18/18 09:19 Dose: 20 mg Metoprolol Succinate (Toprol Xl) 50 mg PO QAM [facility] Stop: 06/18/18 08:59 Miscellaneous (Order Awaiting Action) 1 ea N/A QS [facility] Stop: 06/16/18 15:59 Last Admin: 05/18/18 08:06 Dose: Not Given Ondansetron HCl (Zofran) 4 mg IV Q6H PRN PRN Reason: Nausea Stop: 06/16/18 16:06 Polyethylene Glycol (Miralax Powder Packet) 17 gm PO DAILY PRN PRN Reason: Constipation Stop: 06/16/18 16:06 Potassium Chloride (Klor-Con M20) 20 meq PO BID [facility] Stop: 06/17/18 08:59 Last Admin: 05/18/18 10:17 Dose: 20 meq Fluticasone/Salmeterol (Advair Diskus 250/50) 1 puffs INH BID [facility] Stop: 06/16/18 20:59 Last Admin: 05/18/18 09:19 Dose: 1 puffs
--- NOTE | 2018-05-18 17:32 | Family Medicine Progress Note ---
Date of Service May 18, 2018 Assessment & Plan (1) Acute exacerbation of CHF (congestive heart failure): 73 y/o M with PMH Heart Failure, COPD, HTN, HLD presents with an acute CHF exacerbation and cellulitis of LLE. 1) Acute exacerbation of CHF -significantly hypervolemic, likely 2/2 noncompliance with meds -cont IV Lasix 40 mg q6. If not diuresing well (~2 L/day), then increase to 80 mg, or consider drip, per Cards recs -Cont daily I/O's, wt checks, low-sodium diet, fluid restiction -Heart failure program on outpt -continue Lisinopril. Metoprolol reduced to 50 mg from 200 daily 2/2 bradycardia -ECHO- Image quality for echocardiogram was poor. LV systolic function appeared to be mildly reduced when visualized -CM consulted over concern that patient cannot be in charge of his medications-- > pt declined home nursing. On d/c, will have to have very clear/concrete instructions and f/u plans. 2) CAD -No ACS s/s at present. No ASA 2/2 to allergy. Cont metoprolol as above and atorvastatin 80 mg 3) HTN -stable. Cont metoprolol and lisinopril 20 mg qAM 4) Cellulitis -cont IV Rocephin, cont monitor improvement 5) COPD -stable -cont Incruse Ellipta, Combivent, Advair 6) Arrhythmia -tele demonstrates nonsustained ventricular tachycardia -cont metoprolol as above , titrate if his heart rate allows moving forward 7) Tobacco abuse -cont couseling on cessation FULL DVT prophylaxis: Lovenox Dispo: Tele Supervising Physician Co-Signing Physician Notes I personally examined the patient and verified all yoo points of history and exam, discussed case, and agree with decision making with Dr Dailey. Swollen, breathing a little better than when he came in Vitals noted, in general he is awake alert and oriented x3 pleasant no distress. Breathing shows diminished lung sounds bibasilar with rales about a third of the way up, clear at the top Acute on chronic systolic CHF�appearing to be almost entirely due to a combination of med and lifestyle noncompliance. We tried to discuss barriers to care, but he is entirely fixated on his insurance change from [employer] to whatever he has now, and that they wanted to get into his bank account for the mail order. We tried to discuss different options on things we tried to discuss cost of meds we tried to discuss outpatient utilization, as well as stressed the importance of staying on his meds, but he was also in that respect fixated entirely on talking about his inhalers not the rest of his meds. As far as his acute exacerbation, he is diuresing nicely we will continue current and try to educate/breakdown barriers while he is here. Subjective 73 y/o M found in bed this AM in NAD. Pt seems to have difficulty ascertaining what exactly brought him into hospital, seems aloof as to medication regimen. Underlying dementia? Otherwise, no issues voiding, ambulating. Tolerating PO intake. Pt has no other acute concerns or complaints. Review of Systems All systems reviewed & are unremarkable except as noted in HPI & below Physical Exam 2 Vital Signs (Past 24 Hours): Last Vital Signs Temp 36.6 C 05/18/18 15:07 Pulse 58 L 05/18/18 15:07 Resp 18 05/18/18 15:07 BP 136/76 05/18/18 15:07 Pulse Ox 95 05/18/18 15:07 Constitutional: WD/WN, vitals as above Eyes: PERRL, conjunctivae normal, anicteric sclerae ENMT: external ear and nose normal, oropharynx normal Respiratory: rales at bases b/l Cardiovascular: RRR, no murmur, no edema Gastrointestinal (Abdomen): normal bowel sounds, soft, nontender, no hepatosplenomegaly Skin: L LE medially warm, red, mottled appearance Psychiatric: A+Ox3, euthymic affect Insight: + poor insight Judgement: + limited judgement Lymphatic: LE edema b/l Results & Data Laboratory Results Laboratory Results - last 24 hr 05/18/18 05/18/18 06:00 06:00 WBC 6.57 RBC 4.34 L Hgb 13.0 L Hct 39.5 L MCV 91.0 MCH 30.0 MCHC 32.9 RDW Std Deviation 50.5 H RDW Coeff of [place] 14.9 H Plt Count 178 MPV 9.7 Immature Gran % (Auto) 0.2 Neut % (Auto) 74.2 Lymph % (Auto) 10.8 [place] % (Auto) 10.4 Eos % (Auto) 3.5 Baso % (Auto) 0.9 Immature Gran # (Auto) 0.01 Neut # (Auto) 4.88 Lymph # (Auto) 0.71 L [place] # (Auto) 0.68 H Eos # (Auto) 0.23 Baso # (Auto) 0.06 Sodium 139 Potassium 3.3 L D Chloride 104 Carbon Dioxide 29 Anion Gap 6.0 BUN 22 H Creatinine 0.96 Est Cr Clr Drug Dosing 93.1 Est GFR ( Amer) 91.2 Est GFR (Non-Af Amer) 78.7 BUN/Creatinine Ratio 23.0 H Glucose 65 L Calcium 7.9 L Medications Administered Current Inpatient Medications Acetaminophen (Tylenol) 650 mg PO Q4H PRN PRN Reason: Pain or Fever Stop: 06/16/18 16:06 Albuterol (Combivent Respimat) 1 puffs INH Q4 [facility] Stop: 06/16/18 16:06 Last Admin: 05/18/18 16:17 Dose: 1 puffs Atorvastatin Calcium (Lipitor) 80 mg PO HS [facility] Stop: 06/16/18 20:59 Last Admin: 05/17/18 20:34 Dose: 80 mg Enoxaparin Sodium (Lovenox) 40 mg SQ Q24H [facility] Stop: 06/16/18 17:59 Last Admin: 05/17/18 19:13 Dose: 40 mg Furosemide 40 mg/ Syringe 4 mls @ 4 mls/min IV Q6H [facility] Stop: 06/16/18 17:59 Last Admin: 05/18/18 12:04 Dose: 4 mls/min Ceftriaxone Sodium 1,000 mg/ (Sodium Chloride) 50 mls @ 100 mls/hr IV Q24H [facility] Stop: 05/28/18 13:59 Last Infusion: 05/18/18 13:35 Dose: Infused Lisinopril (Zestril) 20 mg PO QAM [facility] Stop: 06/17/18 08:59 Last Admin: 05/18/18 09:19 Dose: 20 mg Metoprolol Succinate (Toprol Xl) 50 mg PO QAM [facility] Stop: 06/18/18 08:59 Miscellaneous (Order Awaiting Action) 1 ea N/A QS [facility] Stop: 06/16/18 15:59 Last Admin: 05/18/18 16:16 Dose: Not Given Ondansetron HCl (Zofran) 4 mg IV Q6H PRN PRN Reason: Nausea Stop: 06/16/18 16:06 Polyethylene Glycol (Miralax Powder Packet) 17 gm PO DAILY PRN PRN Reason: Constipation Stop: 06/16/18 16:06 Potassium Chloride (Klor-Con M20) 20 meq PO BID [facility] Stop: 06/17/18 08:59 Last Admin: 05/18/18 10:17 Dose: 20 meq Fluticasone/Salmeterol (Advair Diskus 250/50) 1 puffs INH BID [facility] Stop: 06/16/18 20:59 Last Admin: 05/18/18 09:19 Dose: 1 puffs Resident Activity Tracking Resident Involvement: Resident Care Provided Care Provided: Adult [facility] _ (1) Acute exacerbation of CHF (congestive heart failure) Heart failure type: combined systolic and diastolic Qualified Code(s): I50.43 - Acute on chronic combined systolic (congestive) and diastolic ( congestive) heart failure
[2018-05-18] MEDS: ENOXAPARIN INJ 40 MG/0.4 ML SYR SQ SCH (17:33)
[2018-05-18] MEDS: ATORVASTATIN 40 MG TAB PO SCH (20:23)
[2018-05-19] MEDS: IPRATROPIUM BROMIDE/ALBUTEROL respimat INH INH SCH ×6 (03:13→23:13)
[2018-05-19 05:57] LABS: Basophils # (auto) 0.02 K/uL (0-0.2); Basophils % (auto) 0.3 %; Eosinophils # (auto) 0.23 K/uL (0-0.5); Eosinophils % (auto) 3.6 %; Hematocrit (blood only) 39.4 % (42-52); Hemoglobin 13.1 g/dL (14.0-18.0); Immature Granulocytes # (auto) 0.02 K/uL (0.00-0.02); Immature Granulocytes % (auto) 0.3 %; Lymphocytes # (auto) 0.73 K/uL (1.2-3.4); Lymphocytes % (auto) 11.5 %; Mean Corpuscular Hgb Conc 33.2 g/dL (32-36); Mean Corpuscular Volume 89.7 fL (80-100); Mean Platelet Volume 9.8 fL (7.4-10.4); Monocytes # (auto) 0.89 K/uL (0.11-0.59); Neutrophils # (auto) 4.46 K/uL (1.4-6.5); Neutrophils % (auto) 70.3 %; Platelet Count 216 K/uL (130-400); RDW Coefficient of Variation 15.2 % (11.5-14.5); RDW Standard Deviation 49.7 fL (36.4-46.3); Red Blood Count 4.39 M/uL (4.7-6.1); White Blood Count 6.35 K/uL (4.8-10.8)
[2018-05-19] MEDS: FUROSEMIDE 40 MG in SYRINGE 0 ML IV SCH ×4 (06:10→23:13)
[2018-05-19 06:29] LABS: Albumin Globulin Ratio 0.9 (0.9-2); Albumin Level 2.8 gm/dl (3.4-5.0); BUN Creatinine Ratio 17.9 (10-20); Bilirubin,Total 1.1 mg/dl (0.2-1); Est GFR (African American) 78.2; Est GFR (Non-African American) 67.5; Potassium 3.5 mmol/L (3.5-5.1); Total Protein 5.8 gm/dl (6.4-8.2)
[2018-05-19] MEDS: FLUTICASONE/SALMETEROL 250/50 (ADVAIR) 14 PUFF/1 INHALER INH SCH ×2 (07:25→20:47)
[2018-05-19] MEDS: LISINOPRIL 20 MG TAB PO SCH (07:26)
[2018-05-19] MEDS: METOPROLOL SUCC 50MG EXT REL TAB PO SCH (07:26)
[2018-05-19] MEDS: POTASSIUM CHLORIDE 20 MEQ TABCR PO SCH ×2 (07:27→20:48)
--- NOTE | 2018-05-19 09:31 | Family Medicine Progress Note ---
Date of Service May 19, 2018 Assessment & Plan (1) Acute on chronic systolic CHF (congestive heart failure): Mr. Gallego is a 73yo M with a PMHx of HFrEF 40-45%, HTN, and HLD who admitted for acute on chronic CHR exacerbation and LLE cellulitis. Acute on Chronic CHF with EF 40-45% - Diuresing adequately (>2L/day) with lasix 40mg Q6H. Continue 40mg Q6H, may increase to 80mg if needed. - Weight 117.4kg from 124.3 on admit; net -3690mL since admit. - Continues to have evidence of hypervolemia including rales, bilateral leg edema, mild JVD - Continue daily I/O's, wt checks, low-sodium diet, fluid restiction - Will followup with heart failure program on outpt - Continue Lisinopril 20mg daily - Metoprolol reduced to 50 mg from 200 daily 2/2 bradycardia, 60-110's overnight. No syncopal/hypotensive symptoms, although has had ns-VT as noted below. Continue metoprolol 50mg for now, may benefit from increase in other antihypertensives and possible entresto in the future. -ECHO- Image quality for echocardiogram was poor. LV systolic function mildly reduced, EF ~40-45% with apex akineses, global hypoknesis sparing anterolateral wall. Cards consulted, recommend medical management for potential ischemic cardiomyopathy with MAIKOL, BB. -Case management consulted over ability to manage medications. Pt declines home nursing. 2) CAD - No angina, no symptoms of ACS - Trop 0.062 - Not on aspirin due to allergy (hives) - Metoprolol as below as above - Atorvastatin 80mg daily HTN - Currently well controlled - Metoprolol as above - Lisinopril as above Cellulitis - Improved today. Mild erythema, no pain, no warmth in LLE - Recommend conversion to oral Keflex 500mg QID for 5-10 day course of tx COPD - No acute exacerbation - Continue umeclidinium daily - Continue Ipratropium-Albuterol 1 puff Q4H - Continue Advair 1 puff twice daily 6) Arrhythmia - Sinus 60s-110s overnight with nonsustained VT - 12 second run of VT this morning, asymptomatic - Continue metoprolol titration as above, titrate to HR - Nonsustained VT in the setting of HFrEF. No VT <30 seconds, no indication for lifevest/ICD at this time. 7) Tobacco abuse - Continue tobacco cessation counseling FULL DVT prophylaxis: Lovenox Dispo: Tele (2) CAD (coronary artery disease), [place] coronary artery: (3) Hypertension: (4) Cellulitis: (5) Arrhythmia: (6) Tobacco abuse: Supervising Physician Co-Signing Physician Notes I personally examined the patient and verified all yoo points of history and exam, discussed case, and agree with decision making with Dr Valdes. Feeling better feeling less swollen breathing better, continue to try to discuss breaking down barriers to have him be able to take care of himself, at this time able to achieve today is that while he felt that he could only get his medications through the mail order pharmacy, he does note that at times he has gotten them from [facility], and I tried to emphasize this could be a way for him to not run out of his meds altogether. He then retorts that the company will not give him his meds unless he gets it through the mail order, I believe this is not the case, but we will further discussions Vitals noted, in general he is awake alert oriented pleasant no distress. His swelling is going down. His lungs show better air entry and with that better air entry well but he is no longer diminished at the bases he has rales at the bases, and a little bit of a wet sounding wheeze predominantly on the left Acute on chronic systolic CHF� -continue acute diuresis -Work on ways for better compliance at home -Review and consider adjusting med management (possibly titrate ACEs and arbs, spironolactone, possibly Entresto.) Otherwise as above Subjective Mr. Gallego reports he felt OK overnight. Sitting up in bed in NAD. Reports he has been peeing well overnight. Feels his breathing is a little better today than yesterday after his morning medications Denies chest pain, chest pressure, dizziness, syncope, presyncope, vertigo Endorses mild lightheadedness while standing suddenly this morning which resolved in less than a minute, otherwise no lightheadedness. No fevers, chills, sweats No leg pain Endorses chronic leg swelling, improved from yesterday No abdominal pain, nausea, vomiting, diarrhea Voices no questions or concerns at time of visit Telemetry reports 12 second run of non-sustained VT. Several smaller runs of VT , asympatomatic. Review of Systems All systems reviewed & are unremarkable except as noted in HPI & below Physical Exam 2 Vital Signs (Past 24 Hours): Last Vital Signs Temp 36.6 C 05/19/18 06:59 Pulse 72 05/19/18 06:59 Resp 20 05/19/18 06:59 BP 121/70 05/19/18 06:59 Pulse Ox 93 05/19/18 06:59 Physical Exam: General: A&Ox3. NAD. Cooperative. HEENT: Atraumatic, normocephalic. Pulm: Light rales LLL>RLL. on room air. Symmetrical chest rise. No increase work of breathing. No respiratory distress. Cardiac: RRR, -mrg. Radial pulses intact and symmetrical.VD present to 1-2cm below the angle of the mandible. Abdominal: Nontender, nondistended, soft. BS present. Extremity: 2-3+ pitting edema to the knee bilaterally. RLE with chonic venous stasis, no erythema, no warmth, nontender. LLE with mild erythema, no warmth, nontender. Results & Data Laboratory Results Abnormal lab results 05/19/18 05/19/18 Range/Units 05:14 05:14 RBC 4.39 L (4.7-6.1) M/uL Hgb 13.1 L (14.0-18.0) g/dL Hct 39.4 L (42-52) % RDW Std Deviation 49.7 H (36.4-46.3) fL RDW Coeff of Ryanne 15.2 H (11.5-14.5) % Lymph # (Auto) 0.73 L (1.2-3.4) K/uL [place] # (Auto) 0.89 H (0.11-0.59) K/uL BUN 19 H (7-18) mg/dl Calcium 8.0 L (8.5-10.1) mg/dl Total Bilirubin 1.1 H (0.2-1) mg/dl Total Protein 5.8 L (6.4-8.2) gm/dl Albumin 2.8 L (3.4-5.0) gm/dl Medications Administered Current Inpatient Medications Acetaminophen (Tylenol) 650 mg PO Q4H PRN PRN Reason: Pain or Fever Stop: 06/16/18 16:06 Albuterol (Combivent Respimat) 1 puffs INH Q4 [facility] Stop: 06/16/18 16:06 Last Admin: 05/19/18 07:25 Dose: 1 puffs Atorvastatin Calcium (Lipitor) 80 mg PO HS [facility] Stop: 06/16/18 20:59 Last Admin: 05/18/18 20:23 Dose: 80 mg Enoxaparin Sodium (Lovenox) 40 mg SQ Q24H [facility] Stop: 06/16/18 17:59 Last Admin: 05/18/18 17:33 Dose: 40 mg Furosemide 40 mg/ Syringe 4 mls @ 4 mls/min IV Q6H [facility] Stop: 06/16/18 17:59 Last Admin: 05/19/18 06:10 Dose: 4 mls/min Ceftriaxone Sodium 1,000 mg/ (Sodium Chloride) 50 mls @ 100 mls/hr IV Q24H [facility] Stop: 05/28/18 13:59 Last Infusion: 05/18/18 13:35 Dose: Infused Lisinopril (Zestril) 20 mg PO QAM [facility] Stop: 06/17/18 08:59 Last Admin: 05/19/18 07:26 Dose: 20 mg Metoprolol Succinate (Toprol Xl) 50 mg PO QAM [facility] Stop: 06/18/18 08:59 Last Admin: 05/19/18 07:26 Dose: 50 mg Miscellaneous (Order Awaiting Action) 1 ea N/A QS [facility] Stop: 06/16/18 15:59 Last Admin: 05/18/18 23:11 Dose: Not Given Ondansetron HCl (Zofran) 4 mg IV Q6H PRN PRN Reason: Nausea Stop: 06/16/18 16:06 Polyethylene Glycol (Miralax Powder Packet) 17 gm PO DAILY PRN PRN Reason: Constipation Stop: 06/16/18 16:06 Potassium Chloride (Klor-Con M20) 20 meq PO BID [facility] Stop: 06/17/18 08:59 Last Admin: 05/19/18 07:27 Dose: 20 meq Fluticasone/Salmeterol (Advair Diskus 250/50) 1 puffs INH BID [facility] Stop: 06/16/18 20:59 Last Admin: 05/19/18 07:25 Dose: 1 puffs Resident Activity Tracking Resident Involvement: Resident Care Provided Care Provided: Adult Hospital Medicine
--- NOTE | 2018-05-19 11:21 | Cardiology Progress Note ---
Date of Service May 19, 2018 Assessment & Plan (1) Acute on chronic systolic CHF (congestive heart failure): He still has an element of edema, but appears to be diuresing well on the current medical regimen. Renal function and electrolytes appear stable. I think continuing this current regimen monitoring these factors closely would be reasonable. Clinically improved. (2) CAD (coronary artery disease), [place] coronary artery: No angina. He is not on aspirin secondary to aspirin allergy. Patient on lower dose of beta-giles currently. Overall heart rates appear adequate. (3) Tobacco abuse: Recommended that he stop smoking. (4) Hypertension: Overall blood pressures improved. Continue current medical regimen. (5) Ventricular tachycardia: Some nonsustained VT overnight. Continue beta-blockade. Will continue monitoring on telemetry. (6) Ischemic cardiomyopathy: Will continue on beta-blockade and Steve inhibition. He has mildly reduced LV systolic function. Based on his ejection fraction, he does not meet criteria for implantation of an ICD for primary prevention. In the setting of syncope with intermediate degrees of LV dysfunction, electrophysiologic testing could be done in order to further risk stratify him for an ICD. Subjective This morning the patient did complain of some reflux, but otherwise was feeling well. Did not report difficulty sleeping. Feels that his leg edema has improved. He has an occasional cough. Overall he claims to be feeling better versus yesterday. Physical Exam 2 Vital Signs (Past 24 Hours): Last Vital Signs Temp 36.6 C 05/19/18 06:59 Pulse 72 05/19/18 06:59 Resp 20 05/19/18 06:59 BP 121/70 05/19/18 06:59 Pulse Ox 93 05/19/18 06:59 Physical Exam: The patient is alert and oriented. Mood and affect appeared normal. He answered all questions appropriately. HEENT: Pupils are equal and reactive to light and accommodation. Extraocular movements are intact. The sclerae are anicteric. Neuro: Cranial nerves intact Neck: Patient's neck is supple. He has palpable carotid pulses bilaterally without bruits on auscultation. The thyroid is not enlarged. Lungs: Occasional crackle in the base with some mild expiratory wheezing. Cardiac: Heart demonstrates a regular rate and rhythm. Occasional ectopy. Pulses: The patient has palpable radial pulses bilaterally that are equal in intensity Extremities: There was no evidence of hypoperfusion. There is no cyanosis or clubbing. He has marked edema in the lower extremities with erythema on both lower legs. Skin: I did not appreciate any rashes on examination today. Results & Data Laboratory Results Abnormal Lab Results 05/19/18 05/19/18 05:14 05:14 WBC 6.35 RBC 4.39 L Hgb 13.1 L Hct 39.4 L MCV 89.7 MCH 29.8 MCHC 33.2 RDW Std Deviation 49.7 H RDW Coeff of [place] 15.2 H Plt Count 216 MPV 9.8 Immature Gran % (Auto) 0.3 Neut % (Auto) 70.3 Lymph % (Auto) 11.5 [place] % (Auto) 14.0 Eos % (Auto) 3.6 Baso % (Auto) 0.3 Immature Gran # (Auto) 0.02 Neut # (Auto) 4.46 Lymph # (Auto) 0.73 L [place] # (Auto) 0.89 H Eos # (Auto) 0.23 Baso # (Auto) 0.02 Sodium 140 Potassium 3.5 Chloride 102 Carbon Dioxide 32 Anion Gap 6.0 BUN 19 H Creatinine 1.09 Est Cr Clr Drug Dosing 81.0 Est GFR ( Amer) 78.2 Est GFR (Non-Af Amer) 67.5 BUN/Creatinine Ratio 17.9 Glucose 86 Calcium 8.0 L Total Bilirubin 1.1 H AST 21 ALT 16 Alkaline Phosphatase 94 Total Protein 5.8 L Albumin 2.8 L Globulin 3.0 Albumin/Globulin Ratio 0.9 Specimen Hemolysis ECG Additional Comments: Telemetry did demonstrate an episode of nonsustained ventricular tachycardia
[2018-05-19] MEDS: cefTRIAXone SODIUM 1,000 MG in SODIUM CHLOR 0.9% AD-VAN 50 ML IV SCH (14:40)
[2018-05-19] MEDS: ENOXAPARIN INJ 40 MG/0.4 ML SYR SQ SCH (17:09)
[2018-05-19] MEDS: cephALEXin 500 MG CAP PO SCH (20:47)
[2018-05-19] MEDS: ATORVASTATIN 40 MG TAB PO SCH (20:48)
[2018-05-20] MEDS: IPRATROPIUM BROMIDE/ALBUTEROL respimat INH INH SCH ×5 (03:39→20:18)
[2018-05-20] MEDS: FUROSEMIDE 40 MG in SYRINGE 0 ML IV SCH ×3 (05:13→15:59)
[2018-05-20 07:17] LABS: Mean Corpuscular Hgb Conc 32.6 g/dL (32-36); Mean Corpuscular Volume 90.7 fL (80-100); Mean Platelet Volume 9.5 fL (7.4-10.4); Platelet Count 225 K/uL (130-400); RDW Coefficient of Variation 15.4 % (11.5-14.5); RDW Standard Deviation 51.2 fL (36.4-46.3); Red Blood Count 4.74 M/uL (4.7-6.1); White Blood Count 6.13 K/uL (4.8-10.8)
[2018-05-20] MEDS: FLUTICASONE/SALMETEROL 250/50 (ADVAIR) 14 PUFF/1 INHALER INH SCH ×2 (07:41→20:20)
[2018-05-20] MEDS: METOPROLOL SUCC 50MG EXT REL TAB PO SCH (07:42)
[2018-05-20] MEDS: cephALEXin 500 MG CAP PO SCH ×4 (07:42→20:20)
[2018-05-20] MEDS: LISINOPRIL 20 MG TAB PO SCH (07:42)
[2018-05-20 07:43] LABS: BUN Creatinine Ratio 16.8 (10-20); Calcium 8.9 mg/dl (8.5-10.1); Creatinine Clr Calc Pharmacy 86.4 ml/min; Est GFR (African American) 85.7; Potassium 4.3 mmol/L (3.5-5.1)
[2018-05-20] MEDS: POTASSIUM CHLORIDE 20 MEQ TABCR PO SCH ×2 (07:43→20:19)
--- NOTE | 2018-05-20 10:34 | Cardiology Progress Note ---
Date of Service May 20, 2018 Assessment & Plan (1) Acute on chronic systolic CHF (congestive heart failure): He is affecting a very aggressive diuresis. While his renal function is stable, I think his overall diuretic dose could be reduced to perhaps 40 milligrams of Lasix twice daily. He has had some subjective and objective improvement in his edema. (2) CAD (coronary artery disease), [place] coronary artery: No angina. He is not on aspirin secondary to aspirin allergy. Patient on lower dose of beta-giles currently. Overall heart rates appear adequate. (3) Tobacco abuse: Recommended that he stop smoking. (4) Hypertension: Overall blood pressures improved. Continue current medical regimen. (5) Ventricular tachycardia: Some nonsustained VT overnight. Continue beta-blockade. Will continue monitoring on telemetry. (6) Ischemic cardiomyopathy: Will continue on beta-blockade and Steve inhibition. He has mildly reduced LV systolic function. Based on his ejection fraction, he does not meet criteria for implantation of an ICD for primary prevention. In the setting of syncope with intermediate degrees of LV dysfunction, electrophysiologic testing could be done in order to further risk stratify him for an ICD. Subjective This morning the patient claims to be feeling better. He states that he is feeling improved from admission with respect to breathing and lower extremity edema. He is tolerating regular diet. He has been ambulatory around his room without significant dizziness or lightheadedness. Physical Exam 2 Vital Signs (Past 24 Hours): Last Vital Signs Temp 36.5 C 05/20/18 10:30 Pulse 46 L 05/20/18 10:30 Resp 19 05/20/18 10:30 BP 132/72 05/20/18 10:30 Pulse Ox 96 05/20/18 10:30 Physical Exam: The patient is alert and oriented. Mood and affect appeared normal. He answered all questions appropriately. HEENT: Pupils are equal and reactive to light and accommodation. Extraocular movements are intact. The sclerae are anicteric. Neuro: Cranial nerves intact There is no evidence of jugular venous distention. The thyroid is not enlarged. Lungs: Occasional crackles at the bases bilaterally. Cardiac: Heart demonstrates a regular rate and rhythm with frequent ectopy per. Normal S1 and S2. Pulses: The patient has palpable radial pulses bilaterally that are equal in intensity Extremities: There was no evidence of hypoperfusion. There is no cyanosis or clubbing. Moderate bilateral lower extremity edema. Skin: I did not appreciate any rashes on examination today. He has some trophic changes on his lower extremities bilaterally Results & Data Laboratory Results Abnormal Lab Results 05/20/18 05/20/18 06:57 06:57 WBC 6.13 RBC 4.74 Hgb 14.0 Hct 43.0 MCV 90.7 MCH 29.5 MCHC 32.6 RDW Std Deviation 51.2 H RDW Coeff of [place] 15.4 H Plt Count 225 MPV 9.5 Sodium 138 Potassium 4.3 D Chloride 97 L Carbon Dioxide 35 H Anion Gap 6.0 BUN 17 Creatinine 1.01 Est Cr Clr Drug Dosing 86.4 Est GFR ( Amer) 85.7 Est GFR (Non-Af Amer) 74.0 BUN/Creatinine Ratio 16.8 Glucose 88 Calcium 8.9 ECG Additional Comments: Review of telemetry reveals a few beats of ventricular tachycardia which occurred around midnight.
--- NOTE | 2018-05-20 14:31 | Family Medicine Progress Note ---
Date of Service May 20, 2018 Assessment & Plan (1) Acute on chronic systolic CHF (congestive heart failure): Mr. Gallego is a 73yo M with a PMHx of HFrEF 40-45%, HTN, and HLD who admitted for acute on chronic CHR exacerbation and LLE cellulitis. Acute on Chronic CHF with EF 40-45% - Diuresing aggressively with lasix 40mg Q6H. Decreased to 40mg BID, may increase to Q6H or 80mg BID if UOP becomes inadequate. Kidney function tolerating. - Weight 117.4kg from 124.3 on admit; net -3690mL since admit. - Continues to have evidence of hypervolemia including rales, bilateral leg edema, mild JVD, although improved from yesterday - Continue daily I/O's, wt checks, low-sodium diet, fluid restiction - Will followup with heart failure program on outpt - Continue Lisinopril 20mg daily - Metoprolol reduced to 50 mg from 200 daily 2/2 bradycardia, 57-90 overnight. No syncopal/hypotensive symptoms, although has had ns-VT as noted below. Continue metoprolol 50mg for now, may benefit from increase in other antihypertensives and possible entresto in the future. -ECHO- Image quality for echocardiogram was poor. LV systolic function mildly reduced, EF ~40-45% with apex akineses, global hypoknesis sparing anterolateral wall. Cards consulted, recommend medical management for potential ischemic cardiomyopathy with MAIKOL, BB. -Case management consulted over ability to manage medications. Pt declines home nursing. 2) CAD - No angina, no symptoms of ACS - Chronic mild elevation in trop at baseline - Not on aspirin due to allergy (hives) - Metoprolol as below as above - Atorvastatin 80mg daily HTN - Currently well controlled - Metoprolol as above - Lisinopril as above Cellulitis - Improved today. Mild erythema, no pain, no warmth in LLE - Continue Keflex 500mg QID for 5-10 day course of tx COPD - No acute exacerbation - Continue umeclidinium daily - Continue Ipratropium-Albuterol 1 puff Q4H - Continue Advair 1 puff twice daily 6) Arrhythmia - Sinus with nonsustained VT - 12 second run of VT 05/20, asymptomatic - Continue metoprolol titration as above, titrate to HR - Nonsustained VT in the setting of HFrEF. No VT <30 seconds, no indication for lifevest/ICD at this time. Per cards EF does not meet criteria for ICD, could electrophysiologic testing could be considered in the future to risk stratify. 7) Tobacco abuse - Continue tobacco cessation counseling FULL DVT prophylaxis: Lovenox Dispo: Tele (2) CAD (coronary artery disease), [place] coronary artery: (3) Hypertension: (4) Cellulitis: (5) Arrhythmia: (6) Tobacco abuse: Supervising Physician Co-Signing Physician Notes I personally examined the patient and verified all yoo points of history and exam, discussed case, and agree with decision making with Dr Valdes. Breathing better and swelling goes down. Vitals noted, in general he is awake alert oriented pleasant no distress. His swelling continues to go down. Lungs may be faint basilar rales otherwise clear. Acute on chronic systolic CHF� -continue acute diuresis until he shows euvolemic, or his creatinine starts to rise -Continue to work on ways for better compliance at home, although he seems to present significant roadblocks. -Continue to review and consider adjusting med management (possibly titrate ACEs and arbs, spironolactone, possibly Entresto.) Otherwise as above Subjective Mr. Gallego feels similar to yesterday, maybe a little improved. Thinks the swelling in his legs is a little better. Still having some shortness of breath, but has been getting out of bed more to walk around whereas he felt more limited to bed yesterday. No shortness of breath/chest pain/dyspnea at time of visit. No fevers, chills, night sweats. No leg pain, leg tenderness. Endorses continued leg swelling. Endorses occasional cough productive for clear mucous. Denies abdominal pain, nausea/vomiting/diarrhea/constipation. no episodes of incontinence overnight. Peeing well without dysuria. No questions or concerns at time of visit. Review of Systems See HPI Physical Exam 2 Vital Signs (Past 24 Hours): Last Vital Signs Temp 36.8 C 05/20/18 07:19 Pulse 62 05/20/18 07:19 Resp 20 05/20/18 07:19 BP 130/65 05/20/18 07:19 Pulse Ox 91 05/20/18 03:34 Physical Exam: General: A&Ox3. NAD. Cooperative. HEENT: Atraumatic, normocephalic. Pulm: Light rales bilaterally. On room air. Symmetrical chest rise. No increase work of breathing. No respiratory distress. Cardiac: RRR, -mrg. Radial pulses intact and symmetrical.VD present to 2-3cm below the angle of the mandible, slightly improved from yesterday. Abdominal: Nontender, nondistended, soft. BS present. Extremity: 2+ pitting edema to the knee bilaterally. RLE with chonic venous stasis, no erythema, no warmth, nontender. LLE with mild erythema, improved from yesterday, and without warmth + nontender. Results & Data Laboratory Results 05/20/18 05/20/18 Range/Units 06:57 06:57 WBC 6.13 (4.8-10.8) K/uL RBC 4.74 (4.7-6.1) M/uL Hgb 14.0 (14.0-18.0) g/dL Hct 43.0 (42-52) % MCV 90.7 (80-100) fL MCH 29.5 (25-34) pg MCHC 32.6 (32-36) g/dL RDW Std Deviation 51.2 H (36.4-46.3) fL RDW Coeff of [place] 15.4 H (11.5-14.5) % Plt Count 225 (130-400) K/uL MPV 9.5 (7.4-10.4) fL Sodium 138 (136-145) mmol/L Potassium 4.3 D (3.5-5.1) mmol/L Chloride 97 L (98-107) mmol/L Carbon Dioxide 35 H (21-32) mmol/L Anion Gap 6.0 (3-11) BUN 17 (7-18) mg/dl Creatinine 1.01 (0.6-1.4) mg/dl Est Cr Clr Drug Dosing 86.4 ml/min Est GFR ( Amer) 85.7 Est GFR (Non-Af Amer) 74.0 BUN/Creatinine Ratio 16.8 (10-20) Glucose 88 (70-99) mg/dl Calcium 8.9 (8.5-10.1) mg/dl Medications Administered Current Inpatient Medications Acetaminophen (Tylenol) 650 mg PO Q4H PRN PRN Reason: Pain or Fever Stop: 06/16/18 16:06 Albuterol (Combivent Respimat) 1 puffs INH Q4 [facility] Stop: 06/16/18 16:06 Last Admin: 05/20/18 11:57 Dose: 1 puffs Atorvastatin Calcium (Lipitor) 80 mg PO HS [facility] Stop: 06/16/18 20:59 Last Admin: 05/19/18 20:48 Dose: 80 mg Cephalexin HCl (Keflex) 500 mg PO QID [facility]; Protocol Stop: 05/29/18 20:59 Last Admin: 05/20/18 11:58 Dose: 500 mg Enoxaparin Sodium (Lovenox) 40 mg SQ Q24H [facility] Stop: 06/16/18 17:59 Last Admin: 05/19/18 17:09 Dose: 40 mg Furosemide 40 mg/ Syringe 4 mls @ 4 mls/min IV Q6H [facility] Stop: 06/16/18 17:59 Last Admin: 05/20/18 11:58 Dose: 4 mls/min Lisinopril (Zestril) 20 mg PO QAM [facility] Stop: 06/17/18 08:59 Last Admin: 05/20/18 07:42 Dose: 20 mg Metoprolol Succinate (Toprol Xl) 50 mg PO QAM [facility] Stop: 06/18/18 08:59 Last Admin: 05/20/18 07:42 Dose: 50 mg Miscellaneous (Order Awaiting Action) 1 ea N/A QS [facility] Stop: 06/16/18 15:59 Last Admin: 05/19/18 23:14 Dose: Not Given Ondansetron HCl (Zofran) 4 mg IV Q6H PRN PRN Reason: Nausea Stop: 06/16/18 16:06 Polyethylene Glycol (Miralax Powder Packet) 17 gm PO DAILY PRN PRN Reason: Constipation Stop: 06/16/18 16:06 Potassium Chloride (Klor-Con M20) 20 meq PO BID [facility] Stop: 06/17/18 08:59 Last Admin: 05/20/18 07:43 Dose: 20 meq Fluticasone/Salmeterol (Advair Diskus 250/50) 1 puffs INH BID [facility] Stop: 06/16/18 20:59 Last Admin: 05/20/18 07:41 Dose: 1 puffs Resident Activity Tracking Resident Involvement: Resident Care Provided Care Provided: Adult Hospital Medicine
[2018-05-20] MEDS: ENOXAPARIN INJ 40 MG/0.4 ML SYR SQ SCH (16:01)
[2018-05-20] MEDS: ATORVASTATIN 40 MG TAB PO SCH (20:19)
[2018-05-21] MEDS: IPRATROPIUM BROMIDE/ALBUTEROL respimat INH INH SCH ×6 (00:03→21:23)
[2018-05-21 06:05] LABS: Hematocrit (blood only) 41.1 % (42-52); Hemoglobin 13.4 g/dL (14.0-18.0); Mean Corpuscular Hgb Conc 32.6 g/dL (32-36); Mean Corpuscular Volume 90.7 fL (80-100); Mean Platelet Volume 9.8 fL (7.4-10.4); Platelet Count 222 K/uL (130-400); RDW Coefficient of Variation 15.2 % (11.5-14.5); RDW Standard Deviation 50.9 fL (36.4-46.3); Red Blood Count 4.53 M/uL (4.7-6.1); White Blood Count 6.39 K/uL (4.8-10.8)
[2018-05-21 06:41] LABS: BUN Creatinine Ratio 15.7 (10-20); Calcium 8.5 mg/dl (8.5-10.1); Est GFR (African American) 82.7; Est GFR (Non-African American) 71.4; Potassium 4.2 mmol/L (3.5-5.1)
[2018-05-21] MEDS: POTASSIUM CHLORIDE 20 MEQ TABCR PO SCH ×2 (07:59→21:24)
[2018-05-21] MEDS: FUROSEMIDE 40 MG in SYRINGE 0 ML IV SCH ×2 (07:59→17:10)
[2018-05-21] MEDS: cephALEXin 500 MG CAP PO SCH ×4 (07:59→21:24)
[2018-05-21] MEDS: FLUTICASONE/SALMETEROL 250/50 (ADVAIR) 14 PUFF/1 INHALER INH SCH ×2 (08:00→21:23)
[2018-05-21] MEDS: LISINOPRIL 20 MG TAB PO SCH (08:00)
[2018-05-21] MEDS: METOPROLOL SUCC 50MG EXT REL TAB PO SCH (08:00)
--- NOTE | 2018-05-21 15:10 | Family Medicine Progress Note ---
Date of Service May 21, 2018 Assessment & Plan (1) Acute on chronic systolic CHF (congestive heart failure): Mr. Gallego is a 73yo M with a PMHx of HFrEF 40-45%, HTN, and HLD who admitted for acute on chronic CHR exacerbation and LLE cellulitis. Acute on Chronic CHF with EF 40-45% - Diuresing with lasix 40mg BID. Kidney function tolerating. - Weight 112kg from 125.5 on admit; net -9654mL since admit. - Continue daily I/O's, wt checks, low-sodium diet, fluid restiction - Will followup with heart failure program on outpt - Continue Lisinopril 20mg daily - Yesterday, Metoprolol reduced to 50 mg from 200 daily 2/2 bradycardia, 50s overnight. No syncopal/hypotensive symptoms, although has had ns-VT as noted below. Continue metoprolol 50mg for now, may benefit from increase in other antihypertensives and possible entresto in the future. -ECHO- Image quality for echocardiogram was poor. LV systolic function mildly reduced, EF ~40-45% with apex akineses, global hypoknesis sparing anterolateral wall. Cards consulted, recommend medical management for potential ischemic cardiomyopathy with MAIKOL, BB. -Case management consulted over ability to manage medications. Pt declines home nursing. 2) CAD - No angina, no symptoms of ACS - Chronic mild elevation in trop at baseline - Not on aspirin due to allergy (hives) - Metoprolol as below as above - Atorvastatin 80mg daily HTN - Currently well controlled - Metoprolol as above - Lisinopril as above Cellulitis - Improved today. Mild erythema, no pain, no warmth in LLE. Discoloration is post-inflammatory and will be present for likely months. - Continue Keflex 500mg QID for 5-10 day course of tx COPD - No acute exacerbation - Continue umeclidinium daily - Continue Ipratropium-Albuterol 1 puff Q4H - Continue Advair 1 puff twice daily 6) Arrhythmia - Sinus with nonsustained VT - 12 second run of VT 05/20, asymptomatic; 5 beat run of vtach yesterday evening. - Continue metoprolol titration as above, titrate to HR - Nonsustained VT in the setting of HFrEF. No VT <30 seconds, no indication for lifevest/ICD at this time. Per cards EF does not meet criteria for ICD, could electrophysiologic testing could be considered in the future to risk stratify. 7) Tobacco abuse - Continue tobacco cessation counseling FULL DVT prophylaxis: Lovenox Dispo: Tele (2) CAD (coronary artery disease), [place] coronary artery: (3) Hypertension: (4) Cellulitis: (5) Arrhythmia: (6) Tobacco abuse: Supervising Physician Co-Signing Physician Notes I saw the patient with Dr. Simon and confirmed yoo portions of the history and physical exam. According to the chart, he is approaching 30 pounds in fluid weight loss since admission. The patient estimates that his normal "dry" weight is between 230 and 240; admittedly, a wide range, so if we aim for 235, we are looking to drop another 10 pounds. This may be reasonable as despite aggressive diuretics, his kidney function has not bumped. Continue diuresis. Continue antibiotics for cellulitis. Discussed MAIKOL/Aldactone/Entresto as possible additions, but the patient is non compliant with even the basics - Lasix. Discussed this with the patient and seems as if there is some misconceptions regarding his insurance coverage. Subjective Ti states his dyspnea has improved since admission. He states he has not seen improvement in leg swelling or discoloration of lower extremities. He has no chest pain, nausea, vomiting, diarrhea. He continues to urinate without difficulty. He states that he would like to get home medications through mail order as he does not want to pay out of pocket for meds at a local pharmacy. Physical Exam 2 Vital Signs (Past 24 Hours): Last Vital Signs Temp 36.6 C 05/21/18 11:27 Pulse 50 L 05/21/18 11:27 Resp 18 05/21/18 11:27 BP 125/82 05/21/18 11:27 Pulse Ox 94 05/21/18 11:27 Constitutional: WD/WN, vitals as above Eyes: + anicteric sclerae and EOM intact bilaterally Neck: normal visual inspection and trachea midline Respiratory: bilateral coarse breath sounds at posterior bases bilaterally Cardiovascular: Rate/Rhythm: regular rate Vessels: dorsalis pedis pulses present Extremities: + edema (2+ pitting) irregularly irregular rhythm Gastrointestinal (Abdomen): Inspection/Auscultation: normal bowel sounds Percussion/Palpation: abdomen nontender Musculoskeletal: Head/Neck/Chest: normocephalic and head atraumatic Skin: erythema of lower legs of distal 2/3 with pitting edema, no warmth Neurologic: moves all extremities and awake Psychiatric: Orientation: alert and oriented x 3 Affect: euthymic affect Insight: + poor insight Results & Data Laboratory Results Laboratory Results - last 24 hr 05/21/18 05/21/18 05:24 05:24 WBC 6.39 RBC 4.53 L Hgb 13.4 L Hct 41.1 L MCV 90.7 MCH 29.6 MCHC 32.6 RDW Std Deviation 50.9 H RDW Coeff of [place] 15.2 H Plt Count 222 MPV 9.8 Sodium 136 Potassium 4.2 Chloride 96 L Carbon Dioxide 34 H Anion Gap 6.0 BUN 16 Creatinine 1.04 Est Cr Clr Drug Dosing 83.0 Est GFR ( Amer) 82.7 Est GFR (Non-Af Amer) 71.4 BUN/Creatinine Ratio 15.7 Glucose 77 Calcium 8.5 Specimen Hemolysis Medications Administered Albuterol (Combivent Respimat) 1 puffs INH Q4 BENJI Stop: 06/16/18 16:06 Last Admin: 05/21/18 13:09 Dose: 1 puffs Admin: 05/21/18 07:59 Dose: 1 puffs Admin: 05/21/18 03:20 Dose: 1 puffs Admin: 05/21/18 00:03 Dose: 1 puffs Admin: 05/20/18 20:18 Dose: 1 puffs Admin: 05/20/18 15:59 Dose: 1 puffs Admin: 05/20/18 11:57 Dose: 1 puffs Admin: 05/20/18 07:40 Dose: 1 puffs Admin: 05/20/18 03:39 Dose: 1 puffs Admin: 05/19/18 23:13 Dose: 1 puffs Admin: 05/19/18 20:47 Dose: 1 puffs Admin: 05/19/18 16:09 Dose: 1 puffs Admin: 05/19/18 11:27 Dose: 1 puffs Admin: 05/19/18 07:25 Dose: 1 puffs Admin: 05/19/18 03:13 Dose: 1 puffs Admin: 05/18/18 23:11 Dose: 1 puffs Admin: 05/18/18 20:27 Dose: 1 puffs Admin: 05/18/18 16:17 Dose: 1 puffs Admin: 05/18/18 12:05 Dose: 1 puffs Admin: 05/18/18 09:18 Dose: 1 puffs Admin: 05/18/18 04:43 Dose: 1 puffs Admin: 05/17/18 23:27 Dose: 1 puffs Admin: 05/17/18 20:33 Dose: 1 puffs Admin: 05/17/18 19:15 Dose: 1 puffs Atorvastatin Calcium (Lipitor) 80 mg PO HS BENJI Stop: 06/16/18 20:59 Last Admin: 05/20/18 20:19 Dose: 80 mg Admin: 05/19/18 20:48 Dose: 80 mg Admin: 05/18/18 20:23 Dose: 80 mg Admin: 05/17/18 20:34 Dose: 80 mg Cephalexin HCl (Keflex) 500 mg PO QID [facility]; Protocol Stop: 05/29/18 20:59 Last Admin: 05/21/18 13:09 Dose: 500 mg Admin: 05/21/18 07:59 Dose: 500 mg Admin: 05/20/18 20:20 Dose: 500 mg Admin: 05/20/18 16:01 Dose: 500 mg Admin: 05/20/18 11:58 Dose: 500 mg Admin: 05/20/18 07:42 Dose: 500 mg Admin: 05/19/18 20:47 Dose: 500 mg Enoxaparin Sodium (Lovenox) 40 mg SQ Q24H [facility]JI Stop: 06/16/18 17:59 Last Admin: 05/20/18 16:01 Dose: 40 mg Admin: 05/19/18 17:09 Dose: 40 mg Admin: 05/18/18 17:33 Dose: 40 mg Admin: 05/17/18 19:13 Dose: 40 mg Furosemide 40 mg/ Syringe 4 mls @ 4 mls/min IV [id number] BENJI Stop: 06/19/18 16:59 Last Admin: 05/21/18 07:59 Dose: 4 mls/min Admin: 05/20/18 15:59 Dose: 4 mls/min Lisinopril (Zestril) 20 mg PO QAM [facility]JI Stop: 06/17/18 08:59 Last Admin: 05/21/18 08:00 Dose: 20 mg Admin: 05/20/18 07:42 Dose: 20 mg Admin: 05/19/18 07:26 Dose: 20 mg Admin: 05/18/18 09:19 Dose: 20 mg Metoprolol Succinate (Toprol Xl) 50 mg PO QAM [facility]JI Stop: 06/18/18 08:59 Last Admin: 05/21/18 08:00 Dose: 50 mg Admin: 05/20/18 07:42 Dose: 50 mg Admin: 05/19/18 07:26 Dose: 50 mg Miscellaneous (Order Awaiting Action) 1 ea N/A QS [facility] Stop: 06/16/18 15:59 Last Admin: 05/21/18 08:00 Dose: Not Given Admin: 05/21/18 00:04 Dose: Not Given Admin: 05/20/18 19:03 Dose: Not Given Admin: 05/20/18 19:02 Dose: Not Given Admin: 05/19/18 23:14 Dose: Not Given Admin: 05/19/18 19:06 Dose: Not Given Admin: 05/19/18 19:06 Dose: Not Given Admin: 05/18/18 23:11 Dose: Not Given Admin: 05/18/18 16:16 Dose: Not Given Admin: 05/18/18 08:06 Dose: Not Given Admin: 05/17/18 23:28 Dose: Not Given Admin: 05/17/18 19:04 Dose: Not Given Potassium Chloride (Klor-Con M20) 20 meq PO BID BENJI Stop: 06/17/18 08:59 Last Admin: 05/21/18 07:59 Dose: 20 meq Admin: 05/20/18 20:19 Dose: 20 meq Admin: 05/20/18 07:43 Dose: 20 meq Admin: 05/19/18 20:48 Dose: 20 meq Admin: 05/19/18 07:27 Dose: 20 meq Admin: 05/18/18 20:23 Dose: 20 meq Admin: 05/18/18 10:17 Dose: 20 meq Fluticasone/Salmeterol (Advair Diskus 250/50) 1 puffs INH BID BENJI Stop: 06/16/18 20:59 Last Admin: 05/21/18 08:00 Dose: 1 puffs Admin: 05/20/18 20:20 Dose: 1 puffs Admin: 05/20/18 07:41 Dose: 1 puffs Admin: 05/19/18 20:47 Dose: 1 puffs Admin: 05/19/18 07:25 Dose: 1 puffs Admin: 05/18/18 20:27 Dose: 1 puffs Admin: 05/18/18 09:19 Dose: 1 puffs Admin: 05/17/18 19:16 Dose: Not Given
[2018-05-21] MEDS: ENOXAPARIN INJ 40 MG/0.4 ML SYR SQ SCH (17:09)
[2018-05-21] MEDS: ATORVASTATIN 40 MG TAB PO SCH (21:24)
[2018-05-22] MEDS: IPRATROPIUM BROMIDE/ALBUTEROL respimat INH INH SCH ×6 (00:10→19:47)
[2018-05-22 07:16] LABS: Calcium 8.5 mg/dl (8.5-10.1); Est GFR (African American) 91.2; Est GFR (Non-African American) 78.7
[2018-05-22] MEDS: METOPROLOL SUCC 50MG EXT REL TAB PO SCH (08:28)
[2018-05-22] MEDS: FUROSEMIDE 40 MG in SYRINGE 0 ML IV SCH ×2 (08:28→17:02)
[2018-05-22] MEDS: FLUTICASONE/SALMETEROL 250/50 (ADVAIR) 14 PUFF/1 INHALER INH SCH ×2 (08:29→19:47)
[2018-05-22] MEDS: cephALEXin 500 MG CAP PO SCH ×4 (08:29→19:47)
[2018-05-22] MEDS: POTASSIUM CHLORIDE 20 MEQ TABCR PO SCH ×2 (08:29→19:48)
[2018-05-22] MEDS: LISINOPRIL 20 MG TAB PO SCH (08:30)
--- NOTE | 2018-05-22 14:52 | Family Medicine Progress Note ---
Date of Service May 22, 2018 Assessment & Plan (1) Acute on chronic systolic CHF (congestive heart failure): Mr. Gallego is a 73yo M with a PMHx of HFrEF 40-45%, HTN, and HLD who admitted for acute on chronic CHR exacerbation and LLE cellulitis. Acute on Chronic CHF with EF 40-45% - Diuresing with lasix 40mg BID. Kidney function tolerating well. Still expect 5lb decrease with further diuresing. - Weight 109.7kg from 125.5 on admit; net -[id number] since admit. - Continue daily I/O's, wt checks, low-sodium diet, fluid restriction - Will followup with heart failure program on outpt - Continue Lisinopril 20mg daily - Two days ago, Metoprolol reduced to 50 mg from 200 daily 2/2 bradycardia, 50s overnight. No syncopal/hypotensive symptoms, although has had ns-VT as noted below. Continue metoprolol 50mg for now, may benefit from increase in other antihypertensives and possible entresto in the future. -ECHO- Image quality for echocardiogram was poor. LV systolic function mildly reduced, EF ~40-45% with apex akineses, global hypoknesis sparing anterolateral wall. Cards consulted, recommend medical management for potential ischemic cardiomyopathy with MAIKOL, BB. -Case management consulted over ability to manage medications. Pt declines home nursing. 2) CAD - No angina, no symptoms of ACS - Chronic mild elevation in trop at baseline - Not on aspirin due to allergy (hives) - Metoprolol as below as above - Atorvastatin 80mg daily 3) HTN - Currently well controlled - Metoprolol as above - Lisinopril as above 4) Cellulitis - Mild erythema, no pain, no warmth in LLE. Discoloration is post-inflammatory and will be present for likely months. - Continue Keflex 500mg QID for 5-10 day course of tx 5) COPD - No acute exacerbation - Continue umeclidinium daily - Continue Ipratropium-Albuterol 1 puff Q4H - Continue Advair 1 puff twice daily 6) Arrhythmia - Sinus with nonsustained VT - 12 second run of VT 05/20, asymptomatic; 5 beat run of vtach yesterday evening. - Continue metoprolol titration as above, titrate to HR - Nonsustained VT in the setting of HFrEF. No VT <30 seconds, no indication for lifevest/ICD at this time. Per cards EF does not meet criteria for ICD, could electrophysiologic testing could be considered in the future to risk stratify. 7) Tobacco abuse - Continue tobacco cessation counseling FULL DVT prophylaxis: Lovenox Dispo: Tele (2) CAD (coronary artery disease), [place] coronary artery: (3) Hypertension: (4) Cellulitis: (5) Arrhythmia: (6) Tobacco abuse: Supervising Physician Co-Signing Physician Notes I saw the patient with Dr. Simon and confirmed yoo portions of the history and physical exam. I agree with the impression and plan as noted above. Patient's admission weight was 276 pounds, and he weighs 241 pounds today, so he is down 35 pounds and about 11L. His kidney function remains about his baseline, and his "dry" weight, the best I can tell, is about 235 pounds. IMPRESSION/PLAN Acute on chronic CHF Continue IV diuresis Consider change to PO tomorrow Non compliance Consult case management to address obstacles (financial or logistical) to home medications CKD stage II Monitor BMP daily Treat comorbidities Cellulitis Continue Keflex Subjective Ti states his dyspnea has improved since admission. He has no chest pain, nausea, vomiting, diarrhea. He continues to urinate without difficulty. He notes that he does not have any prescription daily meds at home and that he ran out. Physical Exam 2 Vital Signs (Past 24 Hours): Last Vital Signs Temp 36.6 C 05/22/18 11:49 Pulse 76 05/22/18 11:49 Resp 18 05/22/18 11:49 BP 114/67 05/22/18 11:49 Pulse Ox 94 05/22/18 11:49 Constitutional: WD/WN, vitals as above Eyes: + anicteric sclerae and EOM intact bilaterally Neck: normal visual inspection and trachea midline Respiratory: no respiratory distress and does not use accessory muscles increased air movement today with mild crackles at posterior bases bilaterally Cardiovascular: Rate/Rhythm: regular rate Vessels: dorsalis pedis pulses present Extremities: + edema (2+ pitting) Gastrointestinal (Abdomen): Inspection/Auscultation: normal bowel sounds Percussion/Palpation: abdomen nontender Musculoskeletal: Head/Neck/Chest: normocephalic and head atraumatic erythema of distal 2/3 of bilateral legs without warmth or tenderness Neurologic: moves all extremities and awake Psychiatric: Orientation: alert and oriented x 3 Affect: euthymic affect Insight: + poor insight Results & Data Laboratory Results Laboratory Results - last 24 hr 05/22/18 05:45 Sodium 137 Potassium 4.0 Chloride 97 L Carbon Dioxide 34 H Anion Gap 6.0 BUN 16 Creatinine 0.96 Est Cr Clr Drug Dosing 89.0 Est GFR ( Amer) 91.2 Est GFR (Non-Af Amer) 78.7 BUN/Creatinine Ratio 17.0 Glucose 86 Calcium 8.5 Medications Administered Albuterol (Combivent Respimat) 1 puffs INH Q4 BENJI Stop: 06/16/18 16:06 Last Admin: 05/22/18 13:06 Dose: 1 puffs Admin: 05/22/18 08:29 Dose: 1 puffs Admin: 05/22/18 04:00 Dose: 1 puffs Admin: 05/22/18 00:10 Dose: 1 puffs Admin: 05/21/18 21:23 Dose: 1 puffs Admin: 05/21/18 17:10 Dose: 1 puffs Admin: 05/21/18 13:09 Dose: 1 puffs Admin: 05/21/18 07:59 Dose: 1 puffs Admin: 05/21/18 03:20 Dose: 1 puffs Admin: 05/21/18 00:03 Dose: 1 puffs Admin: 05/20/18 20:18 Dose: 1 puffs Admin: 05/20/18 15:59 Dose: 1 puffs Admin: 05/20/18 11:57 Dose: 1 puffs Admin: 05/20/18 07:40 Dose: 1 puffs Admin: 05/20/18 03:39 Dose: 1 puffs Admin: 05/19/18 23:13 Dose: 1 puffs Admin: 05/19/18 20:47 Dose: 1 puffs Admin: 05/19/18 16:09 Dose: 1 puffs Admin: 05/19/18 11:27 Dose: 1 puffs Admin: 05/19/18 07:25 Dose: 1 puffs Admin: 05/19/18 03:13 Dose: 1 puffs Admin: 05/18/18 23:11 Dose: 1 puffs Admin: 05/18/18 20:27 Dose: 1 puffs Admin: 05/18/18 16:17 Dose: 1 puffs Admin: 05/18/18 12:05 Dose: 1 puffs Admin: 05/18/18 09:18 Dose: 1 puffs Admin: 05/18/18 04:43 Dose: 1 puffs Admin: 05/17/18 23:27 Dose: 1 puffs Admin: 05/17/18 20:33 Dose: 1 puffs Admin: 05/17/18 19:15 Dose: 1 puffs Atorvastatin Calcium (Lipitor) 80 mg PO HS BENJI Stop: 06/16/18 20:59 Last Admin: 05/21/18 21:24 Dose: 80 mg Admin: 05/20/18 20:19 Dose: 80 mg Admin: 05/19/18 20:48 Dose: 80 mg Admin: 05/18/18 20:23 Dose: 80 mg Admin: 05/17/18 20:34 Dose: 80 mg Cephalexin HCl (Keflex) 500 mg PO QID BENJI; Protocol Stop: 05/29/18 20:59 Last Admin: 05/22/18 13:06 Dose: 500 mg Admin: 05/22/18 08:29 Dose: 500 mg Admin: 05/21/18 21:24 Dose: 500 mg Admin: 05/21/18 17:10 Dose: 500 mg Admin: 05/21/18 13:09 Dose: 500 mg Admin: 05/21/18 07:59 Dose: 500 mg Admin: 05/20/18 20:20 Dose: 500 mg Admin: 05/20/18 16:01 Dose: 500 mg Admin: 05/20/18 11:58 Dose: 500 mg Admin: 05/20/18 07:42 Dose: 500 mg Admin: 05/19/18 20:47 Dose: 500 mg Enoxaparin Sodium (Lovenox) 40 mg SQ Q24H BENJI Stop: 06/16/18 17:59 Last Admin: 05/21/18 17:09 Dose: 40 mg Admin: 05/20/18 16:01 Dose: 40 mg Admin: 05/19/18 17:09 Dose: 40 mg Admin: 05/18/18 17:33 Dose: 40 mg Admin: 05/17/18 19:13 Dose: 40 mg Furosemide 40 mg/ Syringe 4 mls @ 4 mls/min IV [id number] BENJI Stop: 06/19/18 16:59 Last Admin: 05/22/18 08:28 Dose: 4 mls/min Admin: 05/21/18 17:10 Dose: 4 mls/min Admin: 05/21/18 07:59 Dose: 4 mls/min Admin: 05/20/18 15:59 Dose: 4 mls/min Lisinopril (Zestril) 20 mg PO [facility] Stop: 06/17/18 08:59 Last Admin: 05/22/18 08:30 Dose: 20 mg Admin: 05/21/18 08:00 Dose: 20 mg Admin: 05/20/18 07:42 Dose: 20 mg Admin: 05/19/18 07:26 Dose: 20 mg Admin: 05/18/18 09:19 Dose: 20 mg Metoprolol Succinate (Toprol Xl) 50 mg PO [facility] Stop: 06/18/18 08:59 Last Admin: 05/22/18 08:28 Dose: 50 mg Admin: 05/21/18 08:00 Dose: 50 mg Admin: 05/20/18 07:42 Dose: 50 mg Admin: 05/19/18 07:26 Dose: 50 mg Miscellaneous (Order Awaiting Action) 1 ea N/A QS [facility] Stop: 06/16/18 15:59 Last Admin: 05/22/18 16:04 Dose: Not Given Admin: 05/22/18 08:30 Dose: Not Given Admin: 05/22/18 00:10 Dose: Not Given Admin: 05/21/18 17:10 Dose: Not Given Admin: 05/21/18 08:00 Dose: Not Given Admin: 05/21/18 00:04 Dose: Not Given Admin: 05/20/18 19:03 Dose: Not Given Admin: 05/20/18 19:02 Dose: Not Given Admin: 05/19/18 23:14 Dose: Not Given Admin: 05/19/18 19:06 Dose: Not Given Admin: 05/19/18 19:06 Dose: Not Given Admin: 05/18/18 23:11 Dose: Not Given Admin: 05/18/18 16:16 Dose: Not Given Admin: 05/18/18 08:06 Dose: Not Given Admin: 05/17/18 23:28 Dose: Not Given Admin: 05/17/18 19:04 Dose: Not Given Potassium Chloride (Klor-Con M20) 20 meq PO BID BENJI Stop: 06/17/18 08:59 Last Admin: 05/22/18 08:29 Dose: 20 meq Admin: 05/21/18 21:24 Dose: 20 meq Admin: 05/21/18 07:59 Dose: 20 meq Admin: 05/20/18 20:19 Dose: 20 meq Admin: 05/20/18 07:43 Dose: 20 meq Admin: 05/19/18 20:48 Dose: 20 meq Admin: 05/19/18 07:27 Dose: 20 meq Admin: 05/18/18 20:23 Dose: 20 meq Admin: 05/18/18 10:17 Dose: 20 meq Fluticasone/Salmeterol (Advair Diskus 250/50) 1 puffs INH BID [facility]ENJI Stop: 06/16/18 20:59 Last Admin: 05/22/18 08:29 Dose: 1 puffs Admin: 05/21/18 21:23 Dose: 1 puffs Admin: 05/21/18 08:00 Dose: 1 puffs Admin: 05/20/18 20:20 Dose: 1 puffs Admin: 05/20/18 07:41 Dose: 1 puffs Admin: 05/19/18 20:47 Dose: 1 puffs Admin: 05/19/18 07:25 Dose: 1 puffs Admin: 05/18/18 20:27 Dose: 1 puffs Admin: 05/18/18 09:19 Dose: 1 puffs Admin: 05/17/18 19:16 Dose: Not Given
--- NOTE | 2018-05-22 16:45 | Heart Failure Progress Note ---
Date of Service May 22, 2018 Assessment & Plan (1) Acute on chronic systolic CHF (congestive heart failure): Patient has had an excellent response to current diuretic therapy. He was reduced to 40 mg IV of Lasix yesterday. His diuresis did slow a bit today compared to previous days. Will continue to closely monitor his volume status. Symptomatically he is improving. His BUN/Cr have remained stable. Patient has a history of non-compliance. It is strongly recommended that the patient go home with home nursing however he has currently declined. He feels that his will be able to monitor his weights and medications. We discussed the importance of daily weights. He was instructed to bring them to each follow up appointment. We also reviewed low sodium diet and fluid restriction. It was recommended that he follow up closely with the heart failure program upon discharge. He is agreeable. Anticipate follow up with CHF clinic within 7 days of discharge. (2) Ischemic cardiomyopathy: EF is 40-45% on recent echocardiogram. He should continue guideline based medications- Lisinopril 20 mg daily and Metoprolol 50 mg daily. May continue to titrate as an outpatient as long as kidney function and BP allow. Based on his ejection fraction, he does not meet criteria for implantation of an ICD for primary prevention. In the setting of syncope with intermediate degrees of LV dysfunction, electrophysiologic testing could be done in order to further risk stratify him for an ICD. Subjective Mr. Gallego is a pleasant 73-year-old gentleman with a history significant for CAD status post CABG x2 in 2000, ischemic cardiomyopathy, COPD, syncope, systolic CHF, and hypertension. His primary panel sewer is Dr. Skelton. Patient is feeling better overall. His edema has improved significantly since I first saw him on Monday. He is currently comfortable and sitting up in bed. He has sigificantly diuresed over 11 L since admission and is down almost 35 lbs. He has been sleeping in a reclined position, mainly due to his back issues. He denies chest pain, lightheadedness, or PND. Physical Exam Vital Signs (Past 24 Hours): Last Vital Signs Temp 36.6 C 05/22/18 15:04 Pulse 50 L 05/22/18 15:04 Resp 18 05/22/18 15:04 BP 127/73 05/22/18 15:04 Pulse Ox 93 05/22/18 15:04
[2018-05-22] MEDS: ENOXAPARIN INJ 40 MG/0.4 ML SYR SQ SCH (17:03)
[2018-05-22] MEDS: ATORVASTATIN 40 MG TAB PO SCH (19:47)
[2018-05-23] MEDS: IPRATROPIUM BROMIDE/ALBUTEROL respimat INH INH SCH ×7 (00:10→23:06)
[2018-05-23 06:52] LABS: BUN Creatinine Ratio 19.2 (10-20); Calcium 8.8 mg/dl (8.5-10.1); Creatinine Clr Calc Pharmacy 82.3 ml/min; Est GFR (African American) 83.7; Est GFR (Non-African American) 72.2; Potassium 4.4 mmol/L (3.5-5.1)
[2018-05-23] MEDS: FLUTICASONE/SALMETEROL 250/50 (ADVAIR) 14 PUFF/1 INHALER INH SCH ×2 (07:53→19:38)
[2018-05-23] MEDS: FUROSEMIDE 40 MG in SYRINGE 0 ML IV SCH ×2 (07:54→16:41)
[2018-05-23] MEDS: LISINOPRIL 20 MG TAB PO SCH (07:54)
[2018-05-23] MEDS: METOPROLOL SUCC 50MG EXT REL TAB PO SCH (07:54)
[2018-05-23] MEDS: POTASSIUM CHLORIDE 20 MEQ TABCR PO SCH ×2 (07:54→19:39)
[2018-05-23] MEDS: cephALEXin 500 MG CAP PO SCH ×4 (07:55→19:39)
--- NOTE | 2018-05-23 12:43 | Family Medicine Progress Note ---
Date of Service May 23, 2018 Assessment & Plan (1) Acute on chronic systolic CHF (congestive heart failure): Mr. Gallego is a 73yo M with a PMHx of HFrEF 40-45%, HTN, and HLD who admitted for acute on chronic CHR exacerbation and LLE cellulitis. Acute on Chronic CHF with EF 40-45% - Diuresing with lasix 40mg BID. Kidney function tolerating well. Still expect 2.5lb decrease with further diuresing. He lost another 1.7kg for a total of approx 40 lb loss. - Weight 108kg from 125.5 on admit; net [id number] since admit. - Continue daily I/O's, wt checks, low-sodium diet, fluid restriction - Will followup with heart failure program on outpt - Continue Lisinopril 20mg daily - Three days ago, Metoprolol reduced to 50 mg from 200 daily 2/2 bradycardia, 50s overnight. No syncopal/hypotensive symptoms, although has had ns-VT as noted below. Continue metoprolol 50mg for now, may benefit from increase in other antihypertensives and possible entresto in the future. -ECHO- Image quality for echocardiogram was poor. LV systolic function mildly reduced, EF ~40-45% with apex akineses, global hypoknesis sparing anterolateral wall. Cards consulted, recommend medical management for potential ischemic cardiomyopathy with MAIKOL, BB. -Case management consulted over ability to manage medications. Pt declines home nursing. 2) CAD - No angina, no symptoms of ACS - Chronic mild elevation in trop at baseline - Not on aspirin due to allergy (hives) - Metoprolol as below as above - Atorvastatin 80mg daily 3) HTN - Currently well controlled - Metoprolol as above - Lisinopril as above 4) Cellulitis - Mild erythema, no pain, no warmth in LLE. Discoloration is post-inflammatory and will be present for likely months. - Continue Keflex 500mg QID for 5-10 day course of tx 5) COPD - No acute exacerbation - Continue umeclidinium daily - Continue Ipratropium-Albuterol 1 puff Q4H - Continue Advair 1 puff twice daily 6) Arrhythmia - Sinus with nonsustained VT - 12 second run of VT 05/20, asymptomatic; 5 beat run of vtach yesterday evening. - Continue metoprolol titration as above, titrate to HR - Nonsustained VT in the setting of HFrEF. No VT <30 seconds, no indication for lifevest/ICD at this time. Per cards EF does not meet criteria for ICD, could electrophysiologic testing could be considered in the future to risk stratify. 7) Tobacco abuse - Continue tobacco cessation counseling FULL DVT prophylaxis: Lovenox Dispo: Tele (2) CAD (coronary artery disease), [place] coronary artery: (3) Hypertension: (4) Cellulitis: (5) Arrhythmia: (6) Tobacco abuse: Supervising Physician Co-Signing Physician Notes I saw the patient with Dr. Simon and confirmed yoo portions of the history and physical exam. I agree with the impression and plan as noted above. The patient continues to diurese. He is down nearly 40 pounds since his admission; his renal function has not changed despite this continued diuresis. IMPRESSION/PLAN Acute on chronic CHF Continue IV diuresis Consider change to PO tomorrow Non compliance Consult case management to address obstacles (financial or logistical) to home medications CKD stage II Monitor BMP daily Treat comorbidities Cellulitis Slowly improving Continue Keflex Subjective Ti states his dyspnea has improved greatly since admission. He has no chest pain, nausea, vomiting, diarrhea. He continues to urinate without difficulty. He notes that leg swelling, redness, and has not had as much pain. Physical Exam Vital Signs (Past 24 Hours): Last Vital Signs Temp 36.3 C L 05/23/18 11:02 Pulse 50 L 05/23/18 11:02 Resp 16 05/23/18 11:02 BP 117/69 05/23/18 11:02 Pulse Ox 96 05/23/18 11:02 Constitutional: WD/WN, vitals as above Eyes: + anicteric sclerae and EOM intact bilaterally Neck: normal visual inspection and trachea midline Respiratory: no respiratory distress and does not use accessory muscles Cardiovascular: Rate/Rhythm: regular rate Vessels: dorsalis pedis pulses present Extremities: + edema (2+ pitting) Gastrointestinal (Abdomen): Inspection/Auscultation: normal bowel sounds Percussion/Palpation: abdomen nontender Musculoskeletal: Head/Neck/Chest: normocephalic and head atraumatic Neurologic: moves all extremities and awake Psychiatric: Orientation: alert and oriented x 3 Affect: euthymic affect Insight: + poor insight
[2018-05-23] MEDS: ENOXAPARIN INJ 40 MG/0.4 ML SYR SQ SCH (18:12)
[2018-05-23] MEDS: ATORVASTATIN 40 MG TAB PO SCH (19:39)
[2018-05-24] MEDS: IPRATROPIUM BROMIDE/ALBUTEROL respimat INH INH SCH ×3 (04:56→12:10)
[2018-05-24] MEDS: FLUTICASONE/SALMETEROL 250/50 (ADVAIR) 14 PUFF/1 INHALER INH SCH (08:00)
[2018-05-24] MEDS: FUROSEMIDE 40 MG in SYRINGE 0 ML IV SCH (08:01)
[2018-05-24] MEDS: cephALEXin 500 MG CAP PO SCH ×2 (08:01→13:37)
[2018-05-24] MEDS: METOPROLOL SUCC 50MG EXT REL TAB PO SCH (08:01)
[2018-05-24] MEDS: LISINOPRIL 20 MG TAB PO SCH (08:02)
[2018-05-24] MEDS: POTASSIUM CHLORIDE 20 MEQ TABCR PO SCH (08:07)
[2018-05-24 10:05] LABS: BUN Creatinine Ratio 22.2 (10-20); Creatinine Clr Calc Pharmacy 89.1 ml/min; Est GFR (African American) 92.3; Est GFR (Non-African American) 79.7; Potassium 4.4 mmol/L (3.5-5.1)
--- NOTE | 2018-05-24 12:18 | Cardiology Progress Note ---
Date of Service May 24, 2018 Assessment & Plan (1) Acute on chronic systolic CHF (congestive heart failure): He continues do well on his current diuretic therapy. His renal function electrolytes appear good. He can continue this regimen currently. He will need to transition to oral regimen prior to discharge. Patient has a history of non-compliance. It is strongly recommended that the patient go home with home nursing however he has currently declined. He feels that his will be able to monitor his weights and medications. We discussed the importance of daily weights. He was instructed to bring them to each follow up appointment. We also reviewed low sodium diet and fluid restriction. It was recommended that he follow up closely with the heart failure program upon discharge. He is agreeable. Anticipate follow up with CHF clinic within 7 days of discharge. (2) Ischemic cardiomyopathy: EF is 40-45% on recent echocardiogram. He should continue guideline based medications- Lisinopril 20 mg daily and Metoprolol 50 mg daily. May continue to titrate as an outpatient as long as kidney function and BP allow. Based on his ejection fraction, he does not meet criteria for implantation of an ICD for primary prevention. In the setting of syncope with intermediate degrees of LV dysfunction, electrophysiologic testing could be done in order to further risk stratify him for an ICD. Subjective This morning the patient claims to be feeling well. He was able to ambulate around the [place] with the assistance of nursing staff. He states that he did get fatigue and had some dyspnea, but this is much improved since admission. He is happy with the improvement in his lower extremity edema. He continues to have an element of erythema. No dizziness reported. Physical Exam Vital Signs (Past 24 Hours): Last Vital Signs Temp 36.4 C L 05/24/18 11:36 Pulse 50 L 05/24/18 11:36 Resp 19 05/24/18 11:36 BP 109/62 05/24/18 11:36 Pulse Ox 95 05/24/18 11:36 Physical Exam: The patient is alert and oriented. Mood and affect appeared normal. He answered all questions appropriately. HEENT: Pupils are equal and reactive to light and accommodation. Extraocular movements are intact. The sclerae are anicteric. Neuro: Cranial nerves intact Lungs: Apices are clear. Cardiac: Heart demonstrates a regular rate and rhythm with frequent ectopy. Normal S1 and S2. Pulses: The patient has palpable radial pulses bilaterally that are equal in intensity Extremities: There was no evidence of hypoperfusion. There is no cyanosis or clubbing. He has moderate lower extremity edema with erythema. Skin: I did not appreciate any rashes on examination today. Results & Data Laboratory Results Abnormal Lab Results 05/24/18 09:16 Sodium 134 L Potassium 4.4 Chloride 98 Carbon Dioxide 30 Anion Gap 6.0 BUN 21 H Creatinine 0.95 Est Cr Clr Drug Dosing 89.1 Est GFR ( Amer) 92.3 Est GFR (Non-Af Amer) 79.7 BUN/Creatinine Ratio 22.2 H Glucose 109 H Calcium 9.0 ECG Additional Comments: Reviewed his telemetry reveals occasional ventricular ectopy but no sustained arrhythmias.
--- NOTE | 2018-05-24 15:30 | Discharge Summary ---
Date of Service May 24, 2018 Admission HPI Per Admitting Provider 73 yo male with history of combined heart failure, EF of 35% and COPD presents to the ED complaining of shortness of breath that has progressed over the past several days. He was seen in December of 2017 for the exact same presentation, his weight was up at 275lbs from reported baseline of 230lbs, he was diuresed 2.5 liters and discharged to home on increased dose of Lasix 60mg, up from 40mg. He says that over the past week or so he has felt more short of breath. He says that over the past few weeks he has seen more and more swelling in his legs and that over the past week the right leg has turned red. No fever or chills. When asked if he is taking his medications he says that he ran out of most of his medications. I asked him how long he has been out of them and he said he did not know. When asked why he ran out he said it was an issue with his insurance provider, something had changed. I asked if he saw his PCP for prescriptions and he said he did not know. He apparently is in charge of his own medications but he could not tell me what he is supposed to be taking. He admits that he drinks a lot of water during the day as well as black coffee in the morning and soda occasionally, always decaffeinated. He says he never adds salt to his food, but cannot tell me if he eats foods high in sodium. He does not weigh himself at home. In the ED he was obviously volume overloaded with pitting edema above the knees bilaterally. Lung sounds were diminished but he had rales. CXR with cardiomegaly and bilateral pulmonary edema. He was given a dose of Lasix 40mg IV and he urinated about 500cc total in one hour. Asked him who his bilingual executive assistant is, he first said Dr. cMclain. Explained that he was a lung doctor who no longer practices here. He then said that he thinks he used to see Dr. Odonnell, but cannot remember the last time he saw him. He denies any chest pain or pressure today. No fever or chills. No abdominal pain, nausea, vomiting, diarrhea or constipation. He has the edema bilaterally and redness in his legs. Principal Diagnosis Acute on Chronic Combined Heart Failure Discharge Exam Constitutional WD/WN, vitals as above Eyes + anicteric sclerae and EOM intact bilaterally Neck normal visual inspection and trachea midline Respiratory no respiratory distress and does not use accessory muscles Cardiovascular Rate/Rhythm: regular rate Vessels: dorsalis pedis pulses present Extremities: + edema (2+ pitting) Gastrointestinal (Abdomen) Inspection/Auscultation: normal bowel sounds Percussion/Palpation: abdomen nontender Musculoskeletal Head/Neck/Chest: normocephalic and head atraumatic Neurologic moves all extremities and awake Psychiatric Orientation: alert and oriented x 3 Affect: euthymic affect Insight: + poor insight Discharge Data Allergies Allergy/AdvReac Type Severity Reaction Status Date / Time aspirin Allergy Severe Hives Verified 05/17/18 13:07 Consultations 05/17/18 14:00 ED Decision to Admit Stat 05/17/18 16:07 Consult Cardiology Routine Consult Case Management - Discharge Planning Routine Hospital Course (1) Acute on chronic systolic CHF (congestive heart failure): Mr. Gallego is a 73yo M with a PMHx of HFrEF 40-45%, HTN, and HLD who admitted for acute on chronic CHR exacerbation and LLE cellulitis. Acute on Chronic CHF with EF 40-45% - Diuresing with lasix 40mg BID. Kidney function tolerating well. Still expect 2.5lb decrease with further diuresing. He lost another 1.7kg for a total of approx 40 lb loss. His weight at discharge was 107.6 kg; his creatinine at discharge was 0.95. Discussed with patient and spouse at length need for pre scription med compliance, gave patient Rx for all meds. Discussed need for follow up with cardiology next and PCP in 2 weeks. - Weight 107.6kg from 125.5 on admit; net -[id number] since admit. - Continue daily I/O's, wt checks, low-sodium diet, fluid restriction - Will followup with heart failure program on outpt - Continue Lisinopril 20mg daily - Four days ago, Metoprolol reduced to 50 mg from 200 daily 2/2 bradycardia, 50s overnight. No syncopal/hypotensive symptoms, although has had ns-VT as noted below. Continue metoprolol 50mg for now, may benefit from increase in other antihypertensives and possible entresto in the future. -ECHO- Image quality for echocardiogram was poor. LV systolic function mildly reduced, EF ~40-45% with apex akineses, global hypoknesis sparing anterolateral wall. Cards consulted, recommend medical management for potential ischemic cardiomyopathy with MAIKOL, BB. -Case management consulted over ability to manage medications. Pt declines home nursing. 2) CAD - No angina, no symptoms of ACS - Chronic mild elevation in trop at baseline - Not on aspirin due to allergy (hives) - Metoprolol as below as above - Atorvastatin 80mg daily 3) HTN - Currently well controlled - Metoprolol as above - Lisinopril as above 4) Cellulitis - Mild erythema, no pain, no warmth in LLE. Discoloration is post-inflammatory and will be present for likely months. - Continue Keflex 500mg QID for 5-10 day course of tx 5) COPD - No acute exacerbation - Continue umeclidinium daily - Continue Ipratropium-Albuterol 1 puff Q4H - Continue Advair 1 puff twice daily 6) Arrhythmia - Sinus with nonsustained VT - 12 second run of VT 05/20, asymptomatic; 5 beat run of vtach yesterday evening. - Continue metoprolol titration as above, titrate to HR - Nonsustained VT in the setting of HFrEF. No VT <30 seconds, no indication for lifevest/ICD at this time. Per cards EF does not meet criteria for ICD, could electrophysiologic testing could be considered in the future to risk stratify. 7) Tobacco abuse - Continue tobacco cessation counseling FULL DVT prophylaxis: Lovenox Dispo: Tele (2) CAD (coronary artery disease), [place] coronary artery: (3) Hypertension: (4) Cellulitis: (5) Arrhythmia: (6) Tobacco abuse: Total Time Total Time Spent Total Time Spent (In Minutes): 45 Total Time Includes: Examination of the Patient, Discharge Planning, Medication Reconciliation and Communication With Other Providers Discharge Plan Discharge Items Patient Disposition: Home - Self-Care Reason For Visit: ACUTE ON CHRONIC COMBINED HEART FAILURE Discharge Diagnosis: Acute on chronic combined heart failure Discharge Goals: Improve disease control and Therapeutic intervention Activity: Per 'Additional Instructions' section Non-emergency contact: Primary Care Provider Call non-emergency contact if: you have any medication questions, your symptoms worsen and your pain is worsening Follow-up/Referrals: Mary Kate Mireles MD [Primary Care Provider] - 06/07/18 2:00 pm (Please, follow up at Dr. Mireles's office with her associate, Shahida GERBER, on June 07 at 2:00 pm. *If you need to change this appointment, call the office at [phone].) Azul Johnson PA-C [Physician] - 05/31/18 2:00 pm (Please, follow up at [facility] Office with Sheri Johnson PA-C on May 31 at 2:00 pm. *This office is located in [address] of [facility] - big building next to this hospital. If you need to change this appointment, call the office at [phone].) Diet: Heart Healthy and Low Sodium (2gm) Other Ambulatory Orders: Basic Metabolic Panel (Routine) Timeframe: 1 Week Location: Determined by Patient Ordered By: Calvin Fulton Provider Instructions: You must take your medications. Especially your Lasix. Your Lasix dose will be 60mg every morning. You will take one Lasix 40mg pill and one Lasix 20mg pill for a total dose of 60mg. All of your prescription medications have been electronically sent to [facility]. You will need to continue Cephalexin (Keflex) antibiotic for 3 more days for your leg cellulitis/infection. You will take one pill 4 times per day until medication is finished. You must weigh yourself daily to ensure your weight doesn't increase by more than 2 pounds per day. This could be a sign of fluid retention. Please call your PCP or Food Production Machine Operator if this happens. No more than 2 grams of salt per day. You will need to get lab work in one week to check your kidney function. An order was placed. You have have chest pain or worsening shortness of breath call 911. Your weight at discharge at 107.6 kg or 236 pounds. Your creatinine lab level was 0.95 (normal) at discharge. Prescriptions: New atorvastatin 40 mg Tablet 80 mg PO HS 30 Days Qty: 60 RF: 0 metoprolol succinate 50 mg Tablet Extended Release 24 Hr 50 mg PO QAM 30 Days Qty: 30 RF: 0 lisinopril 20 mg Tablet 20 mg PO QAM 30 Days Qty: 30 RF: 0 cephalexin 500 mg Capsule 500 mg PO QID 3 Days Qty: 12 RF: 0 Combivent Respimat 20-100 mcg/actuation Mist 1 puff Inhalation Q4 30 Days Qty: 14.7 RF: 0 fluticasone-salmeterol [Advair Diskus] 250-50 mcg/dose Blister With Device 1 puff Inhalation BID 30 Days Qty: 1 RF: 0 potassium chloride [Klor-Con M20] 20 mEq Tablet,Er Particles/Crystals 20 meq PO BID 30 Days Qty: 60 RF: 0 furosemide [Lasix] 40 mg tablet 40 mg PO QAM 30 Days Qty: 30 RF: 0 furosemide [Lasix] 20 mg tablet 20 mg PO QAM 30 Days Qty: 30 RF: 0 Continued umeclidinium [Incruse Ellipta] 62.5 mcg/actuation Blister With Device 1 inh INHALATION QAM RF: 0 Discontinued furosemide [Lasix] 40 mg tablet 40 mg PO QAM RF: 0 atorvastatin 40 mg Tablet 80 mg PO HS RF: 0 fluticasone-salmeterol [Advair Diskus] 250-50 mcg/dose Blister With Device 1 inh INHALATION BID RF: 0 lisinopril 20 mg Tablet 20 mg PO QAM RF: 0 metoprolol succinate 100 mg Tablet Extended Release 24 Hr 200 mg PO QAM RF: 0 Combivent Respimat 20-100 mcg/actuation Mist 1 puff INHALATION Q4 RF: 0 Visit Report Forms: Smoking Cessation Stand-Alone Forms: [facility]/Other Patient Handouts: Heart Failure Tracking Weight, Heart Failure Diet Changes, Heart Failure Helpful Meds, CHF Ch Discharge Orders: Discharge Order (Routine); Ordered 05/24/18 Ordered By: Calvin Simon Admission Data Admit Date/Time: 05/17/18 14:27 Attending Provider: Kenneth Rincon Admit Provider: Lul Callejas Primary Care Provider: Mary Kate Mireles Other Providers: Lul Callejas ; Cedric Odonnell Jr Service: Telemetry Other Interventions: Discharge Summary Assessment (RN) Last Done: 05/24/18 15:48 Pending Studies at Discharge: No DC Date/Time DO NOT enter until pt leaves facility: 05/24/18 16:12 Supervising Physician Co-Signing Physician Notes I saw the patient with Dr. Simon and confirmed yoo portions of the history and physical exam. I agree with the impression and plan as noted above. He has diuresed more than 40 pounds and 14 L of fluid since his admission. IMPRESSION/PLAN Acute on chronic CHF Lasix 60 mg p.o. daily; the necessity of this medication was emphasized with the patient several times. Follow-up in the CHF clinic in 1 week and his primary care physician in 2 weeks Will need repeat BMP following the 1 week appointment Cellulitis Complete outpatient course of Keflex
== END 2018-05-24 16:12 | disposition home or self-care (01) | DRG 291 ==
LOC: ED 11:57 → SUATTDRO 14:27 → 2S 14:27